=== PATIENT | male | born 1960 | race Caucasian/White ===

== ENCOUNTER → 2020-10-03 | Outpatient (CLI) | payer MEDICARE ==
--- NOTE | 2020-10-03 13:02 | US ---
EXAMINATION TYPE: US venous doppler duplex LE LT DATE OF EXAM: 10/03/2020 12:38 PM COMPARISON: NONE CLINICAL HISTORY: R22.42 SWELLING LEFT LEG. SIDE PERFORMED: Left TECHNIQUE: The lower extremity deep venous system is examined utilizing real time linear array sonog namrata with graded compression, doppler sonography and color-flow sonography. VESSELS IMAGED: Common Femoral Vein Deep Femoral Vein Greater Saphenous Vein * Femoral Vein Popliteal Vein Small Saphenous Vein * Proximal Calf Veins (* superficial vessels) Left Leg: Negative for DVT IMPRESSION: 1. Left lower extremity ultrasound negative for deep venous thrombosis.
== END | disposition home or self-care (01) ==
LOC: RADUSWWP 12:15
PROVIDERS: ATTEND Internal Medicine Hematology & Oncology
DX: R22.42 Localized swelling, mass and lump, left lower limb (principal)

== ENCOUNTER 2020-10-15 20:17 | Emergency (ER) | payer MEDICARE ==
[2020-10-15 20:42] VITALS: RESP 18
--- NOTE | 2020-10-15 22:59 | ED ---
Recheck HPI - General Chief Complaint: Abdominal Pain Stated Complaint: Enlarged stoma Time Seen by Provider: 10/15/20 22:20 Source: patient Mode of arrival: ambulatory Limitations: no limitations - Related Data Home Medications Medication Instructions Recorded Confirmed Atorvastatin [Lipitor] 1 tab PO DAILY 09/24/20 10/10/20 Benazepril [Lotensin] 20 mg PO DAILY 09/24/20 10/10/20 Docusate [Colace] 1 tab PO TID 09/24/20 10/10/20 HYDROcodone/APAP 10-325MG [[place] 1 tab PO Q4HR PRN 09/24/20 10/10/20 10-325] HYDROmorphone [Dilaudid] 1 tab PO Q6HR PRN 09/24/20 10/10/20 Omeprazole 1 tab PO DAILY 09/24/20 10/10/20 Ondansetron HCl [Zofran] 1 tab PO DIRECTED PRN 09/24/20 10/10/20 Prochlorperazine [Compazine] 1 tab PO DIRECTED PRN 09/24/20 10/10/20 Propranolol HCl 1 tab PO BID 09/24/20 10/10/20 Tamsulosin [Flomax] 1 tab PO DAILY 09/24/20 10/10/20 dronabinoL [Marinol] 1 tab PO BID 09/24/20 10/10/20 Morphine Sulfate [Ms Contin] 60 mg PO Q8HR PRN 10/10/20 10/10/20 Allergies Allergy/AdvReac Type Severity Reaction Status Date / Time No Known Allergies Allergy Verified 10/15/20 20:42 Review of Systems ROS Statement: Those systems with pertinent positive or pertinent negative responses have been documented in the HPI. ROS Other: All systems not noted in ROS Statement are negative. Past Medical History Past Medical History: Cancer, Hyperlipidemia, Hypertension Additional Past Medical History / Comment(s): arthritis,pancreatic cancer with mets to liver and lung History of Any Multi-Drug Resistant Organisms: None Reported Past Surgical History: Appendectomy, Back Surgery, Bladder Surgery Additional Past Surgical History / Comment(s): colonoscopy,colostomy,liver biopsy,port placement Past Anesthesia/Blood Transfusion Reactions: No Reported Reaction Smoking Status: Never smoker Past Alcohol Use History: None Reported Past Drug Use History: None Reported General Exam Limitations: no limitations Course Vital Signs 10/15/20 20:37 Temperature 98.0 F Pulse Rate 76 Respiratory 18 Rate Blood Pressure 138/91 O2 Sat by Pulse 97 Oximetry Disposition Clinical Impression: Stomal prolapse Disposition: HOME SELF-CARE Condition: Good Instructions (If sedation given, give patient instructions): Rectal Prolapse (ED) Is patient prescribed a controlled substance at d/c from ED?: No Referrals: Cory Hays MD [STAFF PHYSICIAN] - 1-2 days
[2020-10-16 01:19] VITALS: BP 134/89; PULSE 80; TEMP 97.8
== END 2020-10-16 00:20 | disposition home or self-care (01) ==
LOC: EC 20:17
DX: K31.89 Other diseases of stomach and duodenum (principal); E78.5 Hyperlipidemia, unspecified; I10 Essential (primary) hypertension; Z90.49 Acquired absence of other specified parts of digestive tract

== ENCOUNTER → 2020-10-15 | Outpatient (CLI) | payer MEDICARE ==
[2020-10-15 15:42] LABS: African American GFR (CKD) >90 (>60 ml/min/1.73 sqM); Blood Urea Nitrogen 6 mg/dL (9-20); Non-African American GFR(CKD) >90 (>60 ml/min/1.73 sqM)
--- NOTE | 2020-10-16 09:40 | CT ---
EXAMINATION TYPE: CT ChestAbdPelvis w con DATE OF EXAM: 10/15/2020 COMPARISON: CT 08/03/2020 from outside institution HISTORY: Follow up for pancreatic cancer. CT DLP: 706.6 mGycm Automated exposure control for dose reduction was used. CONTRAST: CT scan of the chest, abdomen and pelvis is performed without Oral Contrast and with IV Contrast, pat ient injected with 100ml mL of Isovue 300. FINDINGS: LUNGS: The lungs are grossly clear, there is no concerning parenchymal mass or nodule identified. T here is no pleural effusion or pneumothorax seen. The tracheobronchial tree is patent. MEDIASTINUM: There are no greater than 1 cm hilar or mediastinal lymph nodes. No pericardial effusi on is seen. AORTA: No significant abnormality is seen. OTHER: There is a port in the right pectoral region coursing via the internal jugular vein approach to the level of the superior vena cava. LIVER/GB: The previously identified peripheral enhancing nodules within the liver are not as well see n, only some minimal low-attenuation is scattered nodularity towards the dome of the liver is present , peripherally enhancing nodules have become less conspicuous but are seen on axial image #62. Gallbl adder is contracted PANCREAS: Pancreatic mass is also less conspicuous, the dilation of the pancreatic duct is no longer seen SPLEEN: No significant abnormality is seen. ADRENALS: No significant abnormality is seen. KIDNEYS: No significant abnormality is seen. REPRODUCTIVE ORGANS: There is some calcification within the prostate, some thickening of the vas defe rens is stable BOWEL: Postop changes are again noted, there is an ostomy in the left lower quadrant, retained stool has improved, some mild thickening of the rectal wall is again noted, there is postop change present in the pelvis related to the sigmoid colon. FREE AIR: Resolved compared to prior. ASCITES: None seen. RETROPERITONEAL ADENOPATHY: No retroperitoneal adenopathy is seen. LYMPH NODES: No greater than 1 cm abdominal or pelvic lymph nodes are appreciated. URINARY BLADDER: , Left-sided [place] diverticuli again noted. PELVIC ADENOPATHY: None visualized. OSSEOUS STRUCTURES: Sclerotic foci involving the pelvis are somewhat more well-defined, lesion in th e proximal left femur appears somewhat improved. Sclerotic foci present within the spine and ribs are noted, sternum and manubrium, right scapula visualized foci within the lower spine more conspicuous. IMPRESSION: There is improvement in the appearance of the liver and pancreas. Bone metastases are be tter visualized than on prior, possible treatment changes, additional findings above
== END | disposition home or self-care (01) ==
LOC: RADPROMAIN 14:39
PROVIDERS: ATTEND Internal Medicine Hematology & Oncology
DX: Z03.89 Encounter for observation for other suspected diseases and conditions ruled out (principal); C25.1 Malignant neoplasm of body of pancreas; C79.51 Secondary malignant neoplasm of bone; K76.89 Other specified diseases of liver; K82.0 Obstruction of gallbladder; N42.89 Other specified disorders of prostate; N32.3 Diverticulum of bladder; Z95.828 Presence of other vascular implants and grafts
CPT/HCPCS: 82565; 84520; 71260; 74177; 36415; J1642; Q9967

== ENCOUNTER → 2020-10-17 | Outpatient (CLI) | payer MEDICARE ==
[2020-10-17 11:28] LABS: Potassium 4.1 mmol/L (3.5-5.1)
[2020-10-17 11:51] LABS: Anisocytosis Slight; HCT 36.6 % (39.0-53.0); HGB 12.3 gm/dL (13.0-17.5); MCH 30.7 pg (25.0-35.0); MCHC 33.7 g/dL (31.0-37.0); MCV 91.2 fL (80.0-100.0); Mean Platelet Volume 8.3; RBC 4.01 m/uL (4.30-5.90); RDW 16.6 % (11.5-15.5); WBC 2.4 k/uL (3.8-10.6)
[2020-10-17 12:44] LABS: Platelet Count 88 k/uL (150-450)
== END | disposition home or self-care (01) ==
LOC: LABPAT 09:58
PROVIDERS: ATTEND Surgery
DX: Z01.818 Encounter for other preprocedural examination (principal); K94.09 Other complications of colostomy
CPT/HCPCS: 36415; 80051; 85027; 93005

== ENCOUNTER 2020-10-19 09:48 | Inpatient (IN) | payer MEDICARE ==
[2020-10-17 14:34] VITALS: BMI 21.5
[~2020-10-19 09:48] MED LIST: ACETAMINOPHEN TAB 500 MG TAB PO PRN; HEPARIN SODIUM,PORCINE/PF 5,000 UNIT/0.5 ML SYRINGE SQ PRN; LACTATED RINGERS 1,000 ML IV SCH; LIDOCAINE 1% (10MG/ML) FOR IV START INTRADERMA PRN; MIDAZOLAM 2 MG/2 ML VIAL IV PRN; metroNIDAZOLE-NS PMX 500 MG in SALINE 1 100ML.BAG IVPB PRN
[2020-10-19] MEDS ORDERED: ONDANSETRON 4 MG/2 ML VIAL ONE (10:49)
[2020-10-19] MEDS ORDERED: ONDANSETRON 4 MG/2 ML VIAL IVP ONE (10:53)
[2020-10-19] MEDS ORDERED: DEXAMETHASONE SOD PHOSPHATE 4 MG/ML 1 ML VIAL IV ONE (10:53)
[2020-10-19 11:06] LABS: Anisocytosis Slight; Basophils % (A) 0 %; Eosinophils # (A) 0.6 k/uL (0-0.7); Eosinophils % (A) 12 %; HCT 36.4 % (39.0-53.0); Lymphocytes # (A) 0.9 k/uL (1.0-4.8); Lymphocytes % (A) 18 %; MCH 29.8 pg (25.0-35.0); MCV 90.4 fL (80.0-100.0); Mean Platelet Volume 7.9; Monocytes # (A) 0.4 k/uL (0-1.0); Monocytes % (A) 8 %; Neutrophils % (A) 60 %; RBC 4.02 m/uL (4.30-5.90); RDW 17.2 % (11.5-15.5); WBC 5.1 k/uL (3.8-10.6)
[2020-10-19 11:28] LABS: INR 1.1 (<1.2); Partial Thromboplastin Time 25.9 sec (22.0-30.0); Prothrombin Time 11.4 sec (9.0-12.0)
[2020-10-19 11:29] LABS: Platelet Count 85 k/uL (150-450)
--- NOTE | 2020-10-19 11:33 | P.GSHP ---
History of Present Illness H&P Date: 10/19/20 Chief Complaint: Prolapse of colostomy This is a 60-year-old male with prolapse colostomy. Patient is today for revision of colostomy. He has prolapse of approximately 6 inches of colon. Past Medical History Past Medical History: Cancer, Hyperlipidemia, Hypertension Additional Past Medical History / Comment(s): arthritis,pancreatic cancer with mets-last chemo 10-10-20,IV steroids 10-10-20,ruptured bowel r/t constipation Jul 2020 History of Any Multi-Drug Resistant Organisms: None Reported Past Surgical History: Appendectomy, Back Surgery, Bladder Surgery, Bowel Resection Additional Past Surgical History / Comment(s): colonoscopy,colostomy,liver biopsy,port placement Past Anesthesia/Blood Transfusion Reactions: No Reported Reaction Additional Past Anesthesia/Blood Transfusion Reaction / Comment(s): no hx blood transfusion Smoking Status: Never smoker - Past Family History Mother Family Medical History: No Reported History Medications and Allergies Home Medications Medication Instructions Recorded Confirmed Type Docusate [Colace] 100 mg PO TID PRN 09/24/20 10/17/20 History HYDROcodone/APAP 10-325MG [[place] 1 tab PO Q4HR PRN 09/24/20 10/17/20 History 10-325] HYDROmorphone [Dilaudid] 4 mg PO Q4H PRN 09/24/20 10/17/20 History Omeprazole 20 mg PO QAM 09/24/20 10/17/20 History Prochlorperazine [Compazine] 10 mg PO BID PRN 09/24/20 10/17/20 History Propranolol HCl 80 mg PO BID 09/24/20 10/17/20 History Tamsulosin [Flomax] 0.4 mg PO QAM 09/24/20 10/17/20 History Morphine Sulfate [Ms Contin] 60 mg PO Q8HR PRN 10/10/20 10/19/20 History Benazepril HCl 20 mg PO QAM 10/15/20 10/17/20 History Lidocaine-Prilocaine Cream [Emla 1 applic TOPICAL DAILY PRN 10/15/20 10/17/20 History Cream 2.5%/2.5%] Meclizine HCl [Bonine] 25 mg PO BID PRN 10/15/20 10/17/20 History ondansetron HCL [Zofran] 8 mg PO Q8HR PRN 10/15/20 10/17/20 History ALPRAZolam [Xanax] 0.25 mg PO TID PRN 10/17/20 10/19/20 History Allergies Allergy/AdvReac Type Severity Reaction Status Date / Time No Known Allergies Allergy Verified 10/19/20 10:16 Surgical - Exam Vital Signs Temp Pulse Resp BP Pulse Ox 97.8 F 78 16 132/75 96 10/19/20 10:27 10/19/20 10:27 10/19/20 10:27 10/19/20 10:27 10/19/20 10:27 - General well developed, well nourished, no distress - Eyes PERRL - ENT normal pinna - Neck no masses - Respiratory normal expansion - Cardiovascular Rhythm: regular - Abdomen Left lower quadrant colostomy with 6 inches prolapse Abdomen: soft, non tender Results - Labs 10/19/20 10:40 Abnormal Lab Results - Last 24 Hours (Table) 10/19/20 Range/Units 10:40 RBC 4.02 L (4.30-5.90) m/uL Hgb 12.0 L (13.0-17.5) gm/dL Hct 36.4 L (39.0-53.0) % RDW 17.2 H (11.5-15.5) % Plt Count 85 L (150-450) k/uL Lymphocytes # 0.9 L (1.0-4.8) k/uL Assessment and Plan Assessment: Prolapsed colostomy. We'll perform revision of ostomy.
[2020-10-19] MEDS ORDERED: PROPOFOL 10 MG/ML 20 ML VIAL IV ONE (12:08)
[2020-10-19] MEDS ORDERED: LIDOCAINE 1% INJ 10MG/ML (20 ML MDV) ONE (12:08)
[2020-10-19] MEDS ORDERED: PHENYLEPHRINE-0.9% NACL SYG 1,000 MCG/10 ML SYRINGE ONE (12:08)
[2020-10-19] MEDS ORDERED: SUCCINYLCHOLINE CHLORIDE 100 MG/5 ML SYR IV ONE (12:08)
[2020-10-19] MEDS ORDERED: fentaNYL (PF) 50 MCG/ML 2 ML AMP ONE (12:08)
--- NOTE | 2020-10-19 12:56 | P.OP ---
Date of Procedure: 10/19/20 Preoperative Diagnosis: Colostomy prolapse Postoperative Diagnosis: Colostomy prolapse Procedure(s) Performed: Revision of colostomy Anesthesia: MANNIE Surgeon: Cory Hays Estimated Blood Loss (ml): 5 Pathology: other (colon) Condition: stable Disposition: PACU Description of Procedure: The patient's placed on the operative table in supine position. He received general anesthesia. His abdomen was prepped and draped usual fashion. The prolapse colostomy was visualized. Approximately 6 inches: A prolapse. The mucocutaneous junction was divided with electrocautery. Then using left cautery and subcu tissue divided. The colon was free. Using the LigaSure device the m esentery the bowel was divided. And then the colon was opened using left cautery. The specimens of pathology. The colostomy then matured using 3-0 Vicryl suture. Patient top she will was sent to recovery room in stable condition.
[2020-10-19] MEDS: HYDROmorphone 0.5 MG/0.5 ML SYRINGE IVP PRN ×6 (13:15→13:46)
[2020-10-19 13:35] VITALS: TEMP 97.3
[2020-10-19 14:11] VITALS: RESP 18
[2020-10-19 14:27] VITALS: BP 148/67; PULSE 78
== END 2020-10-19 14:39 | disposition home or self-care (01) | DRG 330 ==
LOC: 2ORMAIN 09:48
PROVIDERS: ADMIT Surgery; ATTEND Surgery
PROC: 0D1E0Z4 Bypass Large Intestine to Cutaneous, Open Approach (ICD-10-PCS; principal; 2020-10-19 11:45)
DX: K94.09 Other complications of colostomy (principal); C25.9 Malignant neoplasm of pancreas, unspecified; C79.9 Secondary malignant neoplasm of unspecified site; E78.5 Hyperlipidemia, unspecified; I10 Essential (primary) hypertension; K59.00 Constipation, unspecified; Z79.891 Long term (current) use of opiate analgesic; Z79.899 Other long term (current) drug therapy
CPT/HCPCS: 36415; 80051; 85025; 85027; 85610; 85730; 86850; 86900; 86901; 88304; 93005

== ENCOUNTER 2020-12-12 09:49 | Day surgery (SDC) | payer MEDICARE ==
[2020-12-11 09:30] VITALS: BMI 21.7
[~2020-12-12 09:49] MED LIST changes: -LACTATED RINGERS 1,000 ML IV SCH; -LIDOCAINE 1% (10MG/ML) FOR IV START INTRADERMA PRN; -MIDAZOLAM 2 MG/2 ML VIAL IV PRN
[2020-12-12] MEDS ORDERED: LACTATED RINGERS 1,000 ML IV ONE ×3 (10:12→13:42)
[2020-12-12] MEDS ORDERED: ONDANSETRON 4 MG/2 ML VIAL ONE (10:36)
[2020-12-12 10:50] LABS: Anisocytosis Slight; Basophils # (A) 0.1 k/uL (0-0.2); Basophils % (A) 1 %; Eosinophils # (A) 0.2 k/uL (0-0.7); Eosinophils % (A) 2 %; HCT 40.4 % (39.0-53.0); HGB 13.2 gm/dL (13.0-17.5); Lymphocytes # (A) 1.3 k/uL (1.0-4.8); Lymphocytes % (A) 21 %; MCH 29.7 pg (25.0-35.0); MCHC 32.7 g/dL (31.0-37.0); MCV 90.8 fL (80.0-100.0); Mean Platelet Volume 7.6; Monocytes # (A) 0.5 k/uL (0-1.0); Monocytes % (A) 8 %; Neutrophils # (A) 4.3 k/uL (1.3-7.7); Neutrophils % (A) 66 %; Platelet Count 150 k/uL (150-450); RBC 4.44 m/uL (4.30-5.90); RDW 16.7 % (11.5-15.5); WBC 6.5 k/uL (3.8-10.6)
--- NOTE | 2020-12-12 11:39 | P.GSHP ---
History of Present Illness H&P Date: 12/12/20 Chief Complaint: Prolapse of colostomy. This a 60-year-old male who presents today for revision of colostomy. Patient has a prolapsing colostomy. Past Medical History Past Medical History: Cancer, Hyperlipidemia, Hypertension Additional Past Medical History / Comment(s): arthritis,pancreatic cancer with mets to liver and lung. colostomy, mediport for chemo- continuing to receive chemo. increasing shortness of breath. colostomy prolapse History of Any Multi-Drug Resistant Organisms: None Reported Past Surgical History: Appendectomy, Back Surgery, Bladder Surgery Additional Past Surgical History / Comment(s): colonoscopy,colostomy,liver biopsy,port placement. colostomy revision 10/19/20 Past Anesthesia/Blood Transfusion Reactions: Previous Problems w/ Anesthesia, Motion Sickness, Postoperative Nausea & Vomiting (PONV) Additional Past Anesthesia/Blood Transfusion Reaction / Comment(s): no hx blood transfusion. "seems to take a long time to get out of my system" Smoking Status: Never smoker - Past Family History Mother Family Medical History: No Reported History Medications and Allergies Home Medications Medication Instructions Recorded Confirmed Type Docusate [Colace] 100 mg PO TID PRN 09/24/20 12/12/20 History HYDROcodone/APAP 10-325MG [[place] 1 tab PO Q4HR PRN 09/24/20 12/12/20 History 10-325] HYDROmorphone [Dilaudid] 4 mg PO Q4H PRN 09/24/20 12/12/20 History Omeprazole 20 mg PO HS 09/24/20 12/12/20 History Prochlorperazine [Compazine] 10 mg PO BID PRN 09/24/20 12/12/20 History Propranolol HCl 80 mg PO BID 09/24/20 12/12/20 History Tamsulosin [Flomax] 0.4 mg PO QAM 09/24/20 12/12/20 History Morphine Sulfate [Ms Contin] 60 mg PO Q12H PRN 10/10/20 12/12/20 History Benazepril HCl 20 mg PO QAM 10/15/20 12/12/20 History Lidocaine-Prilocaine Cream [Emla 1 applic TOPICAL DAILY PRN 10/15/20 12/12/20 History Cream 2.5%/2.5%] Meclizine HCl [Bonine] 25 mg PO BID PRN 10/15/20 12/12/20 History ondansetron HCL [Zofran] 8 mg PO Q8HR PRN 10/15/20 12/12/20 History ALPRAZolam [Xanax] 0.25 mg PO TID PRN 10/17/20 12/12/20 History Lipase/Protease/Amylase [[place] 12,000 units PO TID 11/28/20 12/12/20 History 12,000 Units Capsule] Allergies Allergy/AdvReac Type Severity Reaction Status Date / Time No Known Allergies Allergy Verified 12/12/20 10:15 Surgical - Exam Vital Signs Temp Pulse Resp BP Pulse Ox 97.8 F 64 16 170/92 98 12/12/20 10:22 12/12/20 10:22 12/12/20 10:22 12/12/20 10:22 12/12/20 10:22 - General well developed, well nourished, no distress - Eyes PERRL - ENT normal pinna - Neck no masses - Respiratory normal expansion - Cardiovascular Rhythm: regular - Abdomen Colostomy with 5 inches of prolapse Abdomen: soft, non tender Results - Labs 12/12/20 10:33 Abnormal Lab Results - Last 24 Hours (Table) 12/12/20 Range/Units 10:33 RDW 16.7 H (11.5-15.5) % Assessment and Plan Assessment: Prolapsed colostomy. We'll perform revision.
[2020-12-12] MEDS ORDERED: SUCCINYLCHOLINE CHLORIDE 100 MG/5 ML SYR IV ONE (11:59)
[2020-12-12] MEDS ORDERED: LIDOCAINE 1% INJ 10MG/ML (20 ML MDV) ONE (11:59)
[2020-12-12] MEDS ORDERED: fentaNYL (PF) 50 MCG/ML 2 ML AMP ONE (11:59)
[2020-12-12] MEDS ORDERED: PROPOFOL 10 MG/ML 20 ML VIAL IV ONE (11:59)
[2020-12-12] MEDS ORDERED: MIDAZOLAM 2 MG/2 ML VIAL ONE (11:59)
--- NOTE | 2020-12-12 12:48 | P.OP ---
Date of Procedure: 12/12/20 Preoperative Diagnosis: Prolapse of colostomy Postoperative Diagnosis: Same Procedure(s) Performed: Revision of colostomy Anesthesia: MANNIE Surgeon: Cory Hays Estimated Blood Loss (ml): 10 Pathology: other (colon) Condition: stable Disposition: PACU Description of Procedure: Patient's placed on the operating table in supine position. He received general anesthesia. His abdomen was prepped and draped in sterile fashion. Patient approximate 6 inches of prolapse colon. The skin at the mucocutaneous junction was cut with cautery. And then the colon was pulled through the abdominal wall. The redundant colon was then marked and then transected with the cautery. The mesentery was divided with the Enseal device. The colostomy then matured using 3-0 Vicryl suture. The appliance applied. Patient tolerated the procedure well.
[2020-12-12 12:55] VITALS: TEMP 97.2
[2020-12-12] MEDS ORDERED: HYDROmorphone 0.5 MG/0.5 ML SYRINGE IVP ONE ×4 (13:01→14:05)
[2020-12-12] MEDS ORDERED: HYDROcodone/APAP 10-325MG 1 EACH TAB PO ONE ×2 (13:37→14:19)
[2020-12-12 14:23] VITALS: RESP 16
[2020-12-12 14:39] VITALS: BP 166/80; PULSE 69
== END 2020-12-12 14:54 | disposition home or self-care (01) ==
LOC: OR 09:49 → EDSTATUS 10:45 → OR 14:54
PROVIDERS: ATTEND Surgery
DX: K94.03 Colostomy malfunction (principal); Q43.8 Other specified congenital malformations of intestine; E78.5 Hyperlipidemia, unspecified; I10 Essential (primary) hypertension; K21.9 Gastro-esophageal reflux disease without esophagitis; M19.90 Unspecified osteoarthritis, unspecified site; Z85.07 Personal history of malignant neoplasm of pancreas; Z85.05 Personal history of malignant neoplasm of liver; Z85.118 Personal history of other malignant neoplasm of bronchus and lung; Z90.89 Acquired absence of other organs; Z98.890 Other specified postprocedural states; Z95.828 Presence of other vascular implants and grafts; Z97.2 Presence of dental prosthetic device (complete) (partial); Z79.899 Other long term (current) drug therapy
CPT/HCPCS: 88304; 85025; 44345; J2250; J0690; J2405; J2001; J3010; J0330; J2704; J1170; J1644

== ENCOUNTER → 2021-02-25 | Outpatient (CLI) | payer MEDICARE ==
[2021-02-25 14:02] LABS: Potassium 4.1 mmol/L (3.5-5.1)
== END | disposition home or self-care (01) ==
LOC: LABPAT 12:44
PROVIDERS: ATTEND Surgery
DX: Z01.812 Encounter for preprocedural laboratory examination (principal); K57.32 Diverticulitis of large intestine without perforation or abscess without bleeding
CPT/HCPCS: 36415; 80051; 86850; 86900; 86901

== ENCOUNTER 2021-02-27 06:54 | Day surgery (SDC) | payer MEDICARE ==
[2021-02-22 16:12] VITALS: BMI 21.7
[2021-02-27] MEDS ORDERED: LACTATED RINGERS 1,000 ML IV SCH (07:00)
[2021-02-27] MEDS ORDERED: DEXAMETHASONE SOD PHOSPHATE 4 MG/ML 1 ML VIAL IV ONE (07:00)
[2021-02-27] MEDS ORDERED: ONDANSETRON 4 MG/2 ML VIAL ONE (07:44)
--- NOTE | 2021-02-27 08:59 | P.GSHP ---
History of Present Illness H&P Date: 02/27/21 Chief Complaint: Prolapse of colostomy This a 60-year-old male who presents today for revision of colostomy. Patient developed a 6 inch prolapse of his colostomy. Past Medical History Past Medical History: Cancer, Hyperlipidemia, Hypertension, Osteoarthritis (OA), Prostate Disorder Additional Past Medical History / Comment(s): BPH, arthritis, 07/2020 pancreatic cancer with mets to liver and lung - has colostomy, mediport for chemo w/ weekly tx. Multiple colostomy prolapses History of Any Multi-Drug Resistant Organisms: None Reported Past Surgical History: Appendectomy, Back Surgery, Bladder Surgery, Bowel Resection Additional Past Surgical History / Comment(s): Back surg x10, colonoscopy, colostomy 07/2020, liver biopsy, port placement,. colostomy revision 10/19/20, 12/12/20 Past Anesthesia/Blood Transfusion Reactions: Previous Problems w/ Anesthesia, Motion Sickness, Postoperative Nausea & Vomiting (PONV) Additional Past Anesthesia/Blood Transfusion Reaction / Comment(s): no hx blood transfusion;. "seems to take a long time to get out of my system" Smoking Status: Former smoker - Past Family History Mother Family Medical History: No Reported History Medications and Allergies Home Medications Medication Instructions Recorded Confirmed Type Docusate [Colace] 100 mg PO TID PRN 09/24/20 02/22/21 History HYDROcodone/APAP 10-325MG [[place] 1 tab PO Q4HR PRN 09/24/20 02/22/21 History 10-325] HYDROmorphone [Dilaudid] 4 mg PO Q4H PRN 09/24/20 02/22/21 History Omeprazole 20 mg PO HS 09/24/20 02/22/21 History Prochlorperazine [Compazine] 10 mg PO BID PRN 09/24/20 02/22/21 History Propranolol HCl 80 mg PO BID 09/24/20 02/22/21 History Tamsulosin [Flomax] 0.4 mg PO QAM 09/24/20 02/22/21 History Morphine Sulfate [Ms Contin] 60 mg PO Q8H 10/10/20 02/22/21 History Benazepril HCl 20 mg PO QAM 10/15/20 02/22/21 History Lidocaine-Prilocaine Cream [Emla 1 applic TOPICAL DIRECTED PRN 10/15/20 02/22/21 History Cream 2.5%/2.5%] Meclizine HCl [Bonine] 25 mg PO BID PRN 10/15/20 02/22/21 History ondansetron HCL [Zofran] 8 mg PO Q8HR PRN 10/15/20 02/22/21 History ALPRAZolam [Xanax] 0.25 mg PO TID PRN 10/17/20 02/22/21 History polyethylene glycoL 3350 [Miralax] 17 gm PO DAILY PRN 02/22/21 02/22/21 History Allergies Allergy/AdvReac Type Severity Reaction Status Date / Time No Known Allergies Allergy Verified 02/27/21 07:34 Surgical - Exam Vital Signs Temp Pulse Resp BP Pulse Ox 98.3 F 63 16 135/76 93 L 02/27/21 07:29 02/27/21 07:29 02/27/21 07:29 02/27/21 07:29 02/27/21 07:29 - General well developed, well nourished, no distress - Eyes PERRL - ENT normal pinna - Neck no masses - Respiratory normal expansion - Cardiovascular Rhythm: regular - Abdomen Colostomy prolapse approximate 4 inches of colostomy prolapse Abdomen: soft, non tender Assessment and Plan Assessment: Prolapsed colostomy. We'll perform revision.
--- NOTE | 2021-02-27 10:18 | P.OP ---
Description of Procedure: Date of Procedure: 02/27/21 Preoperative Diagnosis: Prolapse of colostomy Postoperative Diagnosis: Prolapse of colostomy Procedure(s) Performed: Partial omentectomy Partial colectomy Original colostomy Anesthesia: CAROLEE CHAND Surgeon: Cory Hays Estimated Blood Loss (ml): 5 Pathology: other (Omentum, colon) Condition: stable Disposition: PACU Description of Procedure: The patient's placed on the operating table in the supine position. He received general anesthesia. His abdomen was prepped and draped usual sterile fashion. The skin at the colostomy site was incised of any cutaneous junction. The colostomy was prolapsed prostate 4 inches. This point using electrocautery and the Enseal device the redundant colon was dissected free. The omentum was transected and sent to pathology. The redundant colon was then cut with electrocautery. And then the colostomy was matured using 3-0 Vicryl suture. Patient top she will was sent to recovery room in stable condition.
[2021-02-27 10:19] VITALS: TEMP 99.2
[2021-02-27] MEDS: HYDROmorphone 0.5 MG/0.5 ML SYRINGE IVP PRN ×3 (10:21→10:43)
[2021-02-27 10:38] VITALS: RESP 16
[2021-02-27 11:33] VITALS: BP 123/75; PULSE 74
[2021-02-27] MEDS ORDERED: HYDROcodone/APAP 10-325MG 1 EACH TAB PO ONE (12:10)
[2021-02-27] MEDS ORDERED: HYDROcodone/APAP 10-325MG 1 EACH TAB ONE (12:14)
== END 2021-02-27 12:33 | disposition home or self-care (01) ==
LOC: OR 06:54
PROVIDERS: ATTEND Surgery
DX: K94.09 Other complications of colostomy (principal); Y83.8 Other surgical procedures as the cause of abnormal reaction of the patient, or of later complication, without mention of misadventure at the time of the procedure; Q43.8 Other specified congenital malformations of intestine; I10 Essential (primary) hypertension; E78.5 Hyperlipidemia, unspecified; M19.90 Unspecified osteoarthritis, unspecified site; C25.9 Malignant neoplasm of pancreas, unspecified; C78.7 Secondary malignant neoplasm of liver and intrahepatic bile duct; C78.00 Secondary malignant neoplasm of unspecified lung; Z87.891 Personal history of nicotine dependence; Z92.21 Personal history of antineoplastic chemotherapy; N40.0 Benign prostatic hyperplasia without lower urinary tract symptoms; Z79.899 Other long term (current) drug therapy; F41.9 Anxiety disorder, unspecified; Z79.891 Long term (current) use of opiate analgesic
CPT/HCPCS: 88304; 49255; J1100; J0690; J2405; J1170; J1644; 86850; 86900; 86901

== ENCOUNTER 2021-03-11 22:30 | Inpatient (IN) | payer MEDICARE ==
[2021-03-11] MEDS ORDERED: SODIUM CHLORIDE 0.9% 1,000 ML IV STA ×2 (23:24→23:57)
[2021-03-11] MEDS ORDERED: ACETAMINOPHEN TAB 325 MG TAB PO PRN (23:24)
[2021-03-11] MEDS ORDERED: KETOROLAC 15 MG/ML 1 ML VIAL IVP STA (23:24)
[2021-03-11] MEDS ORDERED: ACETAMINOPHEN TAB 500 MG TAB PO STA (23:24)
--- NOTE | 2021-03-11 23:25 | ED ---
Fever HPI - General Chief Complaint: Fever Stated Complaint: Stoma infection Time Seen by Provider: 03/11/21 23:21 Source: patient, RN notes reviewed, old records reviewed, Caregiver Mode of arrival: ambulatory Limitations: no limitations - History of Present Illness MD Complaint: fever, weakness, other (Likely stoma infection or cellulitis) -: days(s) Temperature Source: oral Context: on chemotherapy (Patient has not had chemotherapy in 2 weeks) Associated Symptoms: chills, myalgias, abdominal pain, nausea Treatments Prior to Arrival: none - Related Data Home Medications Medication Instructions Recorded Confirmed Docusate [Colace] 100 mg PO TID 09/24/20 03/12/21 HYDROcodone/APAP 10-325MG [[place] 1 tab PO Q4HR PRN 09/24/20 03/12/21 10-325] HYDROmorphone [Dilaudid] 4 mg PO Q4H PRN 09/24/20 03/12/21 Omeprazole 20 mg PO HS 09/24/20 03/12/21 Prochlorperazine [Compazine] 10 mg PO Q8H PRN 09/24/20 03/12/21 Propranolol HCl 80 mg PO BID 09/24/20 03/12/21 Tamsulosin [Flomax] 0.4 mg PO QAM 09/24/20 03/12/21 Morphine Sulfate [Ms Contin] 60 mg PO Q8H 10/10/20 03/12/21 Benazepril HCl 20 mg PO QAM 10/15/20 03/12/21 Lidocaine-Prilocaine Cream [Emla 1 applic TOPICAL DIRECTED PRN 10/15/20 03/12/21 Cream 2.5%/2.5%] Meclizine HCl [Bonine Chew] 25 mg PO TID PRN 10/15/20 03/12/21 ondansetron HCL [Zofran] 8 mg PO Q8HR PRN 10/15/20 03/12/21 ALPRAZolam [Xanax] 0.25 mg PO TID PRN 10/17/20 03/12/21 polyethylene glycoL 3350 [Miralax] 17 gm PO DAILY PRN 02/22/21 03/12/21 Previous Rx's Medication Instructions Recorded Amoxicillin/Potassium Clav 1 tab PO Q12HR 5 Days #10 tab 03/16/21 [Augmentin 875-125 Tablet] Allergies Allergy/AdvReac Type Severity Reaction Status Date / Time No Known Allergies Allergy Verified 03/12/21 07:33 Review of Systems ROS Statement: Those systems with pertinent positive or pertinent negative responses have been documented in the HPI. ROS Other: All systems not noted in ROS Statement are negative. Past Medical History Past Medical History: Cancer, Hyperlipidemia, Hypertension, Osteoarthritis (OA), Prostate Disorder Additional Past Medical History / Comment(s): BPH, arthritis, 07/2020 pancreatic cancer with mets to liver and lung - has colostomy, mediport for chemo w/ weekly tx. Multiple colostomy prolapses History of Any Multi-Drug Resistant Organisms: None Reported Past Surgical History: Appendectomy, Back Surgery, Bladder Surgery, Bowel Resection Additional Past Surgical History / Comment(s): Back surg x10, colonoscopy, colostomy 07/2020, liver biopsy, port placement,. colostomy revision 10/19/20, 12/12/20,02/27/21 Past Anesthesia/Blood Transfusion Reactions: Previous Problems w/ Anesthesia, Motion Sickness, Postoperative Nausea & Vomiting (PONV) Additional Past Anesthesia/Blood Transfusion Reaction / Comment(s): no hx blood transfusion;. "seems to take a long time to get out of my system" Past Psychological History: Anxiety Smoking Status: Former smoker Past Alcohol Use History: None Reported Past Drug Use History: None Reported - Past Family History Mother Family Medical History: No Reported History General Exam - General Exam Comments Initial Comments: Stoma does appear to be draining, some mild surrounding cellulitis, diffuse abdominal tenderness Limitations: no limitations General appearance: alert, in no apparent distress Head exam: Present: atraumatic, normocephalic, normal inspection Eye exam: Present: normal appearance, PERRL, EOMI. Absent: scleral icterus, conjunctival injection, periorbital swelling ENT exam: Present: normal exam, mucous membranes moist Neck exam: Present: normal inspection. Absent: tenderness, meningismus, lymphadenopathy Respiratory exam: Present: normal lung sounds bilaterally. Absent: respiratory distress, wheezes, rales, rhonchi, stridor Cardiovascular Exam: Present: regular rate, normal rhythm, normal heart sounds. Absent: systolic murmur, diastolic murmur, rubs, gallop, clicks GI/Abdominal exam: Present: soft, normal bowel sounds. Absent: distended, tenderness, guarding, rebound, rigid Extremities exam: Present: normal inspection, full ROM, normal capillary refill. Absent: tenderness, pedal edema, joint swelling, calf tenderness Back exam: Present: normal inspection Neurological exam: Present: alert, oriented X3, CN II-XII intact Psychiatric exam: Present: normal affect, normal mood Skin exam: Present: warm, dry, intact, normal color. Absent: rash Course Vital Signs 03/11/21 03/12/21 03/12/21 22:50 01:19 03:40 Temperature 98.6 F 97.9 F Pulse Rate 86 81 78 Pulse Rate [ Left] Respiratory 20 16 18 Rate Blood Pressure 136/86 110/80 106/78 Blood Pressure [Right Arm] O2 Sat by Pulse 95 96 97 Oximetry 03/12/21 03/12/21 03/12/21 06:42 08:00 08:42 Temperature 97.3 F L 98.2 F Pulse Rate 75 Pulse Rate [ 81 Left] Respiratory 16 16 18 Rate Blood Pressure 104/75 Blood Pressure 102/67 [Right Arm] O2 Sat by Pulse 99 93 L Oximetry 03/12/21 03/12/21 03/12/21 09:00 14:00 15:48 Temperature 98.5 F Pulse Rate 76 81 Pulse Rate [ Left] Respiratory 16 18 18 Rate Blood Pressure 106/72 100/61 Blood Pressure [Right Arm] O2 Sat by Pulse 99 96 Oximetry - Reevaluation(s) Reevaluation #1: 03/12/21 00:09 Medical record is reviewed Patient symptoms are improved here in the emergency department Patient is informed results and questions answered Patient is in no acute distress Medical Decision Making - Lab Data Result diagrams: 03/16/21 04:42 03/16/21 04:42 Lab Results 03/11/21 03/11/21 03/11/21 Range/Units 23:56 23:56 23:56 WBC 17.9 H (3.8-10.6) k/uL RBC 3.48 L (4.30-5.90) m/uL Hgb 10.0 L (13.0-17.5) gm/dL Hct 31.8 L (39.0-53.0) % MCV 91.4 (80.0-100.0) fL MCH 28.6 (25.0-35.0) pg MCHC 31.3 (31.0-37.0) g/dL RDW 16.5 H (11.5-15.5) % Plt Count 171 D (150-450) k/uL MPV 8.6 Neutrophils % 85 % Lymphocytes % 5 % Monocytes % 7 % Eosinophils % 2 % Basophils % 0 % Neutrophils # 15.2 H (1.3-7.7) k/uL Lymphocytes # 0.8 L (1.0-4.8) k/uL Monocytes # 1.2 H (0-1.0) k/uL Eosinophils # 0.3 (0-0.7) k/uL Basophils # 0.1 (0-0.2) k/uL Hypochromasia Marked Poikilocytosis Slight Anisocytosis Slight PT 12.6 H (9.0-12.0) sec INR 1.2 H (<1.2) APTT 25.7 (22.0-30.0) sec Sodium 133 L (137-145) mmol/L Potassium 4.3 (3.5-5.1) mmol/L Chloride 96 L (98-107) mmol/L Carbon Dioxide 32 H (22-30) mmol/L Anion Gap 5 mmol/L BUN 12 (9-20) mg/dL Creatinine 0.51 L (0.66-1.25) mg/dL Est GFR (CKD-EPI)AfAm >90 (>60 ml/min/1.73 sqM) Est GFR (CKD-EPI)NonAf >90 (>60 ml/min/1.73 sqM) Glucose 128 H (74-99) mg/dL Plasma Lactic Acid Tam (0.7-2.0) mmol/L Calcium 10.7 H (8.4-10.2) mg/dL Magnesium 2.0 (1.6-2.3) mg/dL Total Bilirubin 0.7 (0.2-1.3) mg/dL AST 28 (17-59) U/L ALT 12 (4-49) U/L Alkaline Phosphatase 525 H (38-126) U/L Lactate Dehydrogenase 285 L (313-618) U/L C-Reactive Protein 19.9 H (<1.0) mg/dL NT-Pro-B Natriuret Pep pg/mL Total Protein 5.5 L (6.3-8.2) g/dL Albumin 2.8 L (3.5-5.0) g/dL Lipase <10 L (23-300) U/L Coronavirus (PCR) (Not Detectd) 03/11/21 03/11/21 03/12/21 Range/Units 23:56 23:56 08:45 WBC (3.8-10.6) k/uL RBC (4.30-5.90) m/uL Hgb (13.0-17.5) gm/dL Hct (39.0-53.0) % MCV (80.0-100.0) fL MCH (25.0-35.0) pg MCHC (31.0-37.0) g/dL RDW (11.5-15.5) % Plt Count (150-450) k/uL MPV Neutrophils % % Lymphocytes % % Monocytes % % Eosinophils % % Basophils % % Neutrophils # (1.3-7.7) k/uL Lymphocytes # (1.0-4.8) k/uL Monocytes # (0-1.0) k/uL Eosinophils # (0-0.7) k/uL Basophils # (0-0.2) k/uL Hypochromasia Poikilocytosis Anisocytosis PT (9.0-12.0) sec INR (<1.2) APTT (22.0-30.0) sec Sodium (137-145) mmol/L Potassium (3.5-5.1) mmol/L Chloride (98-107) mmol/L Carbon Dioxide (22-30) mmol/L Anion Gap mmol/L BUN (9-20) mg/dL Creatinine (0.66-1.25) mg/dL Est GFR (CKD-EPI)AfAm (>60 ml/min/1.73 sqM) Est GFR (CKD-EPI)NonAf (>60 ml/min/1.73 sqM) Glucose (74-99) mg/dL Plasma Lactic Acid Tam 1.4 (0.7-2.0) mmol/L Calcium (8.4-10.2) mg/dL Magnesium (1.6-2.3) mg/dL Total Bilirubin (0.2-1.3) mg/dL AST (17-59) U/L ALT (4-49) U/L Alkaline Phosphatase (38-126) U/L Lactate Dehydrogenase (313-618) U/L C-Reactive Protein (<1.0) mg/dL NT-Pro-B Natriuret Pep 300 pg/mL Total Protein (6.3-8.2) g/dL Albumin (3.5-5.0) g/dL Lipase (23-300) U/L Coronavirus (PCR) Not Detected (Not Detectd) - EKG Data -: EKG Interpreted by Me (EKG shows sinus rhythm 83 WA 114 QRS 84 QTc 425) Disposition Clinical Impression: Fever, Cellulitis at gastrostomy tube site Disposition: ADMITTED IP TO THIS HOSP Condition: Fair Is patient prescribed a controlled substance at d/c from ED?: No
[2021-03-11] MEDS ORDERED: AMPICILLIN-SULBACTAM 3 GM in SODIUM CHLORIDE 0.9% 100 ML IVPB STA (23:57)
[2021-03-11] MEDS ORDERED: SODIUM CHLORIDE 0.9% 500 ML 500 ML IV STA (23:57)
--- NOTE | 2021-03-12 00:28 | XR ---
EXAMINATION TYPE: XR chest 1V portable DATE OF EXAM: 03/11/2021 COMPARISON: 07/16/2020 HISTORY: Fever. Pain. TECHNIQUE: Single view FINDINGS: Heart and mediastinum are normal. Lungs are clear of infiltrate. There is right central musa ous catheter with tip in the superior vena cava. There is no pleural effusion. IMPRESSION: No active cardiopulmonary disease. No change.
[2021-03-12] MEDS ORDERED: MORPHINE SULFATE 4 MG/ML SYRINGE IV PRN (00:33)
[2021-03-12] MEDS ORDERED: NALOXONE 0.4 MG/ML 1 ML VIAL IV PRN (00:33)
[2021-03-12 00:37] LABS: Anisocytosis Slight; Basophils # (A) 0.1 k/uL (0-0.2); Basophils % (A) 0 %; Eosinophils # (A) 0.3 k/uL (0-0.7); Eosinophils % (A) 2 %; HCT 31.8 % (39.0-53.0); Hypochromasia Marked; Lymphocytes # (A) 0.8 k/uL (1.0-4.8); Lymphocytes % (A) 5 %; MCH 28.6 pg (25.0-35.0); MCHC 31.3 g/dL (31.0-37.0); MCV 91.4 fL (80.0-100.0); Mean Platelet Volume 8.6; Monocytes # (A) 1.2 k/uL (0-1.0); Monocytes % (A) 7 %; Neutrophils # (A) 15.2 k/uL (1.3-7.7); Neutrophils % (A) 85 %; Poikilocytosis Slight; RBC 3.48 m/uL (4.30-5.90); RDW 16.5 % (11.5-15.5); WBC 17.9 k/uL (3.8-10.6)
--- NOTE | 2021-03-12 00:38 | XR ---
EXAMINATION TYPE: XR KUB DATE OF EXAM: 03/12/2021 COMPARISON: NONE HISTORY: Infection pain TECHNIQUE: Single view FINDINGS: There is lumbar levoscoliosis. There is posterior rods and screws fusing the lumbar spine. There is laminectomy defect. There are no calcifications over the kidneys. There are some distended g as-filled loops of small bowel in the mid abdomen. Lung bases appear clear. There is no sign of free air. IMPRESSION: Distended small bowel could relate to some ileus or partial obstruction. No free air.
[2021-03-12 00:39] LABS: Platelet Count 171 k/uL (150-450)
[2021-03-12 00:48] LABS: ALT 12 U/L (4-49); AST 28 U/L (17-59); African American GFR (CKD) >90 (>60 ml/min/1.73 sqM); Albumin 2.8 g/dL (3.5-5.0); Alkaline Phosphatase 525 U/L (38-126); Anion Gap 5 mmol/L; Blood Urea Nitrogen 12 mg/dL (9-20); Calcium 10.7 mg/dL (8.4-10.2); Carbon Dioxide 32 mmol/L (22-30); Chloride 96 mmol/L (98-107); Glucose 128 mg/dL (74-99); LDH 285 U/L (313-618); Lipase <10 U/L (23-300); Non-African American GFR(CKD) >90 (>60 ml/min/1.73 sqM); Potassium 4.3 mmol/L (3.5-5.1); Sodium 133 mmol/L (137-145); Total Bilirubin 0.7 mg/dL (0.2-1.3); Total Protein 5.5 g/dL (6.3-8.2)
[2021-03-12 00:57] LABS: INR 1.2 (<1.2); Partial Thromboplastin Time 25.7 sec (22.0-30.0); Prothrombin Time 12.6 sec (9.0-12.0)
[2021-03-12] MEDS: SODIUM CHLORIDE 0.9% 1,000 ML IV SCH ×4 (01:09→21:09)
[2021-03-12 01:25] LABS: C Reactive Protein 19.9 mg/dL (<1.0)
[2021-03-12] MEDS ORDERED: DOCUSATE 100 MG CAP PO PRN (02:45)
[2021-03-12] MEDS ORDERED: ALPRAZolam 0.25 MG TAB PO PRN (02:45)
[2021-03-12] MEDS ORDERED: ONDANSETRON 4 MG TAB PO PRN (02:45)
[2021-03-12] MEDS ORDERED: polyethylene glycoL 3350 17 GM POWD.PACK PO PRN (02:45)
--- NOTE | 2021-03-12 03:00 | P.HPIM ---
History of Present Illness H&P Date: 03/12/21 Chief Complaint: fever, not feeling well overall 60 year old male with pancreatic cancer on chemotherapy patient comes in upon recommendation from his oncologist dr Johansen to be admitted for general evaluation of not feeling well and having fevers. patient reports one day history of fever and few day history of not feeling well with decrease appetite. he denies any URI symptoms , sore throat, cough, SOB, or chest pain , denies any abd pain or diarrhea, he has ostomy bag , and has positive well formed stool with no blood. no diarrhea, he denies any urinary symptoms, he denies any headache, changes in vision or hearing . patient denies any skin changes or rashes. he recently had revision of his colostomy due to obstruction (about 2 weeks ago , this is his 4th revision due to different reasons, like obstruction , prolapse) he is also on chemo therapy , last cycle was 3 weeks ago . patient is vaccinated against covid and denies any known sick contacts. in the ED he was found afebrile, but WBC elevated at 17.9. Hgb stable at 10. mild hyponatremia , other acute phase reactant or inflammatory enzymes were elevated like Alk Phos, LDH xrays of abd and chest , were overall unremarkable , abd xray was suggestive of component of ileus , however, at time of eval , patient has passed large amount of well formed stool , no bleeding no diarrhea Review of Systems Pertinent positives as noted in HPI. All other systems were reviewed and are negative Past Medical History Past Medical History: Cancer, Hyperlipidemia, Hypertension, Osteoarthritis (OA), Prostate Disorder Additional Past Medical History / Comment(s): BPH, arthritis, 07/2020 pancreatic cancer with mets to liver and lung - has colostomy, mediport for chemo w/ weekly tx. Multiple colostomy prolapses History of Any Multi-Drug Resistant Organisms: None Reported Past Surgical History: Appendectomy, Back Surgery, Bladder Surgery, Bowel Resection Additional Past Surgical History / Comment(s): Back surg x10, colonoscopy, colostomy 07/2020, liver biopsy, port placement,. colostomy revision 10/19/20, 12/12/20,02/27/21 Past Anesthesia/Blood Transfusion Reactions: Previous Problems w/ Anesthesia, Motion Sickness, Postoperative Nausea & Vomiting (PONV) Additional Past Anesthesia/Blood Transfusion Reaction / Comment(s): no hx blood transfusion;. "seems to take a long time to get out of my system" Past Psychological History: Anxiety Smoking Status: Former smoker Past Alcohol Use History: None Reported Past Drug Use History: None Reported - Past Family History Mother Family Medical History: No Reported History Medications and Allergies Home Medications Medication Instructions Recorded Confirmed Type Docusate [Colace] 100 mg PO TID PRN 09/24/20 02/22/21 History HYDROcodone/APAP 10-325MG [[place] 1 tab PO Q4HR PRN 09/24/20 02/22/21 History 10-325] HYDROmorphone [Dilaudid] 4 mg PO Q4H PRN 09/24/20 02/22/21 History Omeprazole 20 mg PO HS 09/24/20 02/22/21 History Prochlorperazine [Compazine] 10 mg PO BID PRN 09/24/20 02/22/21 History Propranolol HCl 80 mg PO BID 09/24/20 02/22/21 History Tamsulosin [Flomax] 0.4 mg PO QAM 09/24/20 02/22/21 History Morphine Sulfate [Ms Contin] 60 mg PO Q8H 10/10/20 02/22/21 History Benazepril HCl 20 mg PO QAM 10/15/20 02/22/21 History Lidocaine-Prilocaine Cream [Emla 1 applic TOPICAL DIRECTED PRN 10/15/20 02/22/21 History Cream 2.5%/2.5%] Meclizine HCl [Bonine] 25 mg PO BID PRN 10/15/20 02/22/21 History ondansetron HCL [Zofran] 8 mg PO Q8HR PRN 10/15/20 02/22/21 History ALPRAZolam [Xanax] 0.25 mg PO TID PRN 10/17/20 02/22/21 History polyethylene glycoL 3350 [Miralax] 17 gm PO DAILY PRN 02/22/21 02/22/21 History Allergies Allergy/AdvReac Type Severity Reaction Status Date / Time No Known Allergies Allergy Verified 03/11/21 22:54 Physical Exam Vitals: Vital Signs Temp Pulse Resp BP Pulse Ox 03/12/21 01:19 97.9 F 81 16 110/80 96 03/11/21 22:50 98.6 F 86 20 136/86 95 Intake and Output 03/11/21 03/11/21 03/12/21 14:59 22:59 06:59 Other: Weight 70.307 kg Constitutional: No acute distress, conversant, pleasant Eyes: Anicteric sclerae, moist conjunctiva, Pupils equal round reactive to light ENMT: NC/AT Oropharynx clear, no erythema, or exudates Neck: Supple, FROM, no masses, or JVD No carotid bruits No thyromegaly Lungs: Clear to auscultation Clear to percussion Normal respiratory effort, no accessory muscle use Cardiovascular: Heart regular in rate and rhythm, No murmurs, gallops, or rubs No peripheral edema Abdominal: Soft Nontender, no guarding, rebound or rigidity Abdomen moving with respiration Normoactive bowel sounds No hepatomegaly, No splenomegaly No palpable mass No abdominal wall hernia noted Skin: Normal temperature, tone, texture, turgor No induration No subcutaneous nodules No rash, lesions No ulcers Extremities: No digital cyanosis No clubbing Pedal pulses intact and symmetrical Radial pulses intact and symmetrical No calf tenderness Psychiatric: Alert and oriented to person, place and time Appropriate affect fair judgement Neuro Muscles Strength 5/5 in all 4 extremities Sensation to light touch grossly present throughout Cranial nerves II-XII grossly intact No focal sensory deficits Lymphatics: no palpable cervical or supraclavicular , or inguinal lymph nodes Results CBC & Chem 7: 03/11/21 23:56 03/11/21 23:56 Labs: Abnormal Lab Results - Last 24 Hours (Table) 03/11/21 03/11/21 03/11/21 Range/Units 23:56 23:56 23:56 WBC 17.9 H (3.8-10.6) k/uL RBC 3.48 L (4.30-5.90) m/uL Hgb 10.0 L (13.0-17.5) gm/dL Hct 31.8 L (39.0-53.0) % RDW 16.5 H (11.5-15.5) % Neutrophils # 15.2 H (1.3-7.7) k/uL Lymphocytes # 0.8 L (1.0-4.8) k/uL Monocytes # 1.2 H (0-1.0) k/uL PT 12.6 H (9.0-12.0) sec INR 1.2 H (<1.2) Sodium 133 L (137-145) mmol/L Chloride 96 L (98-107) mmol/L Carbon Dioxide 32 H (22-30) mmol/L Creatinine 0.51 L (0.66-1.25) mg/dL Glucose 128 H (74-99) mg/dL Calcium 10.7 H (8.4-10.2) mg/dL Alkaline Phosphatase 525 H (38-126) U/L Lactate Dehydrogenase 285 L (313-618) U/L C-Reactive Protein 19.9 H (<1.0) mg/dL Total Protein 5.5 L (6.3-8.2) g/dL Albumin 2.8 L (3.5-5.0) g/dL Lipase <10 L (23-300) U/L Assessment and Plan Assessment: reported fever, leukocytosis , no identifiable source of infection pancreatic cancer on chemo chronic anemia hypertension resume home meds BPH , resume home meds mild hyponatermia plan colostomy care recent revision of his colostomy 2 weeks ago ostomy exam unremarkable , colostomy is functional abd soft to exam no urinary or URI symptoms check blood culture check COVID (patient vaccinated) IVF hydration with normal saline , monitor Na level supportive care oncology consult resume homemeds patient denies GI bleeding monitor hemoglobin patient was given unasyn in the ED, will continue for now for any possible intra-abdominal source with recent ostomy revision Lovenox SC for DVT PPX PPI full code anticipated length of stay <2 midnights anticipated discharge home
[2021-03-12] MEDS: HYDROcodone/APAP 10-325MG 1 EACH TAB PO PRN ×2 (03:41→21:11)
[2021-03-12] MEDS: ENOXAPARIN 40 MG/0.4 ML SYRINGE SQ SCH (09:00)
[2021-03-12] MEDS ORDERED: PANTOPRAZOLE 40 MG/10 ML VIAL IV SCH (09:00)
[2021-03-12] MEDS: TAMSULOSIN 0.4 MG CAP.ER.24H PO SCH (09:00)
[2021-03-12] MEDS: AMPICILLIN-SULBACTAM 3 GM in SODIUM CHLORIDE 0.9% 100 ML IVPB SCH ×2 (09:00→17:35)
[2021-03-12] MEDS: PANTOPRAZOLE 40 MG TABLET PO SCH (09:00)
[2021-03-12] MEDS: lisinopriL 20 MG TAB PO SCH (09:00)
[2021-03-12] MEDS: PROPRANOLOL 40 MG TAB PO SCH ×2 (09:59→21:08)
--- NOTE | 2021-03-12 15:22 | P.PN ---
Subjective Progress Note Date: 03/12/21 Hospital course: Patient is a 60-year-old male with a past medical history of pancreatic cancer currently receiving chemotherapy and recurrent bowel obstructions resulting in colostomy placement. Patient recently underwent a colostomy revision 2 weeks ago and reports that over the past 5 days he has had constipation, decreased appetite, fevers, and overall just not feeling well. In the emergency department, KUB was completed revealing distended small bowel possibly relating to some ileus or partial obstruction. Chest x-ray negative for acute cardiopulmonary process. EKG normal sinus rhythm at 83 bpm. Patient was found to have leukocytosis with WBC count of 17.9 with left shift, hyponatremia with sodium 133, hypochloremia with chloride 96, elevated carbon dioxide 32 hypercalcemia with calcium 10.7 elevated alkaline phosphatase 525, elevated LDH 285, and CRP 19.9. Covid 19 PCR negative. Physical exam: Vital signs reviewed and stable. General: Nontoxic, no distress and appears stated age. Derm: Skin warm and dry, normal coloration for ethnicity. Head: Atraumatic, normocephalic and symmetric. Eyes: EOMs intact, no lid lag, and anicteric sclera Mouth: no lip lesions, mucus membranes moist Cardiovascular: regular rate and rhythm with normal S1S2, no murmur, positive posterior tibial pulses bilaterally, and cap refill < 2 seconds. Lungs: Respirations even, regular, and unlabored on room air. Lungs CTA bilaterally, no rhonchi, no rales, no wheezing, and no accessory muscle usage. Abdominal: soft, nontender to palpation, no guarding, no appreciable organomegaly. Ostomy in place, stoma pink showing no normality. Ext: ROM intact. No gross muscle atrophy, no edema, no contractures Neuro: Speech clear, face symmetrical and CN II-XII grossly intact with no noted focal neuro deficits Psych: Alert and oriented to person, place, time, and situation. Appropriate and pleasant affect. Assessment and Plan of Care: Subjective fever and Leukocytosis - KUB was completed revealing distended small bowel possibly relating to some ileus or partial obstruction. -Chest x-ray negative for acute cardiopulmonary process. -WBC count 17.9 and CRP 19.9. -Continue IV antibiotics Unasyn -Consult general surgery, Dr. Hays. -Blood cultures 2 sets -IV hydration -Symptomatic care and pain management, Tylenol as needed for fever and/or pain. -Continue close monitoring with repeat a.m. labs. Hyponatremia -Continue gentle hydration with IV fluids Status post recent revision of colostomy -KUB was completed revealing distended small bowel possibly relating to some ileus or partial obstruction. -Consult general surgery, Dr. Hays. -Colostomy care Pancreatic cancer -Continue to follow up with hematology/oncology outpatient as scheduled -Symptomatic care and pain management CODE STATUS: Full code DVT prophylaxis: Lovenox Discussed with: Patient and RN Anticipated discharge date: Clinical course to determine Anticipated discharge place: Home A total of 45 minutes was spent on the care of this complex patient more than 50% of the time was spent in counseling and care coordination. Objective - Vital Signs Vital signs: Vital Signs Temp 97.3 F L 03/12/21 06:42 Pulse 75 03/12/21 06:42 Resp 16 03/12/21 06:42 BP 104/75 03/12/21 06:42 Pulse Ox 99 03/12/21 06:42 Intake & Output 03/11/21 03/12/21 03/12/21 18:59 06:59 18:59 Weight 70.307 kg - Labs CBC & Chem 7: 03/11/21 23:56 03/11/21 23:56 Labs: Abnormal Lab Results - Last 24 Hours (Table) 03/11/21 03/11/21 03/11/21 Range/Units 23:56 23:56 23:56 WBC 17.9 H (3.8-10.6) k/uL RBC 3.48 L (4.30-5.90) m/uL Hgb 10.0 L (13.0-17.5) gm/dL Hct 31.8 L (39.0-53.0) % RDW 16.5 H (11.5-15.5) % Neutrophils # 15.2 H (1.3-7.7) k/uL Lymphocytes # 0.8 L (1.0-4.8) k/uL Monocytes # 1.2 H (0-1.0) k/uL PT 12.6 H (9.0-12.0) sec INR 1.2 H (<1.2) Sodium 133 L (137-145) mmol/L Chloride 96 L (98-107) mmol/L Carbon Dioxide 32 H (22-30) mmol/L Creatinine 0.51 L (0.66-1.25) mg/dL Glucose 128 H (74-99) mg/dL Calcium 10.7 H (8.4-10.2) mg/dL Alkaline Phosphatase 525 H (38-126) U/L Lactate Dehydrogenase 285 L (313-618) U/L C-Reactive Protein 19.9 H (<1.0) mg/dL Total Protein 5.5 L (6.3-8.2) g/dL Albumin 2.8 L (3.5-5.0) g/dL Lipase <10 L (23-300) U/L
[2021-03-12] MEDS: HYDROmorphone 2 MG TAB PO PRN (17:58)
[2021-03-12] MEDS: ONDANSETRON 4 MG/2 ML VIAL IVP PRN (19:24)
--- NOTE | 2021-03-12 20:20 | P.CONS ---
History of Present Illness - Reason for Consult Consult date: 03/12/21 Nausea and Vomiting and Dehydration, Pancreatic Cancer Requesting physician: Ranjit Oliveros - Chief Complaint nausea - History of Present Illness Mr. Schmitt is a patient of Dr. Guzman for treatment of pancreatic cancer, on gemzar and abraxane. This has been on hold for the past few weeks due to nausea and vomiting. He statesd he has been feeling better off treatment until the past couple nights when he felt unwell and took his temp and read 102F, therefore he presented to er for further evaluation. Review of Systems All systems: negative Constitutional: Reports as per HPI Past Medical History Past Medical History: Cancer, Hyperlipidemia, Hypertension, Osteoarthritis (OA), Prostate Disorder Additional Past Medical History / Comment(s): BPH, arthritis, 07/2020 pancreatic cancer with mets to liver and lung - has colostomy, mediport for chemo w/ weekly tx. Multiple colostomy prolapses History of Any Multi-Drug Resistant Organisms: None Reported Past Surgical History: Appendectomy, Back Surgery, Bladder Surgery, Bowel Resection Additional Past Surgical History / Comment(s): Back surg x10, colonoscopy, colostomy 07/2020, liver biopsy, port placement,. colostomy revision 10/19/20, 12/12/20,02/27/21 Past Anesthesia/Blood Transfusion Reactions: Previous Problems w/ Anesthesia, Motion Sickness, Postoperative Nausea & Vomiting (PONV) Additional Past Anesthesia/Blood Transfusion Reaction / Comm: no hx blood transfusion;. "seems to take a long time to get out of my system" Past Psychological History: Anxiety Smoking Status: Former smoker Past Alcohol Use History: None Reported Additional Past Alcohol Use History / Comment(s): Smoked 30 years, 1 ppd, quit 2015 Past Drug Use History: None Reported Additional Drug Use History / Comment(s): occ use - Past Family History Mother Family Medical History: No Reported History Medications and Allergies Home Medications Medication Instructions Recorded Confirmed Type Docusate [Colace] 100 mg PO TID 09/24/20 03/12/21 History HYDROcodone/APAP 10-325MG [[place] 1 tab PO Q4HR PRN 09/24/20 03/12/21 History 10-325] HYDROmorphone [Dilaudid] 4 mg PO Q4H PRN 09/24/20 03/12/21 History Omeprazole 20 mg PO HS 09/24/20 03/12/21 History Prochlorperazine [Compazine] 10 mg PO Q8H PRN 09/24/20 03/12/21 History Propranolol HCl 80 mg PO BID 09/24/20 03/12/21 History Tamsulosin [Flomax] 0.4 mg PO QAM 09/24/20 03/12/21 History Morphine Sulfate [Ms Contin] 60 mg PO Q8H 10/10/20 03/12/21 History Benazepril HCl 20 mg PO QAM 10/15/20 03/12/21 History Lidocaine-Prilocaine Cream [Emla 1 applic TOPICAL DIRECTED PRN 10/15/20 03/12/21 History Cream 2.5%/2.5%] Meclizine HCl [Bonine] 25 mg PO TID PRN 10/15/20 03/12/21 History ondansetron HCL [Zofran] 8 mg PO Q8HR PRN 10/15/20 03/12/21 History ALPRAZolam [Xanax] 0.25 mg PO TID PRN 10/17/20 03/12/21 History polyethylene glycoL 3350 [Miralax] 17 gm PO DAILY PRN 02/22/21 03/12/21 History Allergies Allergy/AdvReac Type Severity Reaction Status Date / Time No Known Allergies Allergy Verified 03/12/21 07:33 Physical Exam Vitals: Vital Signs Temp Pulse Pulse Pulse Resp BP BP 03/12/21 19:10 99.3 F 87 20 116/73 03/12/21 17:42 81 18 03/12/21 16:23 98.2 F 81 18 102/67 03/12/21 15:48 98.5 F 81 18 100/61 03/12/21 14:00 76 18 106/72 03/12/21 09:00 16 03/12/21 08:42 98.2 F 81 18 102/67 03/12/21 08:00 16 03/12/21 06:42 97.3 F L 75 16 104/75 03/12/21 03:40 78 18 106/78 03/12/21 01:19 97.9 F 81 16 110/80 03/11/21 22:50 98.6 F 86 20 136/86 Pulse Ox 03/12/21 19:10 90 L 03/12/21 17:42 03/12/21 16:23 93 L 03/12/21 15:48 96 03/12/21 14:00 99 03/12/21 09:00 03/12/21 08:42 93 L 03/12/21 08:00 03/12/21 06:42 99 03/12/21 03:40 97 03/12/21 01:19 96 03/11/21 22:50 95 Intake and Output 03/12/21 03/12/21 03/12/21 06:59 14:59 22:59 Other: Voiding Method Toilet Weight 70.307 kg - Constitutional General appearance: cooperative, no acute distress - EENT Eyes: EOMI, PERRLA ENT: hard of hearing, NA/AT - Respiratory Respiratory: bilateral: CTA - Cardiovascular Rhythm: regular - Gastrointestinal Ostomy with stool output General gastrointestinal: soft, tenderness - Integumentary Integumentary: pale - Neurologic Neurologic: CNII-XII intact - Musculoskeletal Musculoskeletal: generalized weakness - Psychiatric Psychiatric: A&O x's 3, appropriate affect, intact judgment & insight Results CBC & Chem 7: 03/13/21 07:11 03/13/21 07:11 Labs: Abnormal Lab Results - Last 24 Hours (Table) 03/11/21 03/11/21 03/11/21 Range/Units 23:56 23:56 23:56 WBC 17.9 H (3.8-10.6) k/uL RBC 3.48 L (4.30-5.90) m/uL Hgb 10.0 L (13.0-17.5) gm/dL Hct 31.8 L (39.0-53.0) % RDW 16.5 H (11.5-15.5) % Neutrophils # 15.2 H (1.3-7.7) k/uL Lymphocytes # 0.8 L (1.0-4.8) k/uL Monocytes # 1.2 H (0-1.0) k/uL PT 12.6 H (9.0-12.0) sec INR 1.2 H (<1.2) Sodium 133 L (137-145) mmol/L Chloride 96 L (98-107) mmol/L Carbon Dioxide 32 H (22-30) mmol/L Creatinine 0.51 L (0.66-1.25) mg/dL Glucose 128 H (74-99) mg/dL Calcium 10.7 H (8.4-10.2) mg/dL Alkaline Phosphatase 525 H (38-126) U/L Lactate Dehydrogenase 285 L (313-618) U/L C-Reactive Protein 19.9 H (<1.0) mg/dL Total Protein 5.5 L (6.3-8.2) g/dL Albumin 2.8 L (3.5-5.0) g/dL Lipase <10 L (23-300) U/L Chest x-ray: report reviewed Abdominal x-ray: report reviewed Assessment and Plan (1) Pancreatic cancer Current Visit: Yes Status: Acute Code(s): C25.9 - MALIGNANT NEOPLASM OF PANCREAS, UNSPECIFIED SNOMED Code(s): 499566622 (2) Ileus Current Visit: Yes Status: Acute Code(s): K56.7 - ILEUS, UNSPECIFIED SNOMED Code(s): 394986384 (3) Leukocytosis Current Visit: Yes Status: Acute Code(s): D72.829 - ELEVATED WHITE BLOOD CELL COUNT, UNSPECIFIED SNOMED Code(s): 113945351 Plan: Review of Abdominal Xray, possible ileus. Ostomy with output, no free air. Infectious work-up in progress Afebrile since admission Chemo has been on hold for past 3 weeks status post ostomy revision. Physician Attest: I have completed the full history and physical and agree with above dictation, dictated as a scribe
[2021-03-13] MEDS: AMPICILLIN-SULBACTAM 3 GM in SODIUM CHLORIDE 0.9% 100 ML IVPB SCH ×4 (00:19→23:14)
[2021-03-13] MEDS: HYDROcodone/APAP 10-325MG 1 EACH TAB PO PRN ×2 (05:22→19:24)
[2021-03-13 07:40] LABS: Basophils % (A) 0 %; Eosinophils # (A) 0.4 k/uL (0-0.7); Eosinophils % (A) 3 %; HCT 29.1 % (39.0-53.0); HGB 9.1 gm/dL (13.0-17.5); Hypochromasia Marked; Lymphocytes # (A) 0.5 k/uL (1.0-4.8); Lymphocytes % (A) 5 %; MCH 28.9 pg (25.0-35.0); MCHC 31.2 g/dL (31.0-37.0); MCV 92.7 fL (80.0-100.0); Mean Platelet Volume 8.7; Monocytes # (A) 0.9 k/uL (0-1.0); Monocytes % (A) 8 %; Neutrophils # (A) 9.3 k/uL (1.3-7.7); Neutrophils % (A) 83 %; Platelet Count 145 k/uL (150-450); Poikilocytosis Slight; RBC 3.14 m/uL (4.30-5.90); WBC 11.3 k/uL (3.8-10.6)
[2021-03-13] MEDS: ENOXAPARIN 40 MG/0.4 ML SYRINGE SQ SCH (07:52)
[2021-03-13] MEDS: PANTOPRAZOLE 40 MG TABLET PO SCH (07:52)
[2021-03-13] MEDS: PROPRANOLOL 40 MG TAB PO SCH ×2 (07:52→21:49)
[2021-03-13] MEDS: lisinopriL 20 MG TAB PO SCH (07:53)
[2021-03-13] MEDS: TAMSULOSIN 0.4 MG CAP.ER.24H PO SCH (07:53)
[2021-03-13] MEDS ORDERED: IOPAMIDOL CONTRAST (ORAL USE) VIAL PO PRN (09:11)
--- NOTE | 2021-03-13 09:34 | P.PN ---
Subjective Progress Note Date: 03/13/21 Principal diagnosis: Persistent nausea and vomiting Patient still with nausea, vomiting and feeling not well, three weeks off chemo. 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 He refuses po contrast Objective - Vital Signs Vital signs: Vital Signs Temp 98.8 F 03/13/21 04:23 Pulse 85 03/13/21 04:23 Resp 20 03/13/21 04:23 BP 131/77 03/13/21 04:23 Pulse Ox 95 03/13/21 04:23 Intake & Output 03/12/21 03/13/21 03/13/21 18:59 06:59 18:59 Intake Total 1530 Balance 1530 Weight 70.307 kg Intake: Intake, IV Titration 1530 Amount Ampicillin-Sulbactam 3 gm 100 In Sodium Chloride 0.9% 100 ml @ 200 mls/hr IVPB Q8HR [facility] Rx#:[id number] Sodium Chloride 0.9% 1, 1430 000 ml @ 130 mls/hr IV . Q7H42M [facility] Rx#:[id number] Other: Voiding Method Toilet Toilet - Exam - Constitutional General appearance: cooperative, no acute distress - EENT Eyes: EOMI, PERRLA ENT: hard of hearing, NA/AT - Respiratory Respiratory: bilateral: CTA - Cardiovascular Rhythm: regular - Gastrointestinal Ostomy with stool output General gastrointestinal: soft, tenderness - Integumentary Integumentary: pale - Neurologic Neurologic: CNII-XII intact - Musculoskeletal Musculoskeletal: generalized weakness - Psychiatric Psychiatric: A&O x's 3, appropriate affect, intact judgment & insight - Labs CBC & Chem 7: 03/13/21 07:11 03/13/21 07:11 Labs: Abnormal Lab Results - Last 24 Hours (Table) 03/13/21 Range/Units 07:11 WBC 11.3 H (3.8-10.6) k/uL RBC 3.14 L (4.30-5.90) m/uL Hgb 9.1 L (13.0-17.5) gm/dL Hct 29.1 L (39.0-53.0) % RDW 16.0 H (11.5-15.5) % Plt Count 145 L (150-450) k/uL Neutrophils # 9.3 H (1.3-7.7) k/uL Lymphocytes # 0.5 L (1.0-4.8) k/uL Microbiology - Last 24 Hours (Table) 03/12/21 00:01 Blood Culture - Preliminary Blood No Growth after 24 hours 03/12/21 23:45 Blood Culture - Preliminary Blood No Growth after 24 hours Assessment and Plan (1) Pancreatic cancer Current Visit: Yes Status: Acute Code(s): C25.9 - MALIGNANT NEOPLASM OF PANCREAS, UNSPECIFIED SNOMED Code(s): 393207742 (2) Ileus Current Visit: Yes Status: Acute Code(s): K56.7 - ILEUS, UNSPECIFIED SNOMED Code(s): 456117933 (3) Leukocytosis Current Visit: Yes Status: Acute Code(s): D72.829 - ELEVATED WHITE BLOOD CELL COUNT, UNSPECIFIED SNOMED Code(s): 151135431 Plan: Review of Abdominal Xray, possible ileus. Ostomy with output, no free air. Infectious work-up in progress Afebrile since admission Chemo has been on hold for past 3 weeks status post ostomy revision. CT Abdomen and Pelvis with Contrast to further evaluate for progression versus obstruction. Ca 19-9 today
[2021-03-13] MEDS: HYDROmorphone 2 MG TAB PO PRN (10:00)
[2021-03-13] MEDS: SODIUM CHLORIDE 0.9% 1,000 ML IV SCH ×2 (10:00→15:52)
--- NOTE | 2021-03-13 11:32 | CT ---
EXAMINATION TYPE: CT abdomen pelvis w con DATE OF EXAM: 03/13/2021 COMPARISON: 10/15/2020 INDICATION: Abdominal pain, fever, pancreatic cancer DLP: 1080 mGycm, Automated exposure control for dose reduction was used. CONTRAST: 100 mL of Isovue 300. Study performed without Oral Contrast TECHNIQUE: Axial images were obtained from above the diaphragm to the pubic rami in the axial plane a t 5 mm thick sections. Reconstructed images are reviewed on the computer in the coronal plane. FINDINGS: Limited CT sections are obtained the lung bases. There is a new irregular mass measuring 2.7 x 1.4 c m in the posterior medial right lung base. Series 3 image 10. Lung bases otherwise appear clear.1 CT ABDOMEN:Colostomy is in the left midabdomen. Liver: There is extensive hepatic density changes throughout the liver greater in the right lower lob e suspicious for irregular ill-defined masses, likely metastases. Some biliary dilatation may be supe rimposed. Ascites is adjacent to the liver. Spleen: Normal Pancreas: There is interval development of a hypodense lesion measuring 4.5 x 3.5 cm at the junction of the body and tail of the pancreas. The distal tail of the pancreas has pancreatic duct dilatation. Head of the pancreas is poorly visualized. Findings can be compatible with the patient's reported pa ncreatic cancer. Adrenal glands: The adrenal glands are normal. Gallbladder: Normal Kidneys: No masses are evident. No hydronephrosis is present. No cysts are present. Delayed images were obtained through the kidneys, which remain unremarkable. Aorta: Vascular calcification is within the aorta. Inferior vena cava: Normal. CT PELVIS: Ascites is present. There is been a hemicolectomy. Rectosigmoid stump appears unremarkable. This study is performed witho ut oral contrast limiting evaluation. No suspicious dilated small bowel loops are. Appendix: Not visualized Urinary bladder: Normal. Some diffuse mild wall thickening is not excluded. Consider cholecystitis. Genitourinary structures: Prostate contains calcification. Osseous structures: There may be a well-defined lytic lesion within the inferior lateral left pubic r amus. Series 3 image 78. This measures 1.3 cm and was present previously and is stable. Previous scle rotic area within the posterior medial right iliac wing is less defined on the current examination. S eries 3 image 52. The previous iliac crest lytic lesion measures 2.4 cm appears more defined on the c urrent exam. There is lytic sclerotic area adjacent to the sacroiliac joint on the right, series 3 im age 49 is less dense than previous exam. Postsurgical change to the scoliotic lumbar spine. There may be some sclerotic lesions within the T12 and T11 vertebral bodies. IMPRESSIONS: 1. Interval development of a hypodense lesion within the pancreas at 5 and tail junction with develo ping pancreatic duct dilatation of the tail. Mass and pseudocyst formation be considered. 2. Interval increase of ill-defined masslike areas within the liver suspicious for metastatic disease . Some mild superimposed biliary dilatation is likely present. 3. Pelvic osseous abnormalities may be involuting metastatic lesions. 4. Post colonic surgery changes. 5. Ascites. 6. New mass within the posterior medial right lung base. Consider repeat CT chest to evaluate for met astatic disease. A Yellow level critical message alert has been initiated for Rui De Jesus MD via the [employer] on 03/13/2021 11:29 AM. This message alert has been sent to Rui De Jesus MD via e preferences provided by the clinician for the receipt of Radiology Critical Findings. Message ID [id number].
[2021-03-13 11:57] VITALS: BMI 20.9
[2021-03-13 13:53] LABS: African American GFR (CKD) 138.4 (60.0-200.0); Albumin 2.6 g/dL (3.80-4.90); Albumin/Globulin Ratio 1.3 (1.60-3.17); Calcium 9.9 mg/dL (8.7-10.3); Magnesium 1.8 mg/dL (1.5-2.4); Non-African American GFR(CKD) 119.5 (60.0-200.0); Phosphorus 2.3 mg/dL (2.4-5.1); Potassium 4.4 mmol/L (3.5-5.5); Total Bilirubin 0.5 mg/dL (0.2-1.2); Total Protein 4.6 g/dL (6.2-8.2)
--- NOTE | 2021-03-13 14:01 | P.PN ---
Subjective Progress Note Date: 03/13/21 Principal diagnosis: Hospital course: Patient is a 60-year-old male with a past medical history of pancreatic cancer currently receiving chemotherapy and recurrent bowel obstructions resulting in colostomy placement. Patient recently underwent a colostomy revision 2 weeks ago and reports that over the past 5 days he has had constipation, decreased appetite, fevers, and overall just not feeling well. In the emergency department, KUB was completed revealing distended small bowel possibly relating to some ileus or partial obstruction. Chest x-ray negative for acute cardiopulmonary process. EKG normal sinus rhythm at 83 bpm. Patient was found to have leukocytosis with WBC count of 17.9 with left shift, hyponatremia with sodium 133, hypochloremia with chloride 96, elevated carbon dioxide 32 hypercalcemia with calcium 10.7 elevated alkaline phosphatase 525, elevated LDH 285, and CRP 19.9. Covid 19 PCR negative. Subjective: Patient feels okay today, no chest pain no abdominal pain no nausea no vomiting no dizziness. Remains afebrile. Objective - Vital Signs Vital signs: Vital Signs Temp 97.9 F 03/13/21 12:16 Pulse 84 03/13/21 12:16 Resp 17 03/13/21 12:16 BP 142/87 03/13/21 12:16 Pulse Ox 97 03/13/21 12:16 Intake & Output 03/12/21 03/13/21 03/13/21 18:59 06:59 18:59 Intake Total 1530 Balance 1530 Weight 70.307 kg 70.307 kg Intake: Intake, IV Titration 1530 Amount Ampicillin-Sulbactam 3 gm 100 In Sodium Chloride 0.9% 100 ml @ 200 mls/hr IVPB Q8HR [facility] Rx#:[id number] Sodium Chloride 0.9% 1, 1430 000 ml @ 130 mls/hr IV . Q7H42M [facility] Rx#:[id number] Other: Voiding Method Toilet Toilet - Exam General: Nontoxic, no distress and appears stated age. Derm: Skin warm and dry Head: Atraumatic, normocephalic and symmetric. Eyes: EOMs intact, no lid lag, and anicteric sclera Mouth: no lip lesions, mucus membranes moist Cardiovascular: regular rate and rhythm with normal S1S2, no murmur, positive posterior tibial pulses bilaterally, and cap refill < 2 seconds. Lungs: Respirations even, regular, and unlabored on room air. Lungs CTA bilaterally, no rhonchi, no rales, no wheezing, and no accessory muscle usage. Abdominal: soft, nontender to palpation, no guarding, no appreciable organomegaly. Ostomy in place, stoma pink showing no normality. Ext: ROM intact. No gross muscle atrophy, no edema, no contractures Neuro: Speech clear, face symmetrical and CN II-XII grossly intact with no noted focal neuro deficits Psych: Alert and oriented to person, place, time, and situation. - Labs CBC & Chem 7: 03/13/21 07:11 03/11/21 23:56 Labs: Abnormal Lab Results - Last 24 Hours (Table) 03/13/21 Range/Units 07:11 WBC 11.3 H (3.8-10.6) k/uL RBC 3.14 L (4.30-5.90) m/uL Hgb 9.1 L (13.0-17.5) gm/dL Hct 29.1 L (39.0-53.0) % RDW 16.0 H (11.5-15.5) % Plt Count 145 L (150-450) k/uL Neutrophils # 9.3 H (1.3-7.7) k/uL Lymphocytes # 0.5 L (1.0-4.8) k/uL Microbiology - Last 24 Hours (Table) 03/12/21 00:01 Blood Culture - Preliminary Blood No Growth after 24 hours 03/12/21 23:45 Blood Culture - Preliminary Blood No Growth after 24 hours Assessment and Plan Plan: Subjective fever and Leukocytosis - KUB was completed revealing distended small bowel possibly relating to some ileus or partial obstruction. -Chest x-ray negative for acute cardiopulmonary process. -WBC count 17.9 and CRP 19.9 upon admission, improved down to 11,000. -Continue IV antibiotics Unasyn -Consult general surgery, Dr. Hays. -Blood cultures 2 sets -IV fluids CT abd hypodense lesion within the pancreas at 5. Junction with developing pain getting duct dilatation of the tail. Mass pudo cyst formation be considered. Appreciate input from oncology Hyponatremia -Resolved with IV fluids Status post recent revision of colostomy -KUB was completed revealing distended small bowel possibly relating to some ileus or partial obstruction. -Consult general surgery, Dr. Hays. -Colostomy care Pancreatic cancer -Continue to follow up with hematology/oncology outpatient as scheduled -Symptomatic care and pain management Abdominal CT as above Hypomagnesemia: Likely associated with hypovolemia and with malignancy Calcium 10.7 upon admission, improved to 9.9 with IV fluids. CODE STATUS: Full code DVT prophylaxis: Lovenox Discussed with: Patient and RN Disposition: Pending clinical progression, home in 1-2 days
--- NOTE | 2021-03-13 15:15 | P.GSCN ---
History of Present Illness Consult date: 03/13/21 History of present illness: CHIEF COMPLAINT: Fever Reason for consult ileus versus small bowel obstruction HISTORY OF PRESENT ILLNESS: This is a 60-year-old male with past medical history of pancreatic cancer currently receiving chemotherapy. Patient has had prior history of bowel obstructions resulting in colostomy placement. Patient has had issues with a prolapsed colostomy requiring revision of the colostomy. Patient had surgery about 2 weeks ago for a prolapse of colostomy he had partial colectomy and partial omentectomy on 02/27/[address] wong. Patient presents to the hospital due to fever. Apparently his chemo was on hold due to nausea and vomiting. He had a KUB x-ray that showed ileus versus partial small bowel obstruction. Surgical service was therefore counseled regarding ileus versus partial small bowel obstruction. Patient is having output through his ostomy. He currently denies any nausea or vomiting. He is tolerating diet. And is currently afebrile. He had a computed tomography scan of the abdomen and pelvis that showed interval development of a hypodense lesion within the pancreas at 5 and tail junction with developing pancreatic duct dilation of the tail. Mass and pseudocyst formation should be considered. Interval increase of ill-defined masslike areas of the liver suspicious for metastatic disease. Some mild superimposed biliary dilation is likely present. Pelvic osseous abnormalities may be involuting metastatic lesions. Ascites. New masses in the posterior medial right lung base. Patient is currently sitting up in bed comfortably. Patient is seen and examined with Dr. wong PAST MEDICAL HISTORY: See list. PAST SURGICAL HISTORY: See list. MEDICATIONS: See list. ALLERGIES: See list. SOCIAL HISTORY: No illicit drug use. REVIEW OF SYSTEMS: CONSTITUTIONAL: Denies fever or chills. HEENT: Denies blurred vision, vision changes, or eye pain. Denies hemoptysis CARDIOVASCULAR: Denies chest pain or pressure. RESPIRATORY: No shortness of breath. GASTROINTESTINAL: See HPI for pertinent findings HEMATOLOGIC: Denies bleeding disorders. GENITOURINARY: Denies any blood in urine or increased urinary frequency. SKIN: Denies pruitis. Denies rash. PHYSICAL EXAM: VITAL SIGNS: Reviewed GENERAL: Well-developed in no acute distress. HEENT: No sclera icterus. Extraocular movements grossly intact. Moist buccal mucosa. Head is atraumatic, normocephalic. No nasal drainage. ABDOMEN: Soft. Nondistended. Ostomy is functioning NEUROLOGIC: Alert and oriented. Cranial nerves II through XII grossly intact. LABORATORY DATA: WBC 17.9 and 11.3 hemoglobin 9.1 platelets 145 sodium 139 potassium is 4.4 creatinine 0.5 LFTs normal alk phos 499 CRP 19.9 lipase less than 10 Covid not detected IMAGING: Computed tomography scan findings as stated above ASSESSMENT: 1. History of pancreatic cancer 2. Fever 3. Ileus noted on KUB x-ray. Computed tomography scan finding shows no mairsol dence of ileus or bowel obstruction. Patient reports that his ostomy is functioning. Patient may have had a resolving ileus. 4. Prior prolapse of colostomy with recent partial colectomy 2 weeks ago. No evidence of prolapse at this time PLAN: -No surgical intervention planned -Continue supportive care -Continue oncology workup Thank you for this consultation Physician Clinical Research Coordinator note has been reviewed by physician. Signing provider agrees with the documented findings, assessment, and plan of care. Past Medical History Past Medical History: Cancer, Hyperlipidemia, Hypertension, Osteoarthritis (OA), Prostate Disorder Additional Past Medical History / Comment(s): BPH, arthritis, 07/2020 pancreatic cancer with mets to liver and lung - has colostomy, mediport for chemo w/ weekly tx. Multiple colostomy prolapses History of Any Multi-Drug Resistant Organisms: None Reported Past Surgical History: Appendectomy, Back Surgery, Bladder Surgery, Bowel Resection Additional Past Surgical History / Comment(s): Back surg x10, colonoscopy, colostomy 07/2020, liver biopsy, port placement,. colostomy revision 10/19/20, 12/12/20,02/27/21 Past Anesthesia/Blood Transfusion Reactions: Previous Problems w/ Anesthesia, Motion Sickness, Postoperative Nausea & Vomiting (PONV) Additional Past Anesthesia/Blood Transfusion Reaction / Comm: no hx blood transfusion;. "seems to take a long time to get out of my system" Past Psychological History: Anxiety Smoking Status: Former smoker Past Alcohol Use History: None Reported Additional Past Alcohol Use History / Comment(s): Smoked 30 years, 1 ppd, quit 2015 Past Drug Use History: None Reported Additional Drug Use History / Comment(s): occ use - Past Family History Mother Family Medical History: No Reported History Medications and Allergies Home Medications Medication Instructions Recorded Confirmed Type Docusate [Colace] 100 mg PO TID 09/24/20 03/12/21 History HYDROcodone/APAP 10-325MG [[place] 1 tab PO Q4HR PRN 09/24/20 03/12/21 History 10-325] HYDROmorphone [Dilaudid] 4 mg PO Q4H PRN 09/24/20 03/12/21 History Omeprazole 20 mg PO HS 09/24/20 03/12/21 History Prochlorperazine [Compazine] 10 mg PO Q8H PRN 09/24/20 03/12/21 History Propranolol HCl 80 mg PO BID 09/24/20 03/12/21 History Tamsulosin [Flomax] 0.4 mg PO QAM 09/24/20 03/12/21 History Morphine Sulfate [Ms Contin] 60 mg PO Q8H 10/10/20 03/12/21 History Benazepril HCl 20 mg PO QAM 10/15/20 03/12/21 History Lidocaine-Prilocaine Cream [[place] 1 applic TOPICAL DIRECTED PRN 10/15/20 03/12/21 History Cream 2.5%/2.5%] Meclizine HCl [Bonine] 25 mg PO TID PRN 10/15/20 03/12/21 History ondansetron HCL [Zofran] 8 mg PO Q8HR PRN 10/15/20 03/12/21 History ALPRAZolam [Xanax] 0.25 mg PO TID PRN 10/17/20 03/12/21 History polyethylene glycoL 3350 [Miralax] 17 gm PO DAILY PRN 02/22/21 03/12/21 History Allergies Allergy/AdvReac Type Severity Reaction Status Date / Time No Known Allergies Allergy Verified 03/12/21 07:33 Surgical - Exam Vital Signs Temp Pulse Resp BP Pulse Ox 98.6 F 86 20 136/86 95 03/11/21 22:50 03/11/21 22:50 03/11/21 22:50 03/11/21 22:50 03/11/21 22:50 Results - Labs 03/13/21 07:11 03/13/21 07:11 Abnormal Lab Results - Last 24 Hours (Table) 03/13/21 03/13/21 Range/Units 07:11 07:11 WBC 11.3 H (3.8-10.6) k/uL RBC 3.14 L (4.30-5.90) m/uL Hgb 9.1 L (13.0-17.5) gm/dL Hct 29.1 L (39.0-53.0) % RDW 16.0 H (11.5-15.5) % Plt Count 145 L (150-450) k/uL Neutrophils # 9.3 H (1.3-7.7) k/uL Lymphocytes # 0.5 L (1.0-4.8) k/uL Creatinine 0.5 L (0.6-1.5) mg/dL BUN/Creatinine Ratio 24.00 H (12.00-20.00) Ratio Phosphorus 2.3 L (2.4-5.1) mg/dL Alkaline Phosphatase 499 H (41-126) U/L Total Protein 4.6 L (6.2-8.2) g/dL Albumin 2.60 L (3.80-4.90) g/dL Albumin/Globulin Ratio 1.30 L (1.60-3.17) g/dL Microbiology - Last 24 Hours (Table) 03/12/21 00:01 Blood Culture - Preliminary Blood No Growth after 24 hours 03/12/21 23:45 Blood Culture - Preliminary Blood No Growth after 24 hours Diabetes panel 03/13/21 Range/Units 07:11 Sodium 139 (135-145) mmol/L Potassium 4.4 (3.5-5.5) mmol/L Chloride 104 (96-109) mmol/L Carbon Dioxide 27.0 (21.6-31.8) mmol/L BUN 12.0 (9.0-27.0) mg/dL Creatinine 0.5 L (0.6-1.5) mg/dL Glucose 96 (70-110) mg/dL Calcium 9.9 (8.7-10.3) mg/dL AST 30 (14-35) U/L ALT 11 (10-49) U/L Alkaline Phosphatase 499 H (41-126) U/L Total Protein 4.6 L (6.2-8.2) g/dL Albumin 2.60 L (3.80-4.90) g/dL Calcium panel 03/13/21 Range/Units 07:11 Calcium 9.9 (8.7-10.3) mg/dL Phosphorus 2.3 L (2.4-5.1) mg/dL Albumin 2.60 L (3.80-4.90) g/dL Pituitary panel 03/13/21 Range/Units 07:11 Sodium 139 (135-145) mmol/L Potassium 4.4 (3.5-5.5) mmol/L Chloride 104 (96-109) mmol/L Carbon Dioxide 27.0 (21.6-31.8) mmol/L BUN 12.0 (9.0-27.0) mg/dL Creatinine 0.5 L (0.6-1.5) mg/dL Glucose 96 (70-110) mg/dL Calcium 9.9 (8.7-10.3) mg/dL Adrenal panel 03/13/21 Range/Units 07:11 Sodium 139 (135-145) mmol/L Potassium 4.4 (3.5-5.5) mmol/L Chloride 104 (96-109) mmol/L Carbon Dioxide 27.0 (21.6-31.8) mmol/L BUN 12.0 (9.0-27.0) mg/dL Creatinine 0.5 L (0.6-1.5) mg/dL Glucose 96 (70-110) mg/dL Calcium 9.9 (8.7-10.3) mg/dL Total Bilirubin 0.5 (0.2-1.2) mg/dL AST 30 (14-35) U/L ALT 11 (10-49) U/L Alkaline Phosphatase 499 H (41-126) U/L Total Protein 4.6 L (6.2-8.2) g/dL Albumin 2.60 L (3.80-4.90) g/dL
[2021-03-13] MEDS: ONDANSETRON 4 MG/2 ML VIAL IVP PRN (16:05)
[2021-03-14] MEDS: SODIUM CHLORIDE 0.9% 1,000 ML IV SCH ×4 (01:49→20:12)
[2021-03-14 05:59] LABS: Anisocytosis Slight; Basophils % (A) 0 %; Eosinophils # (A) 0.4 k/uL (0-0.7); Eosinophils % (A) 3 %; HCT 28.6 % (39.0-53.0); HGB 8.8 gm/dL (13.0-17.5); Hypochromasia Marked; Lymphocytes # (A) 0.6 k/uL (1.0-4.8); Lymphocytes % (A) 5 %; MCHC 30.9 g/dL (31.0-37.0); Mean Platelet Volume 8.6; Monocytes # (A) 0.8 k/uL (0-1.0); Monocytes % (A) 7 %; Neutrophils # (A) 9.9 k/uL (1.3-7.7); Neutrophils % (A) 83 %; Platelet Count 140 k/uL (150-450); Poikilocytosis Slight; RBC 3.05 m/uL (4.30-5.90); WBC 11.9 k/uL (3.8-10.6)
[2021-03-14] MEDS: HYDROmorphone 2 MG TAB PO PRN (07:54)
[2021-03-14] MEDS: PANTOPRAZOLE 40 MG TABLET PO SCH (08:17)
[2021-03-14] MEDS: AMPICILLIN-SULBACTAM 3 GM in SODIUM CHLORIDE 0.9% 100 ML IVPB SCH ×3 (08:19→23:45)
[2021-03-14] MEDS: lisinopriL 20 MG TAB PO SCH (08:22)
[2021-03-14] MEDS: TAMSULOSIN 0.4 MG CAP.ER.24H PO SCH (08:23)
[2021-03-14] MEDS: PROPRANOLOL 40 MG TAB PO SCH ×2 (08:23→20:12)
[2021-03-14 10:07] LABS: African American GFR (CKD) 138.4 (60.0-200.0); Albumin 2.5 g/dL (3.80-4.90); Albumin/Globulin Ratio 1.32 (1.60-3.17); Anion Gap 5.7 mmol/L (4.00-12.00); Calcium 9.8 mg/dL (8.7-10.3); Carbon Dioxide 28.3 mmol/L (21.6-31.8); Globulin 1.9 g/dL (1.6-3.3); Magnesium 1.8 mg/dL (1.5-2.4); Non-African American GFR(CKD) 119.5 (60.0-200.0); Potassium 4.1 mmol/L (3.5-5.5); Total Bilirubin 0.5 mg/dL (0.3-1.2); Total Protein 4.4 g/dL (6.2-8.2)
--- NOTE | 2021-03-14 14:43 | P.PN ---
Subjective Progress Note Date: 03/14/21 CHIEF COMPLAINT: Fever HISTORY OF PRESENT ILLNESS: Patient denies any abdominal pain. He reports that his ostomy is functioning. His output has been more watery since being on antibiotics. He denies any nausea or vomiting. Afebrile. White count 11.9 hemoglobin 8.8 PHYSICAL EXAM: VITAL SIGNS: Reviewed. GENERAL: Well-developed in no acute distress. HEENT: No sclera icterus. Extraocular movements grossly intact. Moist buccal mucosa. Head is atraumatic, normocephalic. ABDOMEN: Soft. Nondistended. Nontender. Ostomy functioning NEUROLOGIC: Alert and oriented. Cranial nerves II through XII grossly intact. ASSESSMENT: 1. History of pancreatic cancer 2. Fever 3. Ileus noted on KUB x-ray. Computed tomography scan finding shows no evidence of ileus or bowel obstruction. Patient reports that his ostomy is functioning. Patient may have had a resolving ileus. 4. Prior prolapse of colostomy with recent partial colectomy 2 weeks ago. No evidence of prolapse at this time PLAN: -No surgical intervention planned -Continue supportive care -Continue oncology workup Physician Brazing Furnace Feeder note has been reviewed by physician. Signing provider agrees with the documented findings, assessment, and plan of care. Objective - Vital Signs Vital signs: Vital Signs Temp 97.7 F 03/14/21 12:03 Pulse 76 03/14/21 12:03 Resp 16 03/14/21 12:03 BP 98/64 03/14/21 12:03 Pulse Ox 95 03/14/21 12:03 Intake & Output 03/13/21 03/14/21 03/14/21 18:59 06:59 18:59 Intake Total 1660 590 Output Total 200 200 Balance 1460 390 Weight 70.307 kg Intake: Intake, IV Titration 1660 Amount Ampicillin-Sulbactam 3 gm 100 In Sodium Chloride 0.9% 100 ml @ 200 mls/hr IVPB Q8HR [facility] Rx#:[id number] Sodium Chloride 0.9% 1, 1560 000 ml @ 130 mls/hr IV . Q7H42M [facility] Rx#:[id number] Oral 590 Output: Stool 200 200 Other: Voiding Method Toilet # Voids 2 1 - Labs CBC & Chem 7: 03/14/21 04:52 03/14/21 04:52 Labs: Abnormal Lab Results - Last 24 Hours (Table) 03/13/21 03/14/21 03/14/21 Range/Units 07:11 04:52 04:52 WBC 11.9 H (3.8-10.6) k/uL RBC 3.05 L (4.30-5.90) m/uL Hgb 8.8 L (13.0-17.5) gm/dL Hct 28.6 L (39.0-53.0) % MCHC 30.9 L (31.0-37.0) g/dL RDW 16.0 H (11.5-15.5) % Plt Count 140 L (150-450) k/uL Neutrophils # 9.9 H (1.3-7.7) k/uL Lymphocytes # 0.6 L (1.0-4.8) k/uL Creatinine 0.5 L (0.6-1.5) mg/dL Alkaline Phosphatase 507 H (41-126) U/L Total Protein 4.4 L (6.2-8.2) g/dL Albumin 2.50 L (3.80-4.90) g/dL Albumin/Globulin Ratio 1.32 L (1.60-3.17) g/dL CA 19-9 Antigen 155.0 H (0.0-34.9) U/mL Microbiology - Last 24 Hours (Table) 03/12/21 00:01 Blood Culture - Preliminary Blood No Growth after 48 hours 03/12/21 23:45 Blood Culture - Preliminary Blood No Growth after 48 hours
--- NOTE | 2021-03-14 16:30 | P.PN ---
Subjective Progress Note Date: 03/14/21 Principal diagnosis: Hospital course: Patient is a 60-year-old male with a past medical history of pancreatic cancer currently receiving chemotherapy and recurrent bowel obstructions resulting in colostomy placement. Patient recently underwent a colostomy revision 2 weeks ago and reports that over the past 5 days he has had constipation, decreased appetite, fevers, and overall just not feeling well. In the emergency department, KUB was completed revealing distended small bowel possibly relating to some ileus or partial obstruction. Chest x-ray negative for acute cardiopulmonary process. EKG normal sinus rhythm at 83 bpm. Patient was found to have leukocytosis with WBC count of 17.9 with left shift, hyponatremia with sodium 133, hypochloremia with chloride 96, elevated carbon dioxide 32 hypercalcemia with calcium 10.7 elevated alkaline phosphatase 525, elevated LDH 285, and CRP 19.9. Covid 19 PCR negative. Subjective: Patient feels okay today, no chest pain no abdominal pain no nausea no vomiting no dizziness. Remains afebrile. Has some loose stools Objective - Vital Signs Vital signs: Vital Signs Temp 97.7 F 03/14/21 12:03 Pulse 76 03/14/21 12:03 Resp 16 03/14/21 12:03 BP 98/64 03/14/21 12:03 Pulse Ox 95 03/14/21 12:03 Intake & Output 03/13/21 03/14/21 03/14/21 18:59 06:59 18:59 Intake Total 1660 590 Output Total 200 200 Balance 1460 390 Weight 70.307 kg Intake: Intake, IV Titration 1660 Amount Ampicillin-Sulbactam 3 gm 100 In Sodium Chloride 0.9% 100 ml @ 200 mls/hr IVPB Q8HR [facility] Rx#:[id number] Sodium Chloride 0.9% 1, 1560 000 ml @ 130 mls/hr IV . Q7H42M [facility] Rx#:[id number] Oral 590 Output: Stool 200 200 Other: Voiding Method Toilet # Voids 2 1 - Exam General: Nontoxic, no distress and appears stated age. Derm: Skin warm Head: Atraumatic, normocephalic and symmetric. Eyes: EOMs intact, no lid lag, and anicteric sclera Mouth: no lip lesions, mucus membranes moist Cardiovascular: regular rate and rhythm with normal S1S2, no murmur Lungs: Respirations even, regular, and unlabored on room air. Lungs CTA bilaterally, no rhonchi, no rales, no wheezing Abdominal: soft, nontender to palpation, no guarding, no appreciable organomegaly. Ostomy in place Ext: ROM intact. No gross muscle atrophy, no edema, no contractures Neuro: Speech clear, face symmetrical and CN II-XII grossly intact with no noted focal neuro deficits Psych: Alert and oriented to person, place, time, and situation. - Labs CBC & Chem 7: 03/14/21 04:52 03/14/21 04:52 Labs: Abnormal Lab Results - Last 24 Hours (Table) 03/13/21 03/14/21 03/14/21 Range/Units 07:11 04:52 04:52 WBC 11.9 H (3.8-10.6) k/uL RBC 3.05 L (4.30-5.90) m/uL Hgb 8.8 L (13.0-17.5) gm/dL Hct 28.6 L (39.0-53.0) % MCHC 30.9 L (31.0-37.0) g/dL RDW 16.0 H (11.5-15.5) % Plt Count 140 L (150-450) k/uL Neutrophils # 9.9 H (1.3-7.7) k/uL Lymphocytes # 0.6 L (1.0-4.8) k/uL Creatinine 0.5 L (0.6-1.5) mg/dL Alkaline Phosphatase 507 H (41-126) U/L Total Protein 4.4 L (6.2-8.2) g/dL Albumin 2.50 L (3.80-4.90) g/dL Albumin/Globulin Ratio 1.32 L (1.60-3.17) g/dL CA 19-9 Antigen 155.0 H (0.0-34.9) U/mL Microbiology - Last 24 Hours (Table) 03/12/21 00:01 Blood Culture - Preliminary Blood No Growth after 48 hours 03/12/21 23:45 Blood Culture - Preliminary Blood No Growth after 48 hours Assessment and Plan Plan: Subjective fever and Leukocytosis - KUB was completed revealing distended small bowel possibly relating to some ileus or partial obstruction. -Chest x-ray negative for acute cardiopulmonary process. -WBC count 17.9 and CRP 19.9 upon admission, improved down to 11,000. -Continue IV antibiotics Unasyn -Consult general surgery, Dr. Hays, input appreciated. No ileus. -Blood cultures 2 sets -IV fluids CT abd hypodense lesion within the pancreas at 5. Junction with developing pain getting duct dilatation of the tail. Mass pudo cyst formation be considered. Appreciate input from oncology Hyponatremia -Resolved Status post recent revision of colostomy -KUB was completed revealing distended small bowel possibly relating to some ileus or partial obstruction. -Consult general surgery, Dr. Hays. -Colostomy care Pancreatic cancer -Continue to follow up with hematology/oncology outpatient as scheduled -Symptomatic care and pain management Abdominal CT as above Hypomagnesemia: Likely associated with hypovolemia and with malignancy Calcium 10.7 upon admission, improved to 9.8 CODE STATUS: Full code DVT prophylaxis: Lovenox Discussed with: Patient and RN Disposition: Pending clinical progression, home in 1-2 days once cleared by Hematology/Oncology
[2021-03-14] MEDS: LOPERAMIDE 2 MG CAP PO PRN (16:34)
[2021-03-14] MEDS: HYDROcodone/APAP 10-325MG 1 EACH TAB PO PRN (20:11)
[2021-03-14] MEDS: ONDANSETRON 4 MG/2 ML VIAL IVP PRN (21:04)
--- NOTE | 2021-03-14 22:48 | P.PN ---
Subjective Progress Note Date: 03/14/21 Principal diagnosis: Persistent nausea and vomiting increasing CA=19-9 155 (117), Progression suspicious on imaging as well, likely underlying cause of persistent symptoms. Objective - Vital Signs Vital signs: Vital Signs Temp 98.5 F 03/14/21 04:16 Pulse 77 03/14/21 04:16 Resp 16 03/14/21 04:16 BP 120/68 03/14/21 04:16 Pulse Ox 95 03/14/21 04:16 Intake & Output 03/13/21 03/14/21 03/14/21 18:59 06:59 18:59 Intake Total 1660 590 Output Total 200 200 Balance 1460 390 Weight 70.307 kg Intake: Intake, IV Titration 1660 Amount Ampicillin-Sulbactam 3 gm 100 In Sodium Chloride 0.9% 100 ml @ 200 mls/hr IVPB Q8HR [facility] Rx#:[id number] Sodium Chloride 0.9% 1, 1560 000 ml @ 130 mls/hr IV . Q7H42M [facility] Rx#:[id number] Oral 590 Output: Stool 200 200 Other: Voiding Method Toilet # Voids 2 - Exam - Constitutional General appearance: cooperative, no acute distress - EENT Eyes: EOMI, PERRLA ENT: hard of hearing, NA/AT - Respiratory Respiratory: bilateral: CTA - Cardiovascular Rhythm: regular - Gastrointestinal Ostomy with stool output General gastrointestinal: soft, tenderness - Integumentary Integumentary: pale - Neurologic Neurologic: CNII-XII intact - Musculoskeletal Musculoskeletal: generalized weakness - Psychiatric Psychiatric: A&O x's 3, appropriate affect, intact judgment & insight - Labs CBC & Chem 7: 03/14/21 04:52 03/14/21 04:52 Labs: Abnormal Lab Results - Last 24 Hours (Table) 03/13/21 03/13/21 03/14/21 Range/Units 07:11 07:11 04:52 WBC 11.9 H (3.8-10.6) k/uL RBC 3.05 L (4.30-5.90) m/uL Hgb 8.8 L (13.0-17.5) gm/dL Hct 28.6 L (39.0-53.0) % MCHC 30.9 L (31.0-37.0) g/dL RDW 16.0 H (11.5-15.5) % Plt Count 140 L (150-450) k/uL Neutrophils # 9.9 H (1.3-7.7) k/uL Lymphocytes # 0.6 L (1.0-4.8) k/uL Creatinine 0.5 L (0.6-1.5) mg/dL BUN/Creatinine Ratio 24.00 H (12.00-20.00) Ratio Phosphorus 2.3 L (2.4-5.1) mg/dL Alkaline Phosphatase 499 H (41-126) U/L Total Protein 4.6 L (6.2-8.2) g/dL Albumin 2.60 L (3.80-4.90) g/dL Albumin/Globulin Ratio 1.30 L (1.60-3.17) g/dL CA 19-9 Antigen 155.0 H (0.0-34.9) U/mL Microbiology - Last 24 Hours (Table) 03/12/21 00:01 Blood Culture - Preliminary Blood No Growth after 48 hours 03/12/21 23:45 Blood Culture - Preliminary Blood No Growth after 48 hours Assessment and Plan (1) Pancreatic cancer Current Visit: Yes Status: Acute Code(s): C25.9 - MALIGNANT NEOPLASM OF PANCREAS, UNSPECIFIED SNOMED Code(s): 413766225 (2) Ileus Current Visit: Yes Status: Acute Code(s): K56.7 - ILEUS, UNSPECIFIED SNO MED Code(s): 011005412 (3) Leukocytosis Current Visit: Yes Status: Acute Code(s): D72.829 - ELEVATED WHITE BLOOD CELL COUNT, UNSPECIFIED SNOMED Code(s): 734900332 Plan: Review of Abdominal Xray, possible ileus. Ostomy with output, no free air. Infectious work-up in progress Afebrile since admission Chemo has been on hold for past 3 weeks status post ostomy revision. CT Abdomen and Pelvis with Contrast with progression will set up to see primary oncologist at discharge to discuss treatment plan second line options further Ca 19-9 today shows increase from recent 155 (117)
[2021-03-15] MEDS: ONDANSETRON 4 MG/2 ML VIAL IVP PRN ×2 (04:59→19:15)
[2021-03-15 06:40] LABS: Anisocytosis Slight; Basophils % (A) 0 %; Eosinophils # (A) 0.5 k/uL (0-0.7); Eosinophils % (A) 3 %; HCT 31.2 % (39.0-53.0); HGB 9.8 gm/dL (13.0-17.5); Hypochromasia Marked; Lymphocytes # (A) 0.7 k/uL (1.0-4.8); Lymphocytes % (A) 4 %; MCH 29.1 pg (25.0-35.0); MCHC 31.4 g/dL (31.0-37.0); MCV 92.6 fL (80.0-100.0); Mean Platelet Volume 8.6; Monocytes % (A) 6 %; Neutrophils # (A) 14.3 k/uL (1.3-7.7); Neutrophils % (A) 86 %; Platelet Count 141 k/uL (150-450); Poikilocytosis Slight; RBC 3.37 m/uL (4.30-5.90); RDW 16.1 % (11.5-15.5); WBC 16.6 k/uL (3.8-10.6)
[2021-03-15 07:14] LABS: ALT 14 U/L (4-49); AST 45 U/L (17-59); African American GFR (CKD) >90 (>60 ml/min/1.73 sqM); Albumin 2.3 g/dL (3.5-5.0); Albumin/Globulin Ratio 0.9; Alkaline Phosphatase 593 U/L (38-126); Anion Gap 4 mmol/L; Blood Urea Nitrogen 10 mg/dL (9-20); Carbon Dioxide 28 mmol/L (22-30); Chloride 104 mmol/L (98-107); Globulin 2.5 g/dL; Glucose 113 mg/dL (74-99); Non-African American GFR(CKD) >90 (>60 ml/min/1.73 sqM); Sodium 136 mmol/L (137-145); Total Bilirubin 0.6 mg/dL (0.2-1.3); Total Protein 4.8 g/dL (6.3-8.2)
[2021-03-15] MEDS: PANTOPRAZOLE 40 MG TABLET PO SCH (08:50)
[2021-03-15] MEDS: AMPICILLIN-SULBACTAM 3 GM in SODIUM CHLORIDE 0.9% 100 ML IVPB SCH ×2 (08:50→16:29)
[2021-03-15] MEDS: lisinopriL 20 MG TAB PO SCH (08:51)
[2021-03-15] MEDS: TAMSULOSIN 0.4 MG CAP.ER.24H PO SCH (08:52)
[2021-03-15] MEDS: HYDROcodone/APAP 10-325MG 1 EACH TAB PO PRN (08:52)
[2021-03-15] MEDS: PROPRANOLOL 40 MG TAB PO SCH ×2 (08:52→20:53)
[2021-03-15] MEDS: LOPERAMIDE 2 MG CAP PO PRN (09:17)
--- NOTE | 2021-03-15 12:37 | CDI ---
Documentation Clarification Form Date: 03/15/2021 11:47:39 AM From: Nora Feldman RN CCDS Admit Date: 03/12/2021 10:34:00 AM Patient Name: Norbert Schmitt Visit Number: [id number] Discharge Date: ATTENTION: The Clinical Documentation Specialists (CDI) and [facility] Coding Staff appreciate your assistance in clarifying documentation. Please respond to the clarification below the line at the bottom and electronically sign. The CDI & [facility] Coding staff will review the response and follow-up if needed. Please note: Queries are made part of the Legal Health Record. If you have any questions, please contact the author of this message via ITS. Dr. Sera Watson Your patient is receiving the following: Ampicillin Sodium /Sulbactam Sodium 3gm IVPB Q8HR [facility], 03/12 to current. Please clarify what condition/diagnosis is being treated. History/Risk Factors: 60-year-old male presents to the ED at the request of his Oncologist for evaluation of not feeling well and having fevers. Medical History: Colostomy revision due to obstruction 02/27/21, Last cycle of chemotherapy was three weeks ago, Pancreatic cancer with mets to liver and lung. Clinical indicators: VVS: 03/11 B/P 136/86, HR 86, Temp 98.6, SpO2 95% RA, RR 20. CXR: 03/12 Negative for acute cardiopulmonary process. KUB: 03/12 Distended small bowel possibly relating to some ileus or partial obstruction. CT Abd Pelvis: Hypodense lesion within the pancreas at 5 and tail junction with developing pancreatic duct dilation of the tail. Ill defined mass like areas within the liver. Mild superimposed biliary dilation. Pelvic osseous abnormalities maybe involuting metabatic lesions. Ascites. New mass posterior medial right lung base. Blood culture: 03/12 No growth after 72 hours 03/15. Wbc: 03/11 17.9; 03/13 11.3; 03/14 11.9; 03/15 16.6 Neutrophils: 03/11 15.2; 03/13 9.3; 03/14 9.9; 03/15 14.3 Alk Phos: 03/11 525. LDH 285; CRP19.9 CA 19-9 Antigen: 03/13 155.0 Surgical Consult: 03/13 Ileus noted on KUB Xray. CT scan finding shows no evidence of ileus or bowel obstruction. Patient reports that his ostomy is functioning. Patient may have had a resolving ileus. Treatment: Ampicillin Sodium /Sulbactam Sodium 3gm IVPB Q8HR [facility], 03/12 to current. What diagnosis are you treating with Ampicillin Sodium / Sulbactam Sodium 3gm IVPB? [ ] Please provide a clinically appropriate diagnosis for the treatment administered [ ] Other, please specify [ X ] Unable to determine (Template Last Reviewed: August 2020) MTDD
--- NOTE | 2021-03-15 14:31 | P.PN ---
Subjective Progress Note Date: 03/15/21 CHIEF COMPLAINT: Fever HISTORY OF PRESENT ILLNESS: Patient denies any abdominal pain. He reports that his ostomy is functioning. His output is becoming more formed. He denies any nausea or vomiting. Afebrile. WBC 16.6 hemoglobin 9.8 platelets 141 CA-19-9 elevated at 155 which is increased from 117 PHYSICAL EXAM: VITAL SIGNS: Reviewed. GENERAL: Well-developed in no acute distress. HEENT: No sclera icterus. Extraocular movements grossly intact. Moist buccal mucosa. Head is atraumatic, normocephalic. ABDOMEN: Soft. Nondistended. Nontender. Ostomy functioning NEUROLOGIC: Alert and oriented. Cranial nerves II through XII grossly intact. ASSESSMENT: 1. History of pancreatic cancer. 2. Fever 3. Ileus noted on KUB x-ray. Computed tomography scan finding shows no evidence of ileus or bowel obstruction. Patient reports that his ostomy is functioning. Patient may have had a resolving ileus. 4. Prior prolapse of colostomy with recent partial colectomy 2 weeks ago. No evidence of prolapse at this time PLAN: -No surgical intervention planned -Continue supportive care -Continue oncology workup Physician Pumper Head note has been reviewed by physician. Signing provider agrees with the documented findings, assessment, and plan of care. Objective - Vital Signs Vital signs: Vital Signs Temp 98.4 F 03/15/21 12:16 Pulse 79 03/15/21 12:16 Resp 16 03/15/21 12:16 BP 113/71 03/15/21 12:16 Pulse Ox 91 L 03/15/21 04:23 Intake & Output 03/14/21 03/15/21 03/15/21 18:59 06:59 18:59 Intake Total 1100 Balance 1100 Weight 70.307 kg Intake: Oral 1100 Other: Voiding Method Toilet Toilet # Voids 3 1 - Labs CBC & Chem 7: 03/15/21 06:00 03/15/21 06:00 Labs: Abnormal Lab Results - Last 24 Hours (Table) 03/15/21 03/15/21 Range/Units 06:00 06:00 WBC 16.6 H (3.8-10.6) k/uL RBC 3.37 L (4.30-5.90) m/uL Hgb 9.8 L (13.0-17.5) gm/dL Hct 31.2 L (39.0-53.0) % RDW 16.1 H (11.5-15.5) % Plt Count 141 L (150-450) k/uL Neutrophils # 14.3 H (1.3-7.7) k/uL Lymphocytes # 0.7 L (1.0-4.8) k/uL Sodium 136 L (137-145) mmol/L Creatinine 0.51 L (0.66-1.25) mg/dL Glucose 113 H (74-99) mg/dL Calcium 11.0 H (8.4-10.2) mg/dL Alkaline Phosphatase 593 H (38-126) U/L Total Protein 4.8 L (6.3-8.2) g/dL Albumin 2.3 L (3.5-5.0) g/dL Microbiology - Last 24 Hours (Table) 03/12/21 23:45 Blood Culture - Preliminary Blood No Growth after 72 hours 03/12/21 00:01 Blood Culture - Preliminary Blood No Growth after 72 hours
[2021-03-15] MEDS: SODIUM CHLORIDE 0.9% 1,000 ML IV SCH ×2 (14:59→17:00)
--- NOTE | 2021-03-15 16:24 | P.PN ---
Subjective Progress Note Date: 03/15/21 Principal diagnosis: Pyrexia Patient is a 60-year-old male with a past medical history of pancreatic cancer currently receiving chemotherapy and recurrent bowel obstructions resulting in colostomy placement. Patient recently underwent a colostomy revision 2 weeks ago and reports that over the past 5 days he has had constipation, decreased appetite, fevers, and overall just not feeling well. In the emergency department, KUB was completed revealing distended small bowel possibly relating to some ileus or partial obstruction. Chest x-ray negative for acute cardiopulmonary process. EKG normal sinus rhythm at 83 bpm. patient presented to the hospital with leukocytosis with leftward shift, pyrexia elevated inflammatory markers. Patient had a negative COVID-19 test 03/15/2021: Patient seen and examined. He denies any complaints of any cough no shortness of breath. No complaints of chest pain. Patient's 24-hour T max is 99.3. Patient denies any urinary complaints no nausea no vomiting no diarrhea no abdominal pain. Objective - Vital Signs Vital signs: Vital Signs Temp 98.4 F 03/15/21 12:16 Pulse 79 03/15/21 12:16 Resp 16 03/15/21 12:16 BP 113/71 03/15/21 12:16 Pulse Ox 91 L 03/15/21 04:23 Intake & Output 03/14/21 03/15/21 03/15/21 18:59 06:59 18:59 Intake Total 1100 40 Balance 1100 40 Weight 70.307 kg Intake: Oral 1100 40 Other: Voiding Method Toilet Toilet # Voids 3 1 - Exam General: Nontoxic, no distress and appears stated age. Derm: Skin warm Head: Atraumatic, normocephalic and symmetric. Eyes: EOMs intact, no lid lag, and anicteric sclera Mouth: no lip lesions, mucus membranes moist Cardiovascular: regular rate and rhythm with normal S1S2, no murmur Lungs: Respirations even, regular, and unlabored on room air. Lungs CTA bilaterally, no rhonchi, no rales, no wheezing Abdominal: soft, nontender to palpation, no guarding, no appreciable organomegaly. Ostomy in place Ext: ROM intact. No gross muscle atrophy, no edema, no contractures Neuro: Speech clear, face symmetrical and CN II-XII grossly intact with no noted focal neuro deficits Psych: Alert and oriented to person, place, time, and situation. - Labs CBC & Chem 7: 03/15/21 06:00 03/15/21 06:00 Labs: Abnormal Lab Results - Last 24 Hours (Table) 03/15/21 03/15/21 Range/Units 06:00 06:00 WBC 16.6 H (3.8-10.6) k/uL RBC 3.37 L (4.30-5.90) m/uL Hgb 9.8 L (13.0-17.5) gm/dL Hct 31.2 L (39.0-53.0) % RDW 16.1 H (11.5-15.5) % Plt Count 141 L (150-450) k/uL Neutrophils # 14.3 H (1.3-7.7) k/uL Lymphocytes # 0.7 L (1.0-4.8) k/uL Sodium 136 L (137-145) mmol/L Creatinine 0.51 L (0.66-1.25) mg/dL Glucose 113 H (74-99) mg/dL Calcium 11.0 H (8.4-10.2) mg/dL Alkaline Phosphatase 593 H (38-126) U/L Total Protein 4.8 L (6.3-8.2) g/dL Albumin 2.3 L (3.5-5.0) g/dL Microbiology - Last 24 Hours (Table) 03/12/21 23:45 Blood Culture - Preliminary Blood No Growth after 72 hours 03/12/21 00:01 Blood Culture - Preliminary Blood No Growth after 72 hours Assessment and Plan Assessment: pyrexia and Leukocytosis -And has mild pyrexia with a T-max of 99.3 with leukocytosis without clear source of infection at this time. Possibility of acute viral illness. - KUB was completed showed possibility of ileus -Chest x-ray negative for acute cardiopulmonary process. -Leukocytosis as has worsened today with WBC count of 16.6 -empiric treatment with Unasyn which we can de-escalate -Regime is currently following -Infectious workup negative to date CT abd hypodense lesion within the pancreas at 5. Junction with developing pain getting duct dilatation of the tail. Mass pudo cyst formation be considered. Appreciate input from oncology Hyponatremia -Resolved Status post recent revision of colostomy -KUB was completed revealing distended small bowel possibly relating to some i leus or partial obstruction. -Consult general surgery, Dr. Hays. -Colostomy care Pancreatic cancer -Continue to follow up with hematology/oncology outpatient as scheduled -Symptomatic care and pain management Abdominal CT as above Hypomagnesemia: Likely associated with hypovolemia and with malignancy Calcium 10.7 upon admission, improved to 9.8 Plan is to repeat CBC and inflammatory markers. If negative can DC antibiotics and likely discharge home.
--- NOTE | 2021-03-15 19:08 | P.PN ---
Subjective Progress Note Date: 03/15/21 The patient has been afebrile since admission. Still complains of some fatigue and generalized weakness. However appetite appears to have improved. He states that he has not had recurrent nausea or vomiting at least over the past 24 hours. Objective - Vital Signs Vital signs: Vital Signs Temp 98.4 F 03/15/21 12:16 Pulse 79 03/15/21 12:16 Resp 16 03/15/21 12:16 BP 113/71 03/15/21 12:16 Pulse Ox 91 L 03/15/21 04:23 Intake & Output 03/15/21 03/15/21 03/16/21 06:59 18:59 06:59 Intake Total 40 Balance 40 Weight 70.307 kg Intake: Oral 40 Other: Voiding Method Toilet Toilet # Voids 1 1 - Constitutional General appearance: Present: no acute distress - EENT Eyes: Present: EOMI ENT: Present: hearing grossly normal, normal oropharynx - Respiratory Respiratory: bilateral: CTA - Cardiovascular Rhythm: regular Heart sounds: normal: S1, S2 - Gastrointestinal General gastrointestinal: Present: normal bowel sounds, soft - Integumentary Integumentary: Present: normal - Neurologic Neurologic: Present: CNII-XII intact - Musculoskeletal Musculoskeletal: Present: generalized weakness, strength equal bilaterally - Psychiatric Psychiatric: Present: A&O x's 3, appropriate affect - Labs CBC & Chem 7: 03/15/21 06:00 03/15/21 06:00 Labs: Abnormal Lab Results - Last 24 Hours (Table) 03/15/21 03/15/21 Range/Units 06:00 06:00 WBC 16.6 H (3.8-10.6) k/uL RBC 3.37 L (4.30-5.90) m/uL Hgb 9.8 L (13.0-17.5) gm/dL Hct 31.2 L (39.0-53.0) % RDW 16.1 H (11.5-15.5) % Plt Count 141 L (150-450) k/uL Neutrophils # 14.3 H (1.3-7.7) k/uL Lymphocytes # 0.7 L (1.0-4.8) k/uL Sodium 136 L (137-145) mmol/L Creatinine 0.51 L (0.66-1.25) mg/dL Glucose 113 H (74-99) mg/dL Calcium 11.0 H (8.4-10.2) mg/dL Alkaline Phosphatase 593 H (38-126) U/L Total Protein 4.8 L (6.3-8.2) g/dL Albumin 2.3 L (3.5-5.0) g/dL Microbiology - Last 24 Hours (Table) 03/12/21 23:45 Blood Culture - Preliminary Blood No Growth after 72 hours 03/12/21 00:01 Blood Culture - Preliminary Blood No Growth after 72 hours Assessment and Plan (1) Fever Narrative/Plan: This is not recurred, and infection workup has been negative. Labs as well as imaging did not show any evidence of the obstruction. Therefore his fever and other symptoms may have represented a transient viral syndrome. Tumor fever is also not ruled out as there is suspicion for progression. Current Visit: Yes Status: Acute Code(s): R50.9 - FEVER, UNSPECIFIED SNOMED Code(s): 025679267 (2) Pancreatic cancer Narrative/Plan: The patient's CT scans showed progression in the pancreas, as well as along. The results were discussed in detail with him. The scan was compared to a prior scan from 10/24. The patient did have treatment changed subsequently and therefore the current scan may not be fully accurate to assess the efficacy, or not , of of his current regimen. However the patient also shows increase in his CA 19-9. This is more suspicious for progression. - This was also discussed with his primary oncologist Dr. Johansen. The patient has an upcoming appointment and was advised discussed the same with him. Current Visit: Yes Status: Acute Code(s): C25.9 - MALIGNANT NEOPLASM OF PANCREAS, UNSPECIFIED SNOMED Code(s): 555942901 Plan: Okay to discharge from our standpoint. D/W nsg
[2021-03-15 20:25] VITALS: RESP 18
[2021-03-15] MEDS: PROBENECID 500 MG TAB PO SCH (20:52)
[2021-03-16] MEDS: AMPICILLIN-SULBACTAM 3 GM in SODIUM CHLORIDE 0.9% 100 ML IVPB SCH ×2 (00:39→09:05)
[2021-03-16] MEDS: HYDROcodone/APAP 10-325MG 1 EACH TAB PO PRN (04:51)
[2021-03-16] MEDS: LOPERAMIDE 2 MG CAP PO PRN ×2 (05:04→11:11)
[2021-03-16] MEDS: SODIUM CHLORIDE 0.9% 1,000 ML IV SCH ×2 (05:05→09:05)
[2021-03-16 05:45] VITALS: TEMP 98.1
[2021-03-16 05:54] LABS: Anisocytosis Slight; Basophils % (A) 0 %; Eosinophils # (A) 0.3 k/uL (0-0.7); Eosinophils % (A) 2 %; HCT 28.3 % (39.0-53.0); Hypochromasia Marked; Lymphocytes # (A) 0.8 k/uL (1.0-4.8); Lymphocytes % (A) 6 %; MCH 29.3 pg (25.0-35.0); MCHC 31.8 g/dL (31.0-37.0); MCV 92.1 fL (80.0-100.0); Monocytes % (A) 8 %; Neutrophils # (A) 10.9 k/uL (1.3-7.7); Neutrophils % (A) 83 %; Platelet Count 111 k/uL (150-450); Poikilocytosis Slight; RBC 3.07 m/uL (4.30-5.90); RDW 16.2 % (11.5-15.5); WBC 13.2 k/uL (3.8-10.6)
[2021-03-16] MEDS: TAMSULOSIN 0.4 MG CAP.ER.24H PO SCH (09:05)
[2021-03-16] MEDS: PROBENECID 500 MG TAB PO SCH (09:05)
[2021-03-16] MEDS: PANTOPRAZOLE 40 MG TABLET PO SCH (09:05)
[2021-03-16] MEDS: lisinopriL 20 MG TAB PO SCH (09:06)
[2021-03-16] MEDS: PROPRANOLOL 40 MG TAB PO SCH (09:06)
[2021-03-16] MEDS ORDERED: SIMETHICONE 80 MG CHEWABLE PO SCH (10:00)
--- NOTE | 2021-03-16 10:00 | P.PN ---
Subjective Progress Note Date: 03/16/21 Principal diagnosis: Abdominal pain Patient doing well today. Says he has no pain at this time. White blood cell count 13.2. He is afebrile. He would like to go home. He is tolerating his diet. Objective - Vital Signs Vital signs: Vital Signs Temp 98.1 F 03/16/21 05:00 Pulse 77 03/16/21 05:00 Resp 18 03/16/21 05:00 BP 118/77 03/16/21 05:00 Pulse Ox 95 03/16/21 05:00 Intake & Output 03/15/21 03/16/21 03/16/21 18:59 06:59 18:59 Intake Total 40 500 Balance 40 500 Weight 70.307 kg Intake: Oral 40 500 Other: Voiding Method Toilet Toilet # Voids 1 2 - Exam Abdomen: Soft, nondistended, ostomy functioning, nontender - Labs CBC & Chem 7: 03/16/21 04:42 03/15/21 06:00 Labs: Abnormal Lab Results - Last 24 Hours (Table) 03/15/21 03/16/21 Range/Units 06:00 04:42 WBC 13.2 H (3.8-10.6) k/uL RBC 3.07 L (4.30-5.90) m/uL Hgb 9.0 L (13.0-17.5) gm/dL Hct 28.3 L (39.0-53.0) % RDW 16.2 H (11.5-15.5) % Plt Count 111 L (150-450) k/uL Neutrophils # 10.9 H (1.3-7.7) k/uL Lymphocytes # 0.8 L (1.0-4.8) k/uL Procalcitonin 0.87 H (0.02-0.09) ng/mL Microbiology - Last 24 Hours (Table) 03/12/21 00:01 Blood Culture - Preliminary Blood No Growth after 96 hours 03/12/21 23:45 Blood Culture - Preliminary Blood No Growth after 96 hours Assessment and Plan (1) Fever Narrative/Plan: Continue diet as tolerated. Monitor ostomy function. May discharge from surgical point of view. Current Visit: Yes Status: Acute Code(s): R50.9 - FEVER, UNSPECIFIED SNOMED Code(s): 780849612
[2021-03-16 10:14] VITALS: BP 117/73; PULSE 80
[2021-03-16 10:30] LABS: African American GFR (CKD) 138.4 (60.0-200.0); Anion Gap 7.1 mmol/L (4.00-12.00); Calcium 10.6 mg/dL (8.7-10.3); Carbon Dioxide 27.9 mmol/L (21.6-31.8); Non-African American GFR(CKD) 119.5 (60.0-200.0); Potassium 4.1 mmol/L (3.5-5.5)
--- NOTE | 2021-03-16 15:13 | P.DS ---
Providers Date of admission: 03/12/21 10:34 Expected date of discharge: 03/16/21 Attending physician: Jeff Pierce MD Consults: 03/12/21 00:34 Consult Physician Routine Consulting Provider: Jermaine Johansen Consult Reason/Comments: known Do you want consulting provider notified?: Yes 03/12/21 14:49 Consult Physician Routine Consulting Provider: Cory Hays Consult Reason/Comments: r/o ileus vs SBO s/p colostomy revision Do you want consulting provider notified?: Yes Primary care physician: Stated None Hospital Course: Patient is a 60-year-old male with a past medical history of pancreatic cancer currently receiving chemotherapy and recurrent bowel obstructions resulting in colostomy placement. Patient recently underwent a colostomy revision 2 weeks a go and reports that over the past 5 days he has had constipation, decreased appetite, fevers, and overall just not feeling well. In the emergency department, KUB was completed revealing distended small bowel possibly relating to some ileus or partial obstruction. Chest x-ray negative for acute cardiopulmonary process. EKG normal sinus rhythm at 83 bpm. patient presented to the hospital with leukocytosis with leftward shift, pyrexia elevated inflammatory markers. Patient had a negative COVID-19 test Patient did have a computed tomography scan performed in the hospital which did not reveal any evidence of acute infectious process. However patient's CT did show progression of malignancy. Patient's fevers did resolve and his hospitalization. She was treated with IV antibiotics and was transitioned to oral Augmentin on discharge. Possible source of infection was likely gastrointestinal versus others. No clear signs source of infection was identified. Patient's WBC count did improve during the day of discharge. He is recommended to follow up outpatient for repeat CBC and follow up with his PCP. And oncologist for ongoing treatment of his cancer. Discharge diagnoses #1 pyrexia with leukocytosis, next #2 hyponatremia, #3 status post recent revision of colostomy, #4 pancreatic cancer Patient Condition at Discharge: Fair Plan - Discharge Summary Discharge Rx Participant: No New Discharge Prescriptions: New Amoxicillin/Potassium Clav [Augmentin 875-125 Tablet] 1 tab PO Q12HR 5 Days #10 tab Continue Prochlorperazine [Compazine] 10 mg PO Q8H PRN PRN Reason: Nausea Omeprazole 20 mg PO HS HYDROmorphone [Dilaudid] 4 mg PO Q4H PRN PRN Reason: Breakthrough Pain HYDROcodone/APAP 10-325MG [[place] 10-325] 1 tab PO Q4HR PRN PRN Reason: Breakthrough Pain Tamsulosin [Flomax] 0.4 mg PO QAM ondansetron HCL [Zofran] 8 mg PO Q8HR PRN PRN Reason: Nausea Lidocaine-Prilocaine Cream [Emla Cream 2.5%/2.5%] 1 applic TOPICAL DIRECTED PRN PRN Reason: mediport 1 hr prior to chemo ALPRAZolam [Xanax] 0.25 mg PO TID PRN PRN Reason: Anxiety polyethylene glycoL 3350 [Miralax] 17 gm PO DAILY PRN PRN Reason: Constipation Propranolol HCl 80 mg PO BID Docusate [Colace] 100 mg PO TID Morphine Sulfate [Ms Contin] 60 mg PO Q8H Meclizine HCl [Bonine Chew] 25 mg PO TID PRN PRN Reason: Vertigo Benazepril HCl 20 mg PO QAM Discharge Medication List Docusate [Colace] 100 mg PO TID 09/24/20 [History] HYDROcodone/APAP 10-325MG [[place] 10-325] 1 tab PO Q4HR PRN 09/24/20 [History] HYDROmorphone [Dilaudid] 4 mg PO Q4H PRN 09/24/20 [History] Omeprazole 20 mg PO HS 09/24/20 [History] Prochlorperazine [Compazine] 10 mg PO Q8H PRN 09/24/20 [History] Propranolol HCl 80 mg PO BID 09/24/20 [History] Tamsulosin [Flomax] 0.4 mg PO QAM 09/24/20 [History] Morphine Sulfate [Ms Contin] 60 mg PO Q8H 10/10/20 [History] Benazepril HCl 20 mg PO QAM 10/15/20 [History] Lidocaine-Prilocaine Cream [Emla Cream 2.5%/2.5%] 1 applic TOPICAL DIRECTED PRN 10/15/20 [History] Meclizine HCl [Bonine Chew] 25 mg PO TID PRN 10/15/20 [History] ondansetron HCL [Zofran] 8 mg PO Q8HR PRN 10/15/20 [History] ALPRAZolam [Xanax] 0.25 mg PO TID PRN 10/17/20 [History] polyethylene glycoL 3350 [Miralax] 17 gm PO DAILY PRN 02/22/21 [History] Amoxicillin/Potassium Clav [Augmentin 875-125 Tablet] 1 tab PO Q12HR 5 Days #10 tab 03/16/21 [Rx] Follow up Appointment(s)/Referral(s): Jermaine Johansen MD [STAFF PHYSICIAN] - 1-2 days (patient to call office for follow up appt) Patient Instructions/Handouts: Amoxicillin/Clavulanate Potassium (By mouth), Fever in Adults (GEN) Discharge Disposition: HOME SELF-CARE
== END 2021-03-16 12:18 | disposition home or self-care (01) | DRG 389 ==
LOC: EC 22:30 → 5NMEDONC 03-12 00:33 → OBSVTOIN 03-12 10:34 → 5NMEDONC 03-12 15:40
PROVIDERS: ADMIT Internal Medicine; ATTEND Internal Medicine
DX: K56.7 Ileus, unspecified (principal); K91.89 Other postprocedural complications and disorders of digestive system; C25.9 Malignant neoplasm of pancreas, unspecified; E87.1 Hypo-osmolality and hyponatremia; R18.8 Other ascites; L03.311 Cellulitis of abdominal wall; K94.22 Gastrostomy infection; Z20.822 Contact with and (suspected) exposure to COVID-19; D64.9 Anemia, unspecified; E78.5 Hyperlipidemia, unspecified; E83.42 Hypomagnesemia; E83.52 Hypercalcemia; E86.0 Dehydration; E86.1 Hypovolemia; M19.90 Unspecified osteoarthritis, unspecified site; E87.8 Other disorders of electrolyte and fluid balance, not elsewhere classified; F41.9 Anxiety disorder, unspecified; I10 Essential (primary) hypertension; N40.0 Benign prostatic hyperplasia without lower urinary tract symptoms; Z87.891 Personal history of nicotine dependence; Z90.49 Acquired absence of other specified parts of digestive tract; Z87.19 Personal history of other diseases of the digestive system; Y83.8 Other surgical procedures as the cause of abnormal reaction of the patient, or of later complication, without mention of misadventure at the time of the procedure
CPT/HCPCS: 36415; 71045; 74018; 74177; 80048; 80053; 83605; 83615; 83690; 83735; 83880; 84100; 84145; 85025; 85610; 85730; 86140; 86301; 87040; 87635; 93005; 96374; 96375; 99285

== ENCOUNTER 2021-03-20 19:50 | Inpatient (IN) | payer MEDICARE ==
[2021-03-20] MEDS ORDERED: SODIUM CHLORIDE 0.9% 1,000 ML IV STA (20:52)
--- NOTE | 2021-03-20 21:25 | ED ---
General Adult HPI - General Chief complaint: Neuro Symptoms/Deficit Stated complaint: weakness Time Seen by Provider: 03/20/21 20:24 Source: patient, family Mode of arrival: wheelchair Limitations: no limitations - History of Present Illness Initial comments: Dictation was produced using [employer] dictation software. please excuse any grammatical, word or spelling errors. Chief Complaint: 60-year-old male brought in by daughter for frequent falls, generalized weakness. He has history of stage IV pancreatic cancer History of Present Illness: Patient is a 52-year-old male has past medical history of stage IV pancreatic cancer with metastatic disease. He states that he started feeling weak for the last several days. He fell down hit the back of his head and his face sometime yesterday afternoon while daughter was at work. Patient states she's been feeling weak. He's been on some new medication in preparation for another round of chemotherapy. Patient denies any pain complaints. He is not on hospice care yet however has considered it. Daughter reports that patient looks more pale than his usual pale self. The ROS documented in this emergency department record has been reviewed and confirmed by me. Those systems with pertinent positive or negative responses have been documented in the HPI. All other systems are other negative and/or noncontributory. PHYSICAL EXAM: General Impression: Alert and oriented x3, not in acute distress HEENT: Bruising to the forehead, small hematoma to the occiput, extra-ocular movements intact, pupils equal and reactive to light bilaterally, dry mucous membranes Cardiovascular: Heart regular rate and rhythm Chest: Able to complete full sentences, no retractions, no tachypnea Abdomen: abdomen soft, non-tender, non-distended, no organomegaly, ostomy site intact Musculoskeletal: Pulses present and equal in all extremities, no peripheral edema, ecchymoses to the right forefoot Motor: no focal deficits noted Neurological: CN II-XII grossly intact, no focal motor or sensory deficits noted Skin: Intact with no visualized rashes Psych: Normal affect and mood ED course: 60-year-old male presents to the emergency Department with weakness and frequent falls over the last several days. He has stage IV pancreatic cancer. Vital signs upon arrival shows heart rate of 111, blood pressure 84/56, rest of vital signs within acceptable limits. Daughter at bedside states that patient is significantly weak and unable to care for himself at home. Patient is not a good social situation because daughter has to leave often for work. Patient is a fall risk. Laboratory evaluation obtained. White blood cell count 26.2, hemoglobin 10.3. Platelet count of 91. Coag panel is unremarkable. Metabolic panel shows sodium of 1:30, elevated BUN of 29. Ionized calcium 7.1, alk phos of 764. 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 Patient given IV fluids. Serial blood pressure measurements are stable and improving with fluids. Right foot and left ankle X-ray pelvis x-ray chest x-ray shows no acute processes. Patient reevaluated at bedside at 10:30 PM found to be in stable medical condition. He is resting comfortably and did not show any signs of acute distress. Patient will be admitted for borderline low blood pressure, hypercalcemia generalized weakness fall risk. He is discussed with sheet was went accept patient's care. EKG interpretation: Ventricular rate 107, sinus tachycardia, IN interval 120, QRS 84, QTc 384. No IN prolongation, no QTC prolongation. ST depressions noted in V3 to V5. Overall this EKG is nonspecific - Related Data Home Medications Medication Instructions Recorded Confirmed Docusate [Colace] 100 mg PO TID 09/24/20 03/20/21 HYDROcodone/APAP 10-325MG [[place] 1 tab PO Q4HR PRN 09/24/20 03/20/21 10-325] HYDROmorphone [Dilaudid] 4 mg PO Q4H PRN 09/24/20 03/20/21 Omeprazole 20 mg PO HS 09/24/20 03/20/21 Prochlorperazine [Compazine] 10 mg PO Q8H PRN 09/24/20 03/20/21 Propranolol HCl 80 mg PO BID 09/24/20 03/20/21 Tamsulosin [Flomax] 0.4 mg PO QAM 09/24/20 03/20/21 Morphine Sulfate [Ms Contin] 60 mg PO Q8H 10/10/20 03/20/21 Benazepril HCl 20 mg PO QAM 10/15/20 03/20/21 Lidocaine-Prilocaine Cream [Emla 1 applic TOPICAL DIRECTED PRN 10/15/20 Cream 2.5%/2.5%] Meclizine HCl [Bonine Chew] 25 mg PO TID PRN 10/15/20 03/20/21 ondansetron HCL [Zofran] 8 mg PO Q8HR PRN 10/15/20 03/20/21 ALPRAZolam [Xanax] 0.25 mg PO TID PRN 10/17/20 03/20/21 polyethylene glycoL 3350 [Miralax] 17 gm PO DAILY PRN 02/22/21 03/20/21 Previous Rx's Medication Instructions Recorded Amoxicillin/Potassium Clav 1 tab PO Q12HR 5 Days #10 tab 03/16/21 [Augmentin 875-125 Tablet] Allergies Allergy/AdvReac Type Severity Reaction Status Date / Time No Known Allergies Allergy Verified 03/20/21 22:03 Review of Systems ROS Statement: Those systems with pertinent positive or pertinent negative responses have been documented in the HPI. ROS Other: All systems not noted in ROS Statement are negative. Past Medical History Past Medical History: Cancer, Hyperlipidemia, Hypertension, Osteoarthritis (OA), Prostate Disorder Additional Past Medical History / Comment(s): BPH, arthritis, 07/2020 pancreatic cancer with mets to liver and lung - has colostomy, mediport for chemo w/ weekly tx. Multiple colostomy prolapses History of Any Multi-Drug Resistant Organisms: None Reported Past Surgical History: Appendectomy, Back Surgery, Bladder Surgery, Bowel Resection Additional Past Surgical History / Comment(s): Back surg x10, colonoscopy, colostomy 07/2020, liver biopsy, port placement,. colostomy revision 10/19/20, 12/12/20,02/27/21 Past Anesthesia/Blood Transfusion Reactions: Previous Problems w/ Anesthesia, Motion Sickness, Postoperative Nausea & Vomiting (PONV) Additional Past Anesthesia/Blood Transfusion Reaction / Comment(s): no hx blood transfusion;. "seems to take a long time to get out of my system" Past Psychological History: Anxiety Smoking Status: Former smoker Past Alcohol Use History: None Reported Past Drug Use History: None Reported - Past Family History Mother Family Medical History: No Reported History General Exam Limitations: no limitations Course Vital Signs 03/20/21 03/20/21 20:14 22:16 Temperature 97.9 F Pulse Rate 111 H 96 Respiratory 16 16 Rate Blood Pressure 84/56 93/68 O2 Sat by Pulse 94 L 95 Oximetry Medical Decision Making - Lab Data Result diagrams: 03/20/21 21:23 03/20/21 21:23 Lab Results 03/20/21 03/20/21 03/20/21 Range/Units 21:23 21:23 21:23 WBC 26.2 H (3.8-10.6) k/uL RBC 3.65 L (4.30-5.90) m/uL Hgb 10.3 L (13.0-17.5) gm/dL Hct 32.6 L (39.0-53.0) % MCV 89.2 (80.0-100.0) fL MCH 28.2 (25.0-35.0) pg MCHC 31.6 (31.0-37.0) g/dL RDW 16.8 H (11.5-15.5) % Plt Count 91 L (150-450) k/uL MPV 9.7 Neutrophils % 89 % Lymphocytes % 4 % Monocytes % 6 % Eosinophils % 0 % Basophils % 0 % Neutrophils # 23.2 H (1.3-7.7) k/uL Lymphocytes # 0.9 L (1.0-4.8) k/uL Monocytes # 1.7 H (0-1.0) k/uL Eosinophils # 0.1 (0-0.7) k/uL Basophils # 0.0 (0-0.2) k/uL Manual Slide Review Performed Hypersegmented Neuts Present Hypochromasia Marked Poikilocytosis Slight Anisocytosis Slight PT 14.3 H (9.0-12.0) sec INR 1.4 H (<1.2) APTT 23.3 (22.0-30.0) sec Sodium 130 L (137-145) mmol/L Potassium 4.5 (3.5-5.1) mmol/L Chloride 93 L (98-107) mmol/L Carbon Dioxide 32 H (22-30) mmol/L Anion Gap 5 mmol/L BUN 29 H (9-20) mg/dL Creatinine 0.67 (0.66-1.25) mg/dL Est GFR (CKD-EPI)AfAm >90 (>60 ml/min/1.73 sqM) Est GFR (CKD-EPI)NonAf >90 (>60 ml/min/1.73 sqM) Glucose 90 (74-99) mg/dL Plasma Lactic Acid Tam (0.7-2.0) mmol/L Calcium 12.4 H (8.4-10.2) mg/dL Ionized Calcium Ally 7.1 H* (4.5-5.3) mg/dL Magnesium 2.2 (1.6-2.3) mg/dL Total Bilirubin 1.7 H (0.2-1.3) mg/dL AST 197 H (17-59) U/L ALT 69 H (4-49) U/L Alkaline Phosphatase 764 H (38-126) U/L Total Protein 4.7 L (6.3-8.2) g/dL Albumin 2.1 L (3.5-5.0) g/dL 03/20/21 Range/Units 21:23 WBC (3.8-10.6) k/uL RBC (4.30-5.90) m/uL Hgb (13.0-17.5) gm/dL Hct (39.0-53.0) % MCV (80.0-100.0) fL MCH (25.0-35.0) pg MCHC (31.0-37.0) g/dL RDW (11.5-15.5) % Plt Count (150-450) k/uL MPV Neutrophils % % Lymphocytes % % Monocytes % % Eosinophils % % Basophils % % Neutrophils # (1.3-7.7) k/uL Lymphocytes # (1.0-4.8) k/uL Monocytes # (0-1.0) k/uL Eosinophils # (0-0.7) k/uL Basophils # (0-0.2) k/uL Manual Slide Review Hypersegmented Neuts Hypochromasia Poikilocytosis Anisocytosis PT (9.0-12.0) sec INR (<1.2) APTT (22.0-30.0) sec Sodium (137-145) mmol/L Potassium (3.5-5.1) mmol/L Chloride (98-107) mmol/L Carbon Dioxide (22-30) mmol/L Anion Gap mmol/L BUN (9-20) mg/dL Creatinine (0.66-1.25) mg/dL Est GFR (CKD-EPI)AfAm (>60 ml/min/1.73 sqM) Est GFR (CKD-EPI)NonAf (>60 ml/min/1.73 sqM) Glucose (74-99) mg/dL Plasma Lactic Acid Tam 2.0 (0.7-2.0) mmol/L Calcium (8.4-10.2) mg/dL Ionized Calcium Ally (4.5-5.3) mg/dL Magnesium (1.6-2.3) mg/dL Total Bilirubin (0.2-1.3) mg/dL AST (17-59) U/L ALT (4-49) U/L Alkaline Phosphatase (38-126) U/L Total Protein (6.3-8.2) g/dL Albumin (3.5-5.0) g/dL Disposition Clinical Impression: Hypercalcemia, Weakness, Dehydration Disposition: ADMITTED IP TO THIS HOSP Condition: Fair
[2021-03-20 21:36] LABS: Anisocytosis Slight; Basophils % (A) 0 %; Eosinophils # (A) 0.1 k/uL (0-0.7); Eosinophils % (A) 0 %; HCT 32.6 % (39.0-53.0); HGB 10.3 gm/dL (13.0-17.5); Hypochromasia Marked; Lymphocytes # (A) 0.9 k/uL (1.0-4.8); Lymphocytes % (A) 4 %; MCH 28.2 pg (25.0-35.0); MCHC 31.6 g/dL (31.0-37.0); MCV 89.2 fL (80.0-100.0); Mean Platelet Volume 9.7; Monocytes # (A) 1.7 k/uL (0-1.0); Monocytes % (A) 6 %; Neutrophils # (A) 23.2 k/uL (1.3-7.7); Neutrophils % (A) 89 %; Poikilocytosis Slight; RBC 3.65 m/uL (4.30-5.90); RDW 16.8 % (11.5-15.5); WBC 26.2 k/uL (3.8-10.6)
--- NOTE | 2021-03-20 21:41 | XR ---
EXAMINATION TYPE: XR chest 1V portable DATE OF EXAM: 03/20/2021 COMPARISON: 03/11/2021 HISTORY: Fall. Pain TECHNIQUE: Single view FINDINGS: Heart and mediastinum are normal. Lungs are clear of infiltrate. There is right central musa ous catheter with tip in the superior vena cava. There is no pleural effusion. Bony thorax is intact. IMPRESSION: No active cardiopulmonary disease. No change.
--- NOTE | 2021-03-20 21:43 | XR ---
EXAMINATION TYPE: XR pelvis AP view DATE OF EXAM: 03/20/2021 COMPARISON: NONE HISTORY: Pain TECHNIQUE: Dual view FINDINGS: Pelvic ring is intact. Proximal femurs and hip joints are intact. Sacroiliac joints appear intact. There is laminectomy defect in the lower lumbar spine. IMPRESSION: Negative exam. No fracture.
--- NOTE | 2021-03-20 21:44 | XR ---
EXAMINATION TYPE: XR foot complete RT DATE OF EXAM: 03/20/2021 COMPARISON: NONE HISTORY: Foot pain TECHNIQUE: 3 views FINDINGS: There is mild hallux valgus. There is spurring at the first MP joint. There is plantar calc aneal spurring. I see no fracture nor dislocation. IMPRESSION: Calcaneal spurring. No fracture seen.
[2021-03-20 21:45] LABS: INR 1.4 (<1.2); Partial Thromboplastin Time 23.3 sec (22.0-30.0); Prothrombin Time 14.3 sec (9.0-12.0)
[2021-03-20 21:47] LABS: Ionized Calcium 7.1 mg/dL (4.5-5.3)
[2021-03-20 22:06] LABS: Hypersegmented Neutrophils Present; Platelet Count 91 k/uL (150-450)
[2021-03-20 22:08] LABS: ALT 69 U/L (4-49); AST 197 U/L (17-59); African American GFR (CKD) >90 (>60 ml/min/1.73 sqM); Albumin 2.1 g/dL (3.5-5.0); Alkaline Phosphatase 764 U/L (38-126); Anion Gap 5 mmol/L; Blood Urea Nitrogen 29 mg/dL (9-20); Calcium 12.4 mg/dL (8.4-10.2); Carbon Dioxide 32 mmol/L (22-30); Chloride 93 mmol/L (98-107); Glucose 90 mg/dL (74-99); Magnesium 2.2 mg/dL (1.6-2.3); Non-African American GFR(CKD) >90 (>60 ml/min/1.73 sqM); Potassium 4.5 mmol/L (3.5-5.1); Sodium 130 mmol/L (137-145); Total Bilirubin 1.7 mg/dL (0.2-1.3); Total Protein 4.7 g/dL (6.3-8.2)
[2021-03-20] MEDS ORDERED: VANCOMYCIN IV PER PHARMACY 1 EACH MISC MISCELLANE PRN (22:20)
[2021-03-20] MEDS ORDERED: ONDANSETRON 4 MG/2 ML VIAL IVP PRN (22:21)
[2021-03-20] MEDS ORDERED: ACETAMINOPHEN TAB 325 MG TAB PO PRN (22:21)
[2021-03-20] MEDS ORDERED: NALOXONE 0.4 MG/ML 1 ML VIAL IV PRN (22:21)
--- NOTE | 2021-03-20 22:37 | CT ---
EXAMINATION TYPE: CT brain mini byrd con DATE OF EXAM: 03/20/2021 COMPARISON: None HISTORY: Fall, hit back of head, hx pancreatic ca CT DLP: 1404.7 mGycm Automated exposure control for dose reduction was used. There is mild cerebral atrophy. There is no mass effect nor midline shift. There is no sign of intrac ranial hemorrhage. Calvarium is intact. Skull base is intact. There is normal aeration of the mastoid sinuses. There is mild straightening of the cervical spine. There is a few millimeter anterior subluxation of C3 in relation to C4. Posterior elements are intact. There is some hypertrophic facet arthropathy at C3-4. There is no compression fracture. There are multilevel spondylotic changes with spurring of the endplates in the mid and lower cervical spine. IMPRESSION: Mild cerebral atrophy. No acute intracranial abnormality. Spondylotic changes in the cervical spine. Degenerative subluxation at C3-4. No fracture seen.
--- NOTE | 2021-03-20 22:52 | XR ---
EXAMINATION TYPE: XR ankle complete LT DATE OF EXAM: 03/20/2021 COMPARISON: NONE HISTORY: Fall. Pain TECHNIQUE: 3 views FINDINGS: Ankle mortise is anatomic. There is plantar calcaneal spurring. I see no fracture nor dislo cation. IMPRESSION: Calcaneal spurring. No fracture seen.
[2021-03-20] MEDS ORDERED: VANCOMYCIN 1,500 MG in SODIUM CHLORIDE 0.9% 250 ML IVPB ONE (23:00)
[2021-03-20] MEDS: SODIUM CHLORIDE 0.9% 1,000 ML IV SCH (23:47)
[2021-03-21] MEDS ORDERED: HYDROcodone/APAP 10-325MG 1 EACH TAB PO PRN (00:45)
[2021-03-21] MEDS ORDERED: SODIUM CHLORIDE 0.9% 500 ML 500 ML IV ONE (00:47)
[2021-03-21] MEDS ORDERED: polyethylene glycoL 3350 17 GM POWD.PACK PO PRN (01:00)
[2021-03-21] MEDS ORDERED: ONDANSETRON ODT 4 MG TAB PO PRN (01:00)
[2021-03-21] MEDS: MORPHINE SULFATE ER 60 MG TABLET PO SCH ×3 (01:21→16:21)
[2021-03-21 05:09] LABS: Anisocytosis Slight; Basophils % (A) 0 %; Eosinophils # (A) 0.1 k/uL (0-0.7); Eosinophils % (A) 1 %; HCT 34.7 % (39.0-53.0); HGB 10.9 gm/dL (13.0-17.5); Hypochromasia Marked; Lymphocytes # (A) 0.9 k/uL (1.0-4.8); Lymphocytes % (A) 5 %; MCH 28.4 pg (25.0-35.0); MCHC 31.4 g/dL (31.0-37.0); MCV 90.3 fL (80.0-100.0); Mean Platelet Volume 8.9; Monocytes # (A) 1.2 k/uL (0-1.0); Monocytes % (A) 6 %; Neutrophils # (A) 16.8 k/uL (1.3-7.7); Neutrophils % (A) 86 %; Poikilocytosis Slight; RBC 3.85 m/uL (4.30-5.90); RDW 16.6 % (11.5-15.5); WBC 19.5 k/uL (3.8-10.6)
[2021-03-21 05:25] LABS: Platelet Count 78 k/uL (150-450)
[2021-03-21 05:37] LABS: African American GFR (CKD) >90 (>60 ml/min/1.73 sqM); Anion Gap 5 mmol/L; Blood Urea Nitrogen 29 mg/dL (9-20); Calcium 12.2 mg/dL (8.4-10.2); Carbon Dioxide 29 mmol/L (22-30); Chloride 97 mmol/L (98-107); Glucose 88 mg/dL (74-99); Non-African American GFR(CKD) >90 (>60 ml/min/1.73 sqM); Potassium 4.7 mmol/L (3.5-5.1); Sodium 131 mmol/L (137-145)
[2021-03-21] MEDS: DOCUSATE 100 MG CAP PO SCH ×3 (08:23→21:53)
[2021-03-21] MEDS: TAMSULOSIN 0.4 MG CAP.ER.24H PO SCH (08:23)
[2021-03-21] MEDS ORDERED: VANCOMYCIN 1,250 MG in SODIUM CHLORIDE 0.9% 250 ML IVPB SCH (09:00)
[2021-03-21] MEDS ORDERED: LIDOCAINE-PRILOCAINE 2.5-2.5% CREAM 5 GM TUBE TOPICAL PRN (09:00)
[2021-03-21] MEDS ORDERED: MECLIZINE 25 MG TAB PO PRN (09:00)
[2021-03-21] MEDS ORDERED: PROCHLORPERAZINE 10 MG TAB PO PRN (09:00)
--- NOTE | 2021-03-21 11:44 | P.HPIM ---
History of Present Illness Patient is a pleasant 60-year-old male came in after fall generalized weakness patient was having multiple falls. Patient underwent multiple imaging studies all of which are negative. Patient is also found to have leukocytosis with no evidence of infection at this time patient UA is not available at this time. Patient had x-ray did not show any pneumonia patient denied any UTI-like symptoms. Patient has advanced stage IV pancreatic cancer hospice was contemplated at one point of time. Patient cannot tell me when his last chemotherapy was. was really doesn't have any fever chills. Leukocytosis improving patient received vancomycin and inferior source of infection because of which were Vanco mycin is being discontinued at this time. Patient is also hyponatremic probably because of hyperemia patient is receiving IV fluids at this time. Also found to have highly elevated ionized calcium of 7.1. Patient may have mild confusion secondary to that patient is bit slow alert oriented 3 patient does have elevated liver enzymes. REVIEW OF SYSTEMS: CONSTITUTIONAL: No fever, no malaise, no fatigue. HEENT: No recent visual problems or hearing problems. Denied any sore throat. CARDIOVASCULAR: No chest pain, orthopnea, PND, no palpitations, no syncope. PULMONARY: No shortness of breath, no cough, no hemoptysis. GASTROINTESTINAL: No diarrhea, no nausea, no vomiting, no abdominal pain. NEUROLOGICAL: No headaches, no weakness, no numbness. HEMATOLOGICAL: Denies any bleeding or petechiae. GENITOURINARY: Denies any burning micturition, frequency, or urgency. MUSCULOSKELETAL/RHEUMATOLOGICAL: Denies any joint pain, swelling, or any muscle pain. ENDOCRINE: Denies any polyuria or polydipsia. The rest of the 14-point review of systems is negative. PHYSICAL EXAMINATION: GENERAL: The patient is alert and oriented x3, not in any acute distress. Well developed, well nourished. HEENT: Pupils are round and equally reacting to light. EOMI. No scleral icterus. No conjunctival pallor. Normocephalic, atraumatic. No pharyngeal erythema. No thyromegaly. CARDIOVASCULAR: S1 and S2 present. No murmurs, rubs, or gallops. PULMONARY: Chest is clear to auscultation, no wheezing or crackles. ABDOMEN: Soft, nontender, nondistended, normoactive bowel sounds. No palpable organomegaly. MUSCULOSKELETAL: No joint swelling or deformity. EXTREMITIES: No cyanosis, clubbing, or pedal edema. NEUROLOGICAL: Gross neurological examination did not reveal any focal deficits. N 3 but appears to be confused significant generalized weakness. SKIN: No rashes. Assessment and plan -Hypercalcemia secondary to cancer and patient will be continued on IV fluids, we'll repeat calcium tomorrow. Patient has mild but will consult encephalopathy probably from hypercalcemia. She will be given IV pamidronate, patient's creatinine is within normal limits. -Generalized weakness and falls secondary to cancer no evidence of infection at this time, physical there were no question that we will evaluate the patient further is probably more appropriate for hospice. Oncology was consulted further further management regarding the overall goals of care and cancer as per oncology next and heparin pancreatic cancer supple DKA patient pain is well- controlled at this time -Oral thrush for which patient is receiving nystatin -"Cytosis secondary to pancreatic cancer in see any evidence of infection Vanco mycin will be discontinued -Hypovolemic hyponatremia secondary to hypercalcemia, continue with IV fluids of previous metabolic profile tomorrow -I prerenal -Hypertension DVT prophylaxis: Lovenox Past Medical History Past Medical History: Cancer, Hyperlipidemia, Hypertension, Osteoarthritis (OA), Prostate Disorder Additional Past Medical History / Comment(s): BPH, arthritis, 07/2020 pancreatic cancer with mets to liver and lung - has colostomy, mediport for chemo w/ weekly tx. Multiple colostomy prolapses History of Any Multi-Drug Resistant Organisms: None Reported Past Surgical History: Appendectomy, Back Surgery, Bladder Surgery, Bowel Resection Additional Past Surgical History / Comment(s): Back surg x10, colonoscopy, colostomy 07/2020, liver biopsy, port placement,. colostomy revision 10/19/20, 12/12/20,02/27/21 Past Anesthesia/Blood Transfusion Reactions: Previous Problems w/ Anesthesia, Motion Sickness, Postoperative Nausea & Vomiting (PONV) Additional Past Anesthesia/Blood Transfusion Reaction / Comment(s): no hx blood transfusion;. "seems to take a long time to get out of my system" Past Psychological History: Anxiety Smoking Status: Former smoker Past Alcohol Use History: None Reported Past Drug Use History: None Reported - Past Family History Mother Family Medical History: No Reported History Medications and Allergies Home Medications Medication Instructions Recorded Confirmed Type Docusate [Colace] 100 mg PO TID 09/24/20 03/20/21 History HYDROcodone/APAP 10-325MG [[place] 1 tab PO Q4HR PRN 09/24/20 03/20/21 History 10-325] HYDROmorphone [Dilaudid] 4 mg PO Q4H PRN 09/24/20 03/20/21 History Omeprazole 20 mg PO HS 09/24/20 03/20/21 History Prochlorperazine [Compazine] 10 mg PO Q8H PRN 09/24/20 03/20/21 History Propranolol HCl 80 mg PO BID 09/24/20 03/20/21 History Tamsulosin [Flomax] 0.4 mg PO QAM 09/24/20 03/20/21 History Morphine Sulfate [Ms Contin] 60 mg PO Q8H 10/10/20 03/20/21 History Benazepril HCl 20 mg PO QAM 10/15/20 03/20/21 History Lidocaine-Prilocaine Cream [Emla 1 applic TOPICAL DIRECTED PRN 10/15/20 03/20/21 History Cream 2.5%/2.5%] Meclizine HCl [Bonine Chew] 25 mg PO TID PRN 10/15/20 03/20/21 History ondansetron HCL [Zofran] 8 mg PO Q8HR PRN 10/15/20 03/20/21 History ALPRAZolam [Xanax] 0.25 mg PO TID PRN 10/17/20 03/20/21 History polyethylene glycoL 3350 [Miralax] 17 gm PO DAILY PRN 02/22/21 03/20/21 History Amoxicillin/Potassium Clav 1 tab PO Q12HR 5 Days #10 tab 03/16/21 03/20/21 Rx [Augmentin 875-125 Tablet] Allergies Allergy/AdvReac Type Severity Reaction Status Date / Time No Known Allergies Allergy Verified 03/20/21 22:03 Physical Exam Vitals: Vital Signs Temp Pulse Pulse Resp BP BP BP 03/21/21 08:25 94 16 94/61 03/21/21 05:47 98.0 F 96 20 113/72 03/20/21 23:38 97.5 F L 93 20 101/67 03/20/21 22:16 96 16 93/68 03/20/21 20:14 97.9 F 111 H 16 84/56 Pulse Ox 03/21/21 08:25 93 L 03/21/21 05:47 95 03/20/21 23:38 95 03/20/21 22:16 95 03/20/21 20:14 94 L Intake and Output 03/20/21 03/21/21 03/21/21 22:59 06:59 14:59 Intake Total 350 120 Output Total 600 Balance -250 120 Intake: Oral 350 120 Output: Urine 200 Stool 400 Other: Weight 68.492 kg Results CBC & Chem 7: 03/21/21 04:27 03/21/21 04:27 Labs: Abnormal Lab Results - Last 24 Hours (Table) 03/20/21 03/20/21 03/20/21 Range/Units 21:23 21:23 21:23 WBC 26.2 H (3.8-10.6) k/uL RBC 3.65 L (4.30-5.90) m/uL Hgb 10.3 L (13.0-17.5) gm/dL Hct 32.6 L (39.0-53.0) % RDW 16.8 H (11.5-15.5) % Plt Count 91 L (150-450) k/uL Neutrophils # 23.2 H (1.3-7.7) k/uL Lymphocytes # 0.9 L (1.0-4.8) k/uL Monocytes # 1.7 H (0-1.0) k/uL PT 14.3 H (9.0-12.0) sec INR 1.4 H (<1.2) Sodium 130 L (137-145) mmol/L Chloride 93 L (98-107) mmol/L Carbon Dioxide 32 H (22-30) mmol/L BUN 29 H (9-20) mg/dL Creatinine (0.66-1.25) mg/dL Calcium 12.4 H (8.4-10.2) mg/dL Ionized Calcium Ally 7.1 H* (4.5-5.3) mg/dL Total Bilirubin 1.7 H (0.2-1.3) mg/dL AST 197 H (17-59) U/L ALT 69 H (4-49) U/L Alkaline Phosphatase 764 H (38-126) U/L Total Protein 4.7 L (6.3-8.2) g/dL Albumin 2.1 L (3.5-5.0) g/dL 03/21/21 03/21/21 Range/Units 04:27 04:27 WBC 19.5 H (3.8-10.6) k/uL RBC 3.85 L (4.30-5.90) m/uL Hgb 10.9 L (13.0-17.5) gm/dL Hct 34.7 L (39.0-53.0) % RDW 16.6 H (11.5-15.5) % Plt Count 78 L (150-450) k/uL Neutrophils # 16.8 H (1.3-7.7) k/uL Lymphocytes # 0.9 L (1.0-4.8) k/uL Monocytes # 1.2 H (0-1.0) k/uL PT (9.0-12.0) sec INR (<1.2) Sodium 131 L (137-145) mmol/L Chloride 97 L (98-107) mmol/L Carbon Dioxide (22-30) mmol/L BUN 29 H (9-20) mg/dL Creatinine 0.62 L (0.66-1.25) mg/dL Calcium 12.2 H (8.4-10.2) mg/dL Ionized Calcium Alyl (4.5-5.3) mg/dL Total Bilirubin (0.2-1.3) mg/dL AST (17-59) U/L ALT (4-49) U/L Alkaline Phosphatase (38-126) U/L Total Protein (6.3-8.2) g/dL Albumin (3.5-5.0) g/dL
[2021-03-21 11:58] LABS: Appearance,Urine Clear (Clear); Bilirubin,Urine Negative (Negative); Blood,Urine Negative (Negative); Color,Urine Yellow; Glucose,Urine (UA) Negative (Negative); Ketones,Urine 1+ (Negative); Leukocyte Esterase,Urine Negative (Negative); Nitrite,Urine Negative (Negative); PH, Urine 5.5 (5.0-8.0); Protein,Urine Trace (Negative); Urobilinogen,Urine <2.0 mg/dL (<2.0)
[2021-03-21] MEDS ORDERED: SODIUM CHLORIDE 0.9% 250 ML with PAMIDRONATE 60 MG IV ONE ×2 (12:00)
[2021-03-21] MEDS: SALT AND SODA MOUTHWASH 1,000 ML PO SCH ×3 (12:30→21:53)
[2021-03-21] MEDS: SODIUM CHLORIDE 0.9% 1,000 ML IV SCH ×2 (12:30→21:53)
[2021-03-21] MEDS: NYSTATIN 100,000 UNIT/ML SUSP 500,000 UNIT/5 ML CUP PO SCH ×3 (12:30→21:53)
[2021-03-21] MEDS: ENOXAPARIN 40 MG/0.4 ML SYRINGE SQ SCH (12:30)
--- NOTE | 2021-03-21 17:48 | P.CONS ---
History of Present Illness - Reason for Consult Consult date: 03/21/21 pancreatic adenocarcinoma Requesting physician: Nixon Ashby - Chief Complaint weakness, fall - History of Present Illness Pt initially presented to [facility] with chest & back pain, CT chest revealed pancreatic body mass, multiple small lung lesions and innumerable hepatic lesions, CT guided biopsy of liver lesion on 07/17/2020 revealed metastatic adencarcinoma C/W pancreatic primary. He was started on palliative FOLFIRINOX chemotherapy but tolerated poorly. His PS started to decline so he moved in with daughter in [place] area, seen by Dr. Johansen to establish care closer to current place of residence. In September 2020 he had severe reaction to FOLFIRINOX chemotherapy infusion, total of 3 1/2 cycles, changed to gemzar and abraxane. He tolerated well and had decrease in Ca 19.9. He is s/p 4 cycles, treatment recently stopped due to CT progression and increasing Ca 19.9. He just saw Dr. Johansen in the office 2 days ago and was offered salvage xeloda or hospice, he wanted to give the xeloda a try, waiting for drug to be processed. Pt barely remembers that conversation. He states that he has had diarrhea the 1-2 weeks, having to empty ostomy more freq, watery stool, denied blood, cramping or abd pain. He has been falling for the last week, he hit his head and family felt he needed to be seen. He feels better then on admit, he was given abx and fluids. Bilirubin and Ca++ elevated, possible underlying infection. Denies fever, his mouth is dry, nothing tastes good, no nausea, vomiting, cough, chest pain, dysuria, swelling or rash. Review of Systems 10 point ROS is neg Past Medical History Past Medical History: Cancer, Hyperlipidemia, Hypertension, Osteoarthritis (OA), Prostate Disorder Additional Past Medical History / Comment(s): BPH, arthritis, 07/2020 pancreatic cancer with mets to liver and lung - has colostomy, mediport for chemo w/ weekly tx. Multiple colostomy prolapses History of Any Multi-Drug Resistant Organisms: None Reported Past Surgical History: Appendectomy, Back Surgery, Bladder Surgery, Bowel Resection Additional Past Surgical History / Comment(s): Back surg x10, colonoscopy, colostomy 07/2020, liver biopsy, port placement,. colostomy revision 10/19/20, 12/12/20,02/27/21 Past Anesthesia/Blood Transfusion Reactions: Previous Problems w/ Anesthesia, Motion Sickness, Postoperative Nausea & Vomiting (PONV) Additional Past Anesthesia/Blood Transfusion Reaction / Comm: no hx blood transfusion;. "seems to take a long time to get out of my system" Past Psychological History: Anxiety Smoking Status: Former smoker (35 yr pk Hx, quit 2015) Past Alcohol Use History: None Reported Past Drug Use History: None Reported - Past Family History Mother Family Medical History: No Reported History Medications and Allergies Home Medications Medication Instructions Recorded Confirmed Type Docusate [Colace] 100 mg PO TID 09/24/20 03/20/21 History HYDROcodone/APAP 10-325MG [[place] 1 tab PO Q4HR PRN 09/24/20 03/20/21 History 10-325] HYDROmorphone [Dilaudid] 4 mg PO Q4H PRN 09/24/20 03/20/21 History Omeprazole 20 mg PO HS 09/24/20 03/20/21 History Prochlorperazine [Compazine] 10 mg PO Q8H PRN 09/24/20 03/20/21 History Propranolol HCl 80 mg PO BID 09/24/20 03/20/21 History Tamsulosin [Flomax] 0.4 mg PO QAM 09/24/20 03/20/21 History Morphine Sulfate [Ms Contin] 60 mg PO Q8H 10/10/20 03/20/21 History Benazepril HCl 20 mg PO QAM 10/15/20 03/20/21 History Lidocaine-Prilocaine Cream [Emla 1 applic TOPICAL DIRECTED PRN 10/15/20 03/20/21 History Cream 2.5%/2.5%] Meclizine HCl [Bonine Chew] 25 mg PO TID PRN 10/15/20 03/20/21 History ondansetron HCL [Zofran] 8 mg PO Q8HR PRN 10/15/20 03/20/21 History ALPRAZolam [Xanax] 0.25 mg PO TID PRN 10/17/20 03/20/21 History polyethylene glycoL 3350 [Miralax] 17 gm PO DAILY PRN 02/22/21 03/20/21 History Amoxicillin/Potassium Clav 1 tab PO Q12HR 5 Days #10 tab 03/16/21 03/20/21 Rx [Augmentin 875-125 Tablet] Allergies Allergy/AdvReac Type Severity Reaction Status Date / Time No Known Allergies Allergy Verified 03/20/21 22:03 Physical Exam Vitals: Vital Signs Temp Pulse Pulse Resp BP BP BP 03/21/21 08:25 94 16 94/61 03/21/21 05:47 98.0 F 96 20 113/72 03/20/21 23:38 97.5 F L 93 20 101/67 03/20/21 22:16 96 16 93/68 03/20/21 20:14 97.9 F 111 H 16 84/56 Pulse Ox 03/21/21 08:25 93 L 03/21/21 05:47 95 03/20/21 23:38 95 03/20/21 22:16 95 03/20/21 20:14 94 L Intake and Output 03/20/21 03/21/21 03/21/21 22:59 06:59 14:59 Intake Total 350 Output Total 600 Balance -250 Intake: Oral 350 Output: Urine 200 Stool 400 Other: Weight 68.492 kg - Constitutional General appearance: average body habitus, cooperative, no acute distress - EENT dry mouth, severely coated tongue Eyes: anicteric sclerae, EOMI ENT: hearing grossly normal, thrush - Neck Neck: no lymphadenopathy - Respiratory Respiratory: bilateral: CTA, diminished - Cardiovascular Rhythm: regular Heart sounds: normal: S1, S2 Abnormal Heart Sounds: no systolic murmur, no diastolic murmur, no rub, no S3 Gallop, no S4 Gallop, no click, no other leg Peripheral Edema: bilateral: None - Gastrointestinal epigastric fullness General gastrointestinal: soft - Integumentary Integumentary: pale - Neurologic Neurologic: CNII-XII intact - Musculoskeletal Musculoskeletal: generalized weakness - Psychiatric Psychiatric: A&O x's 3, appropriate affect, intact judgment & insight Results CBC & Chem 7: 03/21/21 04:27 03/21/21 04:27 Labs: Abnormal Lab Results - Last 24 Hours (Table) 03/20/21 03/20/21 03/20/21 Range/Units 21:23 21:23 21:23 WBC 26.2 H (3.8-10.6) k/uL RBC 3.65 L (4.30-5.90) m/uL Hgb 10.3 L (13.0-17.5) gm/dL Hct 32.6 L (39.0-53.0) % RDW 16.8 H (11.5-15.5) % Plt Count 91 L (150-450) k/uL Neutrophils # 23.2 H (1.3-7.7) k/uL Lymphocytes # 0.9 L (1.0-4.8) k/uL Monocytes # 1.7 H (0-1.0) k/uL PT 14.3 H (9.0-12.0) sec INR 1.4 H (<1.2) Sodium 130 L (137-145) mmol/L Chloride 93 L (98-107) mmol/L Carbon Dioxide 32 H (22-30) mmol/L BUN 29 H (9-20) mg/dL Creatinine (0.66-1.25) mg/dL Calcium 12.4 H (8.4-10.2) mg/dL Ionized Calcium Ally 7.1 H* (4.5-5.3) mg/dL Total Bilirubin 1.7 H (0.2-1.3) mg/dL AST 197 H (17-59) U/L ALT 69 H (4-49) U/L Alkaline Phosphatase 764 H (38-126) U/L Total Protein 4.7 L (6.3-8.2) g/dL Albumin 2.1 L (3.5-5.0) g/dL 03/21/21 03/21/21 Range/Units 04:27 04:27 WBC 19.5 H (3.8-10.6) k/uL RBC 3.85 L (4.30-5.90) m/uL Hgb 10.9 L (13.0-17.5) gm/dL Hct 34.7 L (39.0-53.0) % RDW 16.6 H (11.5-15.5) % Plt Count 78 L (150-450) k/uL Neutrophils # 16.8 H (1.3-7.7) k/uL Lymphocytes # 0.9 L (1.0-4.8) k/uL Monocytes # 1.2 H (0-1.0) k/uL PT (9.0-12.0) sec INR (<1.2) Sodium 131 L (137-145) mmol/L Chloride 97 L (98-107) mmol/L Carbon Dioxide (22-30) mmol/L BUN 29 H (9-20) mg/dL Creatinine 0.62 L (0.66-1.25) mg/dL Calcium 12.2 H (8.4-10.2) mg/dL Ionized Calcium Ally (4.5-5.3) mg/dL Total Bilirubin (0.2-1.3) mg/dL AST (17-59) U/L ALT (4-49) U/L Alkaline Phosphatase (38-126) U/L Total Protein (6.3-8.2) g/dL Albumin (3.5-5.0) g/dL Comments: xray reports reviewed, no fractures Assessment and Plan (1) Hypercalcemia Narrative/Plan: Unclear of cause. PTH ordered. Aredia ordered. Pt is receiving fluids. Check lab in AM Current Visit: Yes Status: Acute Priority: High Code(s): E83.52 - HYPERCALCEMIA SNOMED Code(s): 24005317 (2) Weakness Narrative/Plan: 2/2 malignancy, hypercalcemia, possible infection. Treat underlying causes. PT/OT Current Visit: Yes Status: Acute Priority: High Code(s): R53.1 - WEAKNESS SNOMED Code(s): 97152836 (3) Pancreatic cancer Narrative/Plan: Recent disease progression. Offered salvage chemo vs hospice. Pt would like to try the oral medication, pending ins approval and delivery of drug. Current condition is most likely r/t malignancy. Pt PS is poor. Hospice is appropriate but, he wanted to try Xeloda. Will see how he recuperates from his current illness. If unable to recuperate adequately pt will not be a candidate for any further treatment and unfortunately hospice will be the only option for care. Will f/u. Current Visit: Yes Status: Chronic Priority: High Code(s): C25.9 - MALIGNANT NEOPLASM OF PANCREAS, UNSPECIFIED SNOMED Code(s): 576220647 (4) Thrush Narrative/Plan: Oral suspension nystatin ordered for treatment Current Visit: Yes Status: Acute Priority: High Code(s): B37.0 - CANDIDAL STOMATITIS SNOMED Code(s): 72521091 Plan: Pt reporting watery diarrhea, will send for C&S and c-diff Doctor attests: I performed a history and physical examination of this patient, developed impression and plan of care, discussed with dictator. I agree with dictators note, documented as a scribe.
[2021-03-21] MEDS: PANTOPRAZOLE 40 MG TABLET PO SCH (21:53)
[2021-03-22] MEDS: SALT AND SODA MOUTHWASH 1,000 ML PO SCH ×5 (00:49→21:06)
[2021-03-22] MEDS: MORPHINE SULFATE ER 60 MG TABLET PO SCH ×3 (03:17→16:25)
[2021-03-22 07:40] LABS: African American GFR (CKD) >90 (>60 ml/min/1.73 sqM); Anion Gap 3 mmol/L; Blood Urea Nitrogen 30 mg/dL (9-20); Calcium 12.2 mg/dL (8.4-10.2); Carbon Dioxide 27 mmol/L (22-30); Chloride 98 mmol/L (98-107); Glucose 124 mg/dL (74-99); Non-African American GFR(CKD) >90 (>60 ml/min/1.73 sqM); Potassium 4.8 mmol/L (3.5-5.1); Sodium 128 mmol/L (137-145)
[2021-03-22] MEDS ORDERED: VANCOMYCIN TROUGH DUE 1 EACH MISC MISCELLANE ONE (08:00)
[2021-03-22] MEDS: DOCUSATE 100 MG CAP PO SCH ×3 (08:02→21:05)
[2021-03-22] MEDS: ENOXAPARIN 40 MG/0.4 ML SYRINGE SQ SCH (08:02)
[2021-03-22] MEDS: NYSTATIN 100,000 UNIT/ML SUSP 500,000 UNIT/5 ML CUP PO SCH ×4 (08:02→21:05)
[2021-03-22] MEDS: SODIUM CHLORIDE 0.9% 1,000 ML IV SCH ×2 (08:02→18:12)
[2021-03-22] MEDS: TAMSULOSIN 0.4 MG CAP.ER.24H PO SCH (08:02)
[2021-03-22 08:36] LABS: Anisocytosis Slight; HCT 34.2 % (39.0-53.0); HGB 10.3 gm/dL (13.0-17.5); Hypochromasia Marked; MCH 27.5 pg (25.0-35.0); MCV 91.7 fL (80.0-100.0); Mean Platelet Volume 8.5; Poikilocytosis Slight; RBC 3.73 m/uL (4.30-5.90); RDW 17.1 % (11.5-15.5); WBC 22.2 k/uL (3.8-10.6)
[2021-03-22 08:37] LABS: Platelet Count 49 k/uL (150-450)
[2021-03-22 14:08] VITALS: BMI 20.5
--- NOTE | 2021-03-22 16:39 | P.PN ---
Subjective Progress Note Date: 03/22/21 Principal diagnosis: weakness, falls, pancreatic adenocarcinoma, hypercalcemia Pt is not responsive to sternal rub Family and medical POA are at bedside Objective - Vital Signs Vital signs: Vital Signs Temp 97.3 F L 03/22/21 12:47 Pulse 107 H 03/22/21 12:47 Resp 16 03/22/21 12:47 BP 105/72 03/22/21 12:47 Pulse Ox 95 03/22/21 05:00 Intake & Output 03/21/21 03/22/21 03/22/21 18:59 06:59 18:59 Intake Total 700 200 Output Total 400 150 Balance 300 200 -150 Weight 68.492 kg Intake: Oral 700 200 Output: Urine 300 Stool 100 150 Other: Voiding Method Toilet Toilet Toilet Urinal Urinal Urinal # Voids 3 3 # Bowel Movements 2 3 - Constitutional General appearance: Present: average body habitus, no acute distress - Respiratory Respiratory: bilateral: CTA (resp are not labored) - Integumentary Integumentary: Present: pale - Neurologic Neurologic: Absent: CNII-XII intact, focal deficits - Musculoskeletal Musculoskeletal: Absent: gait normal, generalized weakness, strength equal bilaterally, right sided weakness, left sided weakness - Psychiatric Psychiatric: Absent: A&O x's 3, appropriate affect, intact judgment & insight - Labs CBC & Chem 7: 03/22/21 07:16 03/22/21 07:16 Labs: Abnormal Lab Results - Last 24 Hours (Table) 03/21/21 03/22/21 03/22/21 Range/Units 04:27 07:16 07:16 WBC 22.2 H (3.8-10.6) k/uL RBC 3.73 L (4.30-5.90) m/uL Hgb 10.3 L (13.0-17.5) gm/dL Hct 34.2 L (39.0-53.0) % MCHC 30.0 L (31.0-37.0) g/dL RDW 17.1 H (11.5-15.5) % Plt Count 49 L (150-450) k/uL Sodium 128 L (137-145) mmol/L BUN 30 H (9-20) mg/dL Creatinine 0.58 L (0.66-1.25) mg/dL Glucose 124 H (74-99) mg/dL Calcium 12.2 H (8.4-10.2) mg/dL PTH Intact 6.8 L (14.0-72.0) pg/mL Microbiology - Last 24 Hours (Table) 03/21/21 04:27 Blood Culture - Preliminary Blood No Growth after 24 hours 03/21/21 04:27 Blood Culture - Preliminary Blood No Growth after 24 hours 03/21/21 13:30 Stool Culture - Preliminary Stool Assessment and Plan (1) Hypercalcemia Narrative/Plan: Unclear of cause. PTH low. 60mg of Aredia given with no decrease in Ca++ level. Cont fluids, Add calcitonin. Lab in AM Current Visit: Yes Status: Acute Priority: High Code(s): E83.52 - HYPERCALCEMIA SNOMED Code(s): 93808161 (2) Weakness Narrative/Plan: 2/2 malignancy, hypercalcemia, possible infection. Treat underlying causes. Pt is not responsive today Current Visit: Yes Status: Acute Priority: High Code(s): R53.1 - WEAKNESS SNOMED Code(s): 98433490 (3) Pancreatic cancer Narrative/Plan: Recent disease progression. Offered salvage chemo vs hospice. Pt wanted to try oral medication. Spoke with family and POA. Reviewed that current condition is most likely r/t malignancy as it the hypercalcemia. They do know that Pt PS is poor at baseline. They understand that despite giving med to lower Ca++ is did not come down-further suspicious that malignancy is likely progressing rapidly. Offered to try and treat with calcitonin for the next 24 hours. If there is not improvement in pt mental status and calcium then recommendation is going to be for Hospice care as he will not likely recuperate. They verbalized understanding and are in agreement with plan. Calcitonin Q 6 hours, Ca++ level in AM. Hospice if pt condition does not improve. Current Visit: Yes Status: Chronic Priority: High Code(s): C25.9 - MALIGNANT NEOPLASM OF PANCREAS, UNSPECIFIED SNOMED Code(s): 102787215 (4) Thrush Narrative/Plan: Oral suspension nystatin ordered for treatment. Current Visit: Yes Status: Acute Priority: High Code(s): B37.0 - CANDIDAL STOMATITIS SNOMED Code(s): 50031791 Plan: Pt reporting watery diarrhea, will send for C&S and x-jrro-s-diff neg Doctor attests: I performed a history and physical examination of this patient, developed impression and plan of care, discussed with dictator. I agree with dictators note, documented as a scribe. Time with Patient: Greater than 30
[2021-03-22] MEDS: CALCITONIN INJ 200 UNIT/ML (MDV) VIAL IM SCH (18:12)
--- NOTE | 2021-03-22 20:57 | PN ---
PROGRESS NOTE DATE OF SERVICE: 03/22/2021 This 60-year-old gentleman who was admitted with severe hypercalcemia is complaining of significant tiredness and weakness. No chest pain. No palpitations. No fever. The patient was started on calcitonin by Hematology/Oncology. No chest pain. No palpitations. No fever. The most recent calcium is 12.2. PHYSICAL EXAMINATION: Alert and oriented x2. Pulse is 124, blood pressure 115/74, respirations 16, temperature 97.7, pulse ox 94% on room air. HEENT: Conjunctivae normal. NECK: No jugular venous distention. CARDIOVASCULAR: S1, S2 muffled. RESPIRATION: Breath sounds diminished at the bases. A few scattered rhonchi. No crackles. ABDOMEN: Soft, nontender. LEGS: No edema. No swelling. NERVOUS SYSTEM: No focal deficit. LABS: WBC 22.2, hemoglobin 10.3. Sodium 128. ASSESSMENT: 1. Hypercalcemia secondary to malignancy. 2. Severe weakness, generalized weakness. 3. Oral thrush. 4. Pancreatic cancer. 5. Hypovolemic hyponatremia. 6. Hypertension. 7. Increased white count. 8. Anemia. 9. Thrombocytopenia condition. 10.NO CODE, NO CPR, NO VENT. RECOMMENDATIONS AND DISCUSSION: I recommend to continue current medications, continue symptomatic treatment. Continue with calcitonin. Monitor calcium closely. Continue with IV hydration. Prognosis guarded. Further recommendations to follow. MMODL / IJN: [id number] /
[2021-03-22] MEDS: PANTOPRAZOLE 40 MG TABLET PO SCH (21:05)
[2021-03-23] MEDS: MORPHINE SULFATE ER 60 MG TABLET PO SCH ×2 (01:17→08:41)
[2021-03-23] MEDS: SALT AND SODA MOUTHWASH 1,000 ML PO SCH ×3 (01:17→12:05)
[2021-03-23 03:45] LABS: Glucose,Whole Blood 176 mg/dL (75-99)
[2021-03-23] MEDS ORDERED: FUROSEMIDE 10 MG/ML 4 ML VIAL IV STA (03:58)
--- NOTE | 2021-03-23 05:07 | P.EN ---
A team note this patient has advanced pancreatic cancer, A team called for worsening mental status on exam , he seems to resist opening eyes, , does not follow commands. vital signs unremarkable except for sinus tachycardia, confirmed with EKG lung decrease breath sounds over right lower lung, otherwise no wheezing , or rhonchi heart, tachycardia no leg edema abd with functional colostomy , diffuse discomfort to deep palpation labs reviewed blood sugar 176 patient seems to be voluntary refusing to respond and interact, evidenced by resisting opening eyes , however he moves all 4 extremities spontaneously and purposefully reviewing notes, looks like there are plans to pursue hospice care discussion on 03/23/2021 blood work showed severe hypercalcemia , when corrected for low albumen , his calcium is about 14 hypercalcemia plan natriuresis with lasix injection and saline NS 0.9% @ 150 cc, with lasix IVP recheck CMP to look at liver enzymes , BUN and check Ammonia , and calcium level repeat calcium at 9 am continue care on the medical floor
[2021-03-23] MEDS: SODIUM CHLORIDE 0.9% 1,000 ML IV SCH (05:21)
[2021-03-23 05:35] VITALS: BP 107/69; RESP 28; TEMP 97.7
[2021-03-23] MEDS: CALCITONIN INJ 200 UNIT/ML (MDV) VIAL IM SCH (05:51)
[2021-03-23] MEDS ORDERED: MORPHINE SULFATE 2 MG/ML SYRINGE IVP PRN (07:10)
[2021-03-23] MEDS ORDERED: LORazepam 2 MG/ML INJ IV PRN (07:11)
[2021-03-23 08:40] LABS: AST 425 U/L (17-59); African American GFR (CKD) >90 (>60 ml/min/1.73 sqM); Albumin/Globulin Ratio 0.7; Alkaline Phosphatase 689 U/L (38-126); Anion Gap 13 mmol/L; Blood Urea Nitrogen 34 mg/dL (9-20); Calcium 11.4 mg/dL (8.4-10.2); Carbon Dioxide 17 mmol/L (22-30); Chloride 100 mmol/L (98-107); Globulin 2.7 g/dL; Glucose 151 mg/dL (74-99); Non-African American GFR(CKD) 83 (>60 ml/min/1.73 sqM); Potassium 5.1 mmol/L (3.5-5.1); Sodium 130 mmol/L (137-145); Total Bilirubin 2.3 mg/dL (0.2-1.3); Total Protein 4.7 g/dL (6.3-8.2)
[2021-03-23] MEDS: ENOXAPARIN 40 MG/0.4 ML SYRINGE SQ SCH (08:40)
[2021-03-23] MEDS: DOCUSATE 100 MG CAP PO SCH (08:40)
[2021-03-23] MEDS: NYSTATIN 100,000 UNIT/ML SUSP 500,000 UNIT/5 ML CUP PO SCH ×2 (08:41→12:18)
[2021-03-23] MEDS: TAMSULOSIN 0.4 MG CAP.ER.24H PO SCH (08:41)
[2021-03-23 08:52] LABS: ALT 117 U/L (4-49)
[2021-03-23] MEDS ORDERED: ACETAMINOPHEN SUPPOSITORY 650 MG SUPP RECTAL PRN (11:17)
[2021-03-23] MEDS ORDERED: ONDANSETRON 4 MG/2 ML VIAL IVP PRN (11:17)
[2021-03-23] MEDS ORDERED: MORPHINE SULFATE (100 MG/2 ML) 100 MG in SODIUM CHLORIDE 0.9% 100 ML IV SCH (11:30)
[2021-03-23] MEDS ORDERED: SCOPOLAMINE 1.5MG/72HR PATCH TRANSDERM SCH (12:00)
[2021-03-23 13:16] VITALS: PULSE 90
--- NOTE | 2021-03-23 14:47 | P.PN ---
Subjective Progress Note Date: 03/23/21 Event documented this am, A team. AMS, difficulty arouse. Objective - Vital Signs Vital signs: Vital Signs Temp 97.7 F 03/23/21 04:30 Pulse 90 03/23/21 08:15 Resp 28 H 03/23/21 08:15 BP 107/69 03/23/21 04:30 Pulse Ox 96 03/23/21 04:30 Intake & Output 03/22/21 03/23/21 03/23/21 18:59 06:59 18:59 Intake Total 200 Output Total 300 550 Balance -300 -350 Weight 68.492 kg Intake: Oral 200 Output: Stool 300 550 Other: Voiding Method Toilet Toilet Incontinent Urinal Urinal # Voids 1 0 # Bowel Movements 1 - Exam Telemedicine RN assist with exam. - Labs CBC & Chem 7: 03/22/21 07:16 03/23/21 08:08 Labs: Abnormal Lab Results - Last 24 Hours (Table) 03/23/21 03/23/21 03/23/21 Range/Units 03:43 05:34 08:08 Sodium 130 L (137-145) mmol/L Carbon Dioxide 17 L (22-30) mmol/L BUN 34 H (9-20) mg/dL Glucose 151 H (74-99) mg/dL POC Glucose (mg/dL) 176 H (75-99) mg/dL Calcium 11.4 H (8.4-10.2) mg/dL Total Bilirubin 2.3 H (0.2-1.3) mg/dL AST 425 H (17-59) U/L ALT 117 H (4-49) U/L Alkaline Phosphatase 689 H (38-126) U/L Ammonia 58 H (<30) umol/L Total Protein 4.7 L (6.3-8.2) g/dL Albumin 2.0 L (3.5-5.0) g/dL Microbiology - Last 24 Hours (Table) 03/21/21 04:27 Blood Culture - Preliminary Blood No Growth after 48 hours 03/21/21 04:27 Blood Culture - Preliminary Blood No Growth after 48 hours Assessment and Plan (1) Mental status, decreased Current Visit: Yes Status: Acute Code(s): R41.82 - ALTERED MENTAL STATUS, UNSPECIFIED SNOMED Code(s): 136646701 (2) Hypercalcemia Current Visit: Yes Status: Acute Priority: High Code(s): E83.52 - HYPERCALCEMIA SNOMED Code(s): 94257592 (3) Pancreatic cancer Current Visit: Yes Status: Chronic Priority: High Code(s): C25.9 - MALIGNANT NEOPLASM OF PANCREAS, UNSPECIFIED SNOMED Code(s): 799508558 (4) Leukocytosis Current Visit: No Status: Acute Code(s): D72.829 - ELEVATED WHITE BLOOD CELL COUNT, UNSPECIFIED SNOMED Code(s): 744800170
[2021-03-23 15:32] LABS: Anisocytosis Slight; Basophils # (A) 0.1 k/uL (0-0.2); Basophils % (A) 0 %; Eosinophils % (A) 0 %; HCT 41.9 % (39.0-53.0); HGB 11.7 gm/dL (13.0-17.5); Hypochromasia Marked; Lymphocytes # (A) 0.5 k/uL (1.0-4.8); Lymphocytes % (A) 1 %; MCHC 27.8 g/dL (31.0-37.0); Macrocytosis Slight; Mean Platelet Volume 12.8; Monocytes # (A) 1.9 k/uL (0-1.0); Monocytes % (A) 5 %; Neutrophils # (A) 39.8 k/uL (1.3-7.7); Neutrophils % (A) 94 %; Poikilocytosis Slight; RBC 4.31 m/uL (4.30-5.90); RDW 17.1 % (11.5-15.5); WBC 42.6 k/uL (3.8-10.6)
[2021-03-23 15:38] LABS: MCV 97.3 fL (80.0-100.0); Platelet Count 69 k/uL (150-450)
[2021-03-23 17:16] LABS: Poikilocytosis (M) Present; Polychromasia Present
--- NOTE | 2021-03-23 20:04 | DS ---
DISCHARGE SUMMARY DATE OF SERVICE: 03/23/2021. PRELIMINARY CAUSE OF : Metastatic pancreatic cancer. OTHER DIAGNOSES: 1. Severe weakness, generalized weakness. 2. Oral thrush. 3. History of pancreatic cancer. 4. Hypercalcemia secondary to pancreatic cancer. 5. Hypovolemic hyponatremia. 6. Hypertension. 7. Elevated white count. 8. Thrombocytopenia. 9. NO CODE, NO CPR, NO VENT. HISTORY OF PRESENT ILLNESS: This 60-year-old gentleman with a past medical history of multiple medical problems, being followed by Dr. Johansen in the outpatient setting, had severe hypercalcemia, dehydration. The patient was monitored closely. The hypercalcemia did not improve much and the patient's condition progressively deteriorated. Discussion was held with the family, especially two daughters, and they agreed that because of the patient's poor general condition and poor quality of life, comfort measures were appropriate. Hospice was also consulted, but they were unable to cover him because of insurance reasons. Please refer to the hospice notes and heel caser notes for further details. The patient was started on morphine drip and the patient succumbed to the above- mentioned illnesses. The prognosis remained extremely guarded throughout the hospital stay, which was discussed with family members on multiple occasions. MMODL / IJN: [id number] /
--- NOTE | 2021-03-26 08:58 | CDI ---
Documentation Clarification Form Date: 03/26/2021 08:43:12 AM From: Christen Bhakta CCS, CCDS Admit Date: 03/20/2021 10:21:00 PM Patient Name: Norbert Schmitt Visit Number: [id number] Discharge Date: 03/23/2021 06:00:00 PM ATTENTION: The Clinical Documentation Specialists (CDI) and [facility] Coding Staff appreciate your assistance in clarifying documentation. Please respond to the clarification below the line at the bottom and electronically sign. The CDI & [facility] Coding staff will review the response and follow-up if needed. Please note: Queries are made part of the Legal Health Record. If you have any questions, please contact the author of this message via ITS. Dr. Ernst Perkins: Encephalopathy is documented in the 03/21 History & Physical without further specificity. Per the documentation: Found to have highly elevated ionized Calcium of 7.1. Patient may have mild confusion secondary to that, patient is a bit slow, alert, oriented, does have elevated liver enzymes. Additional clarification regarding the type of encephalopathy is requested. History/Risk Factors per the 03/21 H/P: Advanced Stage IV Pancreatic Cancer with metastasis to Liver and Lung, has completed some chemotherapy. Hypertension, Hyperlipidemia, Osteoarthritis, BPH, Colostomy. Clinical Indicators: Presented to the ED on 03/20 with weakness, frequent falls with history of Stage IV Pancreatic Cancer with metastatic disease. Fall, hit his head and face sometime the day before. Preparing for additional chemotherapy, has discussed hospice. Bruising to the forehead and small hematoma to the occiput. ED Clinical Impression. Borderline low blood pressure, Hypercalcemia & Generalized Weakness, Fall risk. 03/20 VS: T 97.9 - 97.5; P 111 - 96; R 16 - 20; BP 84/56, PO 94 RA, BMI: 20.5 03/20 LAB: WBC 26.2, RBC 3.65, Hgb 10.3, Hct 32.6, Pl Ct 91, Neut 23.2, Lymph 0.9; PT 14.3, INR 1.4; Na 130, l 93, CO2 32, BUN 29, Calcium 12.4, Ionized Calcium 7.1, total Bili 1.7, AST 197, AT 69, Alk Phos 764, total Protein 4.7, Albumin 2.1. 03/20 CXR: Negative. 03/20 CT Brain/C Spine: Mild cerebral atrophy. Spondylotic changes C spine. Degenerative subluxation C3-4. Treatment 03/20: IV Na Cl 999 mls/hr q1H, IV Na Cl 20 mls/hr q24H, IV Vanco 125 mls/hr x1. 03/21: IV Na Cl 500 mls @ 999 mls/hr q31M, IV Vancomycin 125 mls/hr q8H, IV Na Cl w/Pamidronate disodium 250 mls @ 83 mls/hr q3H. 03/22: IM Miacalcin 400 unit IM q12H, 03/23: IV Lasix 40 mg x1. Please clarify the type of encephalopathy, if known: [ ] Metabolic Encephalopathy [ ] Toxic Encephalopathy [ ] Traumatic Encephalopathy [ ] Hepatic Encephalopathy [ ] Other, please specify [ ] Unable to determine (Template Last Revised: September 2020) Metabolic Encephalopathy MTDD
== END 2021-03-23 18:00 | disposition expired | DRG 640 ==
LOC: EC 19:50 → 5NMEDONC 22:21
PROVIDERS: ADMIT Hospitalist; ATTEND Hospitalist
DX: E83.52 Hypercalcemia (principal); G93.41 Metabolic encephalopathy; C25.9 Malignant neoplasm of pancreas, unspecified; C78.7 Secondary malignant neoplasm of liver and intrahepatic bile duct; C78.00 Secondary malignant neoplasm of unspecified lung; B37.0 Candidal stomatitis; E87.1 Hypo-osmolality and hyponatremia; E86.0 Dehydration; D69.6 Thrombocytopenia, unspecified; D72.829 Elevated white blood cell count, unspecified; E78.5 Hyperlipidemia, unspecified; E86.1 Hypovolemia; F41.9 Anxiety disorder, unspecified; I10 Essential (primary) hypertension; Z20.822 Contact with and (suspected) exposure to COVID-19; D63.0 Anemia in neoplastic disease; Z51.5 Encounter for palliative care; Z66 Do not resuscitate; N40.0 Benign prostatic hyperplasia without lower urinary tract symptoms; R29.6 Repeated falls; Z91.81 History of falling; S00.83XA Contusion of other part of head, initial encounter; W19.XXXA Unspecified fall, initial encounter; Z93.3 Colostomy status; Z87.891 Personal history of nicotine dependence; Z92.21 Personal history of antineoplastic chemotherapy; R19.7 Diarrhea, unspecified
CPT/HCPCS: 36415; 70450; 71045; 72125; 72170; 80048; 80053; 80202; 81003; 82140; 82330; 83605; 83735; 83970; 85025; 85027; 85610; 85730; 87040; 87045; 87046; 87324; 87635; 93005; 96360; 99285